=== PATIENT | male | born 1955 | race African-American/Black ===

== ENCOUNTER 2025-01-15 09:30 | Emergency (ER) | payer MEDICARE, SELFPAY ==
[2025-01-15 09:37] VITALS: BP 139/88; BP 141/65; PULSE 89; PULSE 91; RESP 17; TEMP 36.7; O2SAT 97; O2SAT 99; BMI 34.7
--- NOTE | 2025-01-15 09:41 | ECG_ITS ---
Test Reason : syncope Blood Pressure : */* mmHG Vent. Rate : 82 BPM Atrial Rate : 82 BPM P-R Int : 116 ms QRS Dur : 82 ms QT Int : 386 ms P-R-T Axes : 41 -21 46 degrees QTcB Int : 450 ms Normal sinus rhythm Increased R/S ratio in V1, consider early transition or posterior infarct Abnormal ECG No previous ECGs available Referred By: Ashley Grant Electronically Signed By: AARON HERNÁNDEZ MD
--- NOTE | 2025-01-15 09:47 | ED_ITS ---
HPI - Syncope General Chief Complaint: Syncope Stated Complaint: DIZZY W/SYNCOPAL EPISODE,ETOH LAST NIGHT PER EMS Time Seen by Provider: 01/15/25 09:32 Source: patient and EMS Mode of arrival: EMS Limitations: no limitations History of Present Illness ED Provider: EUFEMIA CHEN narrative: 69 yo male who was on metoprolol in the very remote past for HTN otherwise has not been to the doctor in several years - he reports he drinks every night vodka to get a good buzz to help him sleep. No seizure reported in past. He notes no recent GIB, n/v/d, CP/SOB, travel. He lives here newly from [place] and it is loud and he cannot sleep. This AM upon walking and getting up he felt dizzy and like he was going to pass out - no CP/SOB, son caught him no trauma and he was out for a few minutes - no loss of pulse, no cyanosis, no vomiting, no confusion, no seizurs\es MD complaint: loss of consciousness Onset (ago): minute(s) ([employer]) Duration of episode: 3 -: minutes(s) Prodromal symptoms: vision changes, lightheaded and nausea/vomiting Witnessed: Yes - by Bystander Context: standing up Injuries sustained associated with event: none Current symptoms: none Treatments prior to arrival: none Related Data Allergies Allergy/AdvReac Type Severity Reaction Status Date / Time No Known Allergies Allergy Verified 01/15/25 09:39 Review of Systems 2 Review of Systems: Constitutional : No Fever, No Chills, No Fatigue ENT/Mouth : No sore throat, No Rhinorrhea Eyes: No Eye Pain, No Swelling, No Redness Cardiovascular : No Chest Pain, No SOB, No Dyspnea on Exertion Respiratory : No Cough, No Sputum Gastrointestinal : No Nausea, No Vomiting, No Diarrhea, No abdominal Pain Genitourinary : No Dysuria, No Urinary Frequency, No Hematuria, Musculoskeletal : No joint pain, No Myalgias, No Joint Swelling Skin : No Skin Lesions, No rash Neuro : No Weakness, No Numbness, No Dizziness, positive syncope All other systems reviewed and are negative [facility] Past Medical History Attestation statement: The following information was validated with the patient. Source: old records reviewed Medical History HTN (hypertension) Social History Social History (Updated 01/15/25 @ 09:50 by Ashley Grant DO) Alcohol intake: current Patient Tobacco Use Status: Tobacco use Unknown Advance Directives: No Advance Directives Information Provided: Yes Do you have a plan to hurt others: No Plan Physical Exam 2 Vital Signs: Vital Signs: Last Vital Signs Temp 98.2 F 01/15/25 10:17 Pulse 107 H 01/15/25 10:37 Resp 18 01/15/25 10:17 BP 130/73 01/15/25 10:37 Pulse Ox 98 01/15/25 10:17 O2 Del Method Room Air 01/15/25 10:17 BMI result Body Mass Index 34.7 Appearance: Alert. Oriented X3. No acute distress. Eyes: Pupils equal, round and reactive to light. ENT: Pharynx normal. atraumatic Neck: Normal inspection. Neck supple. CVS: Normal heart rate and rhythm. Pulses normal. Respiratory: No respiratory distress. Breath sounds normal. Abdomen: Soft and nontender. Skin: Skin warm and dry. Normal skin color. Normal skin turgor. Extremities: No lower extremity edema. No calf ttp Neuro: Oriented X 3. No motor deficit. No sensory deficit. CN2-12 intact Course Course Course Narrative: on dizziness when standing spoke to son as well Medications Administered Discontinued Medications Generic Name Dose Route Start Last Admin Trade Name Freq PRN Reason Stop Dose Admin Thiamine HCl 200 mg/ Sodium 102 mls @ 204 mls/hr 01/15/25 09:41 01/15/25 10:15 Chloride IV 01/15/25 10:10 204 mls/hr ONCE ONE Administration Lactated Ringer's 1,000 mls @ 999 mls/hr 01/15/25 10:40 01/15/25 10:54 Lr IV 01/15/25 11:40 999 mls/hr .Q1H1M ONE Administration Magnesium Sulfate 2 gm in 50 mls @ 25 mls/hr 01/15/25 10:43 01/15/25 10:54 Magnesium Sulfate/H2o IV 01/15/25 12:42 25 mls/hr ONCE ONE Administration Potassium Chloride 40 meq 01/15/25 10:43 01/15/25 10:51 Potassium Chloride Er 20 Meq Tab.Er.Prt PO 01/15/25 10:44 40 meq ONCE ONE Administration Medical Decision Making Medical Decision Making MDM Narrative: 69 yo male who was on metoprolol in the very remote past for HTN here with c/o syncope with prodrome today and no CP/SOB he admits to drinking a lot each night throughout the night he has no GIB symptoms at this time labs, orthos, lytes, EKG. Could be anemia, dehydration, syncope orthostatics, ETOH abuse. No trauma reported or seen Differential Diagnosis Differential Diagnoses: The differential diagnosis associated with the presentation includes syncope, dehydration, anemia, orthostatics, ETOH abuse no CP/SOB or signs of DVT to suggest ACS or VTE Admission/Observation Consideration of admission/observation: Escalation of care including admission/observation considered at this time other than ETOH repeat trop negative no CP/SOB to suggest VTE repeat trop flat, steady gait, orthos negative stable for DC Lab Data MDM Lab Attestation statement: I reviewed the patient's lab results. 01/15/25 10:14 01/15/25 10:14 Labs: Lab Results 01/15/25 01/15/25 Range/Units 10:14 12:18 WBC 6.2 (4.8-10.8) X10*3/uL RBC 2.82 L (4.60-5.80) X10*6/uL Hgb 10.9 L (14.0-18.0) g/dl Hct 30.8 L (42.0-52.0) % MCV 109.2 H (80.0-98.0) fL MCH 38.7 H (27.0-33.0) pg MCHC 35.4 (31.0-36.0) g/dl RDW 15.3 (11.0-16.0) % Plt Count 178 (160-400) X10*3/uL MPV 9.8 (9.4-12.4) fL Immature Gran % (Auto) 0.5 H (0.0-0.4) % Neut % (Auto) 62.8 (45-73) % Lymph % (Auto) 26.8 (20-40) % Marion % (Auto) 9.4 (2-11) % Eos % (Auto) 0.2 (0-4) % Baso % (Auto) 0.3 (0-2) % Lymph # (Auto) 1.7 (1.2-4.9) X10*3/uL [place] # (Auto) 0.6 (0.1-1.2) X10*3/uL Eos # (Auto) 0.0 (0.0-0.4) X10*3/uL Baso # (Auto) 0.0 (0.0-0.2) X10*3/uL Abs Immat Gran (auto) 0.03 (0.00-0.03) X10*3/uL Absolute Neuts (auto) 3.9 (2.0-8.3) x10*3/uL Absolute Nucleated RBC 0.000 (0.0-0.012) X10*3/uL Nucleated RBC % (auto) 0.0 (0.0-0.2) /100WBC Sodium 142 (135-145) mmol/L Potassium 3.1 L (3.3-5.1) mmol/L Chloride 105 (96-108) mmol/L Carbon Dioxide 21 L (22-29) mmol/L Anion Gap 19 (12-20) BUN 7 L (9-16) mg/dL Creatinine 0.88 (0.5-1.4) mg/dL Estim Creat Clear Calc 83.7 Estimated GFR > 60 Random Glucose 74 (60-115) mg/dL Calcium 8.7 (8.4-10.2) mg/dL Magnesium 1.7 (1.6-2.6) mg/dL Total Bilirubin 0.8 (0.0-1.0) mg/dL Direct Bilirubin 0.5 (0.0-0.5) mg/dL AST 346 H (5-37) U/L ALT 87 H (0-40) U/L Alkaline Phosphatase 212 H (39-117) U/L Troponin I High Sens 8.1 8.6 (<3.5-35.0) ng/L Total Protein 7.2 (6.5-8.0) g/dL Albumin 3.7 (3.5-5.0) g/dL Lipase 13 (8-78) U/L Ethyl Alcohol 183 mg/dL Independent Interpretation I performed an independent interpretation of an: EKG Interpretation: Rate: 82 Rhythm: NSR [place]: left Normal P waves. Normal ELAINE. Normal QRS complex. ST T wave : normal no LIZBETH qTC: 450 prior studies: no acute ischemia The study has been interpreted contemporaneously by me. . Independent Historian Clinical information obtained from an independent historian. History obtained from or confirmed by: EMS Discharge Plan Discharge Clinical Impression: Vasovagal syncope, Alcohol use disorder, Hypokalemia Patient Disposition: Home, Self-Care Instructions: Hypokalemia (ED), Syncope (ED), Alcohol Use Disorder (ED) Additional Instructions: tests show a very positive alcohol level normal kidney function slight elevation in liver enzymes due to alcohol mild anemia 10.9 EKG and blood pressure when standing is normal at this time please call and follow up with primary care doctor limit your drinking you can follow up with our alcohol use clinic if necessary return for any worsening symptoms or concerns your potassium was slightly low we replaced it and also gave you vitamins through the IV Alcohol use disorder You were seen in the Emergency Department today for treatment of alcohol use disorder.? You may have been given medications to help with your withdrawal symptoms.? Please do not drink alcohol with them. This is very dangerous and can cause respiratory depression or other adverse reactions depending on the medication. If you would like to cut down or stop your alcohol use please consider calling our outpatient Addiction Treatment office:? [facility] (M-F 9a-5p) [address] [place] [address] ? You have also been given a list of treatment providers in the area that can assist as well.? If you experience seizures, vomiting blood, black stools, falls, severe headache, chest pain, fevers, trouble breathing, hallucinations or any other concerns you need to call 911 or seek immediate care. Please stay hydrated. Print Language: Scottish
--- NOTE | 2025-01-15 09:52 | MHC.EDTECH ---
ekg is done and passed to Dr. Grant, not crossing over on worklist
[2025-01-15] MEDS: Thiamine HCL 200 MG in 0.9 % Sodium Chloride 100 ML 204 MG IV (10:15)
[2025-01-15 10:17] VITALS: BP 138/89; PULSE 91; RESP 18; TEMP 36.8; O2SAT 98
[2025-01-15 10:20] LABS: MANUAL DIFF FLAG NO
[2025-01-15 10:25] LABS: Basophils Percent Auto 0.3 % (0-2); Eosinophils Percent Auto 0.2 % (0-4); Hematocrit 30.8 % (42.0-52.0); Hemoglobin 10.9 g/dl (14.0-18.0); Imm Gran Abs Auto 0.03 X10*3/uL (0.00-0.03); Imm Gran Pct Auto 0.5 % (0.0-0.4); Lymphocytes Absolute Auto 1.7 X10*3/uL (1.2-4.9); Lymphocytes Percent Auto 26.8 % (20-40); Mean Corpuscular HGB Conc 35.4 g/dl (31.0-36.0); Mean Corpuscular Hemoglobin 38.7 pg (27.0-33.0); Mean Corpuscular Volume 109.2 fL (80.0-98.0); Mean Platelet Volume 9.8 fL (9.4-12.4); Monocytes Absolute Auto 0.6 X10*3/uL (0.1-1.2); Monocytes Percent Auto 9.4 % (2-11); Neutrophils Absolute Auto 3.9 x10*3/uL (2.0-8.3); Neutrophils Percent Auto 62.8 % (45-73); Platelet Count 178 X10*3/uL (160-400); Red Blood Count 2.82 X10*6/uL (4.60-5.80); Red Cell Distribution Width 15.3 % (11.0-16.0); White Blood Count 6.2 X10*3/uL (4.8-10.8)
[2025-01-15 10:37] VITALS: BP 130/73; BP 130/85; BP 140/81; PULSE 102; PULSE 107; PULSE 89
[2025-01-15 10:40] LABS: Alanine Aminotransferase 87 U/L (0-40); Albumin Level 3.7 g/dL (3.5-5.0); Anion Gap 19 (12-20); Aspartate Amino Transferase 346 U/L (5-37); Bilirubin Direct 0.5 mg/dL (0.0-0.5); Bilirubin Total 0.8 mg/dL (0.0-1.0); Blood Urea Nitrogen 7 mg/dL (9-16); Calcium 8.7 mg/dL (8.4-10.2); Carbon Dioxide 21 mmol/L (22-29); Chloride 105 mmol/L (96-108); Creatinine Clr Calc Pharmacy 83.7; Estimated Glomerular Filt Rate > 60; Ethanol 183 mg/dL; Glucose Random 74 mg/dL (60-115); Lipase 13 U/L (8-78); Magnesium 1.7 mg/dL (1.6-2.6); Potassium 3.1 mmol/L (3.3-5.1); Sodium 142 mmol/L (135-145); Total Protein 7.2 g/dL (6.5-8.0)
[2025-01-15 10:41] LABS: Troponin-I High Sensitivity 8.1 ng/L (<3.5-35.0)
[2025-01-15] MEDS: Potassium Chloride ER 20 MEQ TAB.ER.PRT 40 MEQ PO (10:51)
[2025-01-15] MEDS: Lactated Ringers 1,000 ML 999 ML IV (10:54)
[2025-01-15] MEDS: Magnesium Sulfate/H2O 2 GM/50 ML PIGGYBACK IV (10:54)
[2025-01-15 11:06] LABS: Alkaline Phosphatase 212 U/L (39-117)
[2025-01-15 12:47] LABS: Troponin-I High Sensitivity 8.6 ng/L (<3.5-35.0)
[2025-01-15 13:04] VITALS: O2SAT 99
[2025-01-15 13:11] VITALS: BP 136/82; PULSE 98; RESP 18; TEMP 36.7; O2SAT 97
[2025-01-15 13:12] VITALS: BP 136/82; PULSE 98; RESP 18; TEMP 36.7; O2SAT 97
== END 2025-01-15 13:12 | disposition home or self-care (01) ==
PROVIDERS: Emergency Provider Emergency Medicine
DX: R55 Syncope and collapse (principal); E87.6 Hypokalemia; F10.99 Alcohol use, unspecified with unspecified alcohol-induced disorder; Y90.6 Blood alcohol level of 120-199 mg/100 ml; Z79.899 Other long term (current) drug therapy
CPT/HCPCS: 36415; 80048; 80076; 80307; 83690; 83735; 84484; 85025; 93005; 96361; 96365; 96375; 99285; J3411; J3475; J7120

== ENCOUNTER → 2025-01-15 09:41 | Outpatient (BNV) | payer MEDICARE, SELFPAY | PROVIDERS: Emergency Provider Emergency Medicine; Visit Provider Internal Medicine Cardiovascular Disease | DX: R94.31 Abnormal electrocardiogram [ECG] [EKG] (principal); R55 Syncope and collapse | CPT/HCPCS: 93010 ==

== ENCOUNTER 2025-06-05 19:39 | Inpatient (IN) | payer MEDICARE, SELFPAY ==
--- NOTE | ~2025-06-05 | XR_ITS ---
CLINICAL HISTORY: pain 4 view left knee Comparison: None provided Findings: No fractures or dislocations. Tricompartmental osteoarthritis. No joint effusion. No radiopaque foreign body. IMPRESSION: 1. No acute findings. This document has been electronically signed by: Jasmin Pillai MD on 06/05/2025 20:34:59
--- NOTE | ~2025-06-05 | US_ITS ---
CLINICAL HISTORY: elevated lfts, r o gallstones --- Additional Notes or Special Instructions: liver and gallbladder US abdomen limited Comparison: CT/SR - CT ABDOMEN PELVIS W IV CON - 06/05/25 21:34 EDT Findings: The liver is diffusely hyperechoic and measures up to 20.4 cm in length. Couple right hepatic lobe subcentimeter cysts. There is no intrahepatic bile duct dilatation. The common bile duct is 5 mm in diameter. The gallbladder is normal. There is no sonographic Evangelista sign. No evidence of right hydronephrosis. No ascites. IMPRESSION: 1. Hepatic steatosis and hepatomegaly. 2. Normal gallbladder. This document has been electronically signed by: Moncho Howell DO on 06/07/2025 12:15:56
--- NOTE | ~2025-06-05 | CT_ITS ---
CLINICAL HISTORY: poor appetite, abnormal LFTs, elevated lipase, brayan CT abdomen and pelvis with contrast Comparison: None provided Findings: Mild dependent atelectasis. Small hiatal hernia. Calcified granulomas in the spleen. Severe hepatic steatosis. Gallbladder, pancreas, and adrenal glands are within normal limits. No biliary duct dilatation. No hydronephrosis. Symmetric contrast enhancement of the kidneys. No bowel obstruction, pneumoperitoneum, or pneumatosis. Small fat containing umbilical hernia. Aortic atherosclerosis. No aneurysm. Pelvic contents unremarkable. Normal appendix. No acute fracture. IMPRESSION: 1. No acute intraabdominal or pelvic pathology. 2. Severe hepatic steatosis. This document has been electronically signed by: Jasmin Pillai MD on 06/05/2025 22:33:31
--- NOTE | ~2025-06-05 | XR_ITS ---
CLINICAL HISTORY: pain 4 view right knee Comparison: None provided Findings: No fractures or dislocations. Tricompartmental osteoarthritis. No joint effusion. No radiopaque foreign body. IMPRESSION: 1. No acute findings. This document has been electronically signed by: Jasmin Pillai MD on 06/05/2025 20:34:56
--- NOTE | ~2025-06-05 | MR_ITS ---
CLINICAL HISTORY: dizziness vertiago perssistent -? cerebellar cva MR Brain without gadolinium Comparison: None provided Findings: No restricted diffusion. No intra-axial mass or hemorrhage. No midline shift. No hydrocephalus. Vascular flow voids are intact. Mild generalized cerebral volume loss and moderate periventricular and subcortical T2/ FLAIR hyperintensities. The orbits are normal. The sinuses and mastoid air cells are clear. No focal bone lesion. IMPRESSION: No acute infarct, intracranial hemorrhage or mass lesions. Mild generalized cerebral volume loss and moderate periventricular and subcortical chronic microvascular ischemic changes. This document has been electronically signed by: Fahad Patel MD on 06/08/2025 20:37:11
--- NOTE | 2025-06-05 19:43 | ECG_ITS ---
Test Reason : WEAKNESS Blood Pressure : */* mmHG Vent. Rate : 102 BPM Atrial Rate : 102 BPM P-R Int : 144 ms QRS Dur : 76 ms QT Int : 346 ms P-R-T Axes : 48 -16 28 degrees QTcB Int : 450 ms Sinus tachycardia with Premature atrial complexes Otherwise normal ECG When compared with ECG of 15-Jan-2025 09:44, Premature atrial complexes are now Present Referred By: Ashley Grant Electronically Signed By: Sourav Smith
[2025-06-05 19:45] VITALS: BP 138/70; PULSE 112; O2SAT 100; BMI 26.6
[2025-06-05 20:48] LABS: MANUAL DIFF FLAG NO
--- NOTE | 2025-06-05 20:48 | ED_ITS ---
HPI - General Adult General Chief complaint: General Medical Stated complaint: syncopal episode Time Seen by Provider: 06/05/25 19:42 Source: patient, EMS and old records reviewed Mode of arrival: EMS Limitations: no limitations History of Present Illness ED Provider: EUFEMIA CHEN narrative: 69 yo male with PMH of ETOH use disorder, HTN who notes he has been tired, weak, difficulty walking due to issues with pain in both knees and he doesn't eat well. He notes recently when he tries to get up and he feels like he has pain around the knees and gets stuck. He states he doesn't eat well as no one cooks for him. He notes he lives with his son. Farzana he decided he would try [facility] but then he tried to get up and head back to the van and he had a hard time. No falls. He had to sit himself down as he couldn't get all the way up. He notes this has been going on for 5+ months. I asked if he would better served at a rehab and he states yes. He states he is so weak and doesn't feel well. complaint: difficulty walking, caring for himself, cannot walk well Onset (ago): month(s) (5+) Location: left, right and lower extremity Radiation: non-radiation Severity: moderate Quality: aching Pain Consistency: intermittent Relieving factors: none Exacerbating factors: movement Associated symptoms: weakness and other (weight loss) Treatments prior to arrival: none Related Data Allergies Allergy/AdvReac Type Severity Reaction Status Date / Time No Known Allergies Allergy Verified 06/05/25 19:47 Review of Systems 2 Review of Systems: Constitutional : No Fever, No Chills ENT/Mouth : No Ear Pain, No Hoarseness, No sore throat Eyes: No Eye Pain, No Swelling, No Redness, No Foreign Body Cardiovascular : No Chest Pain, No SOB Respiratory : No Cough, No Dyspnea Gastrointestinal : No Nausea, No Vomiting, No Diarrhea, No abdominal Pain Genitourinary : No Dysuria, No Hematuria Musculoskeletal : positive joint pain, No Myalgias, No Joint Swelling Skin : No Skin lacerations, No rash Neuro :pos Weakness, No Numbness, No Loss of Consciousness, No Dizziness, No Headache All other systems reviewed and are negative [facility] Past Medical History Attestation statement: The following information was validated with the patient. Source: old records reviewed Medical History HTN (hypertension) Social History Social History Alcohol intake: current Patient Tobacco Use Status: Tobacco use Unknown Advance Directives: No Advance Directives Information Provided: Yes Do you have a plan to hurt others: No Plan Physical Exam ED Vital Signs: Vital Signs - 24 hr 06/05/25 22:30 Temperature 98.3 F Pulse Rate 86 Respiratory Rate 16 Blood Pressure 101/55 L Pulse Oximetry 99 Oxygen Delivery Method Room Air BMI result Body Mass Index 26.6 Appearance: Alert. Oriented X3. No acute distress. disheveled, older than stated age, clothes are dirty and unkempt Eyes: Pupils equal, round and reactive to light. ENT: Pharynx normal. atraumatic Neck: Normal inspection. Neck supple. CVS: Normal heart rate and rhythm. Pulses normal. Respiratory: No respiratory distress. Breath sounds normal. Abdomen: Soft and nontender. Skin: Skin warm and dry. Normal skin color. Normal skin turgor. Extremities: No lower extremity edema. No calf ttp Neuro: Oriented X 3. No motor deficit. No sensory deficit. CN2-12 intact he can move legs but needs help getting up with pain in both knees Course Course Course Narrative: infection suspected at 1028pm IV ceftriaxone/cultures/lactic acid ordered Reevaluation(s) Reevaluation #1: bili elevated due to likely chronic ETOH use/fatty liver and not infection or severe sepsis delay in lactic acid and cultures due to difficult stick and had to have repeated efforts 1123pm EUEFMIA Medications Administered Discontinued Medications Generic Name Dose Route Start Last Admin Trade Name Freq PRN Reason Stop Dose Admin Magnesium Sulfate 2 gm in 50 mls @ 25 mls/hr 06/05/25 21:06 06/05/25 21:55 Magnesium Sulfate/H2o IV 06/05/25 23:05 25 mls/hr ONCE ONE Administration Thiamine HCl 200 mg/ Sodium 102 mls @ 204 mls/hr 06/05/25 21:06 06/05/25 21:55 Chloride IV 06/05/25 21:35 204 mls/hr ONCE ONE Administration Iohexol 85 ml 06/05/25 21:37 06/05/25 21:38 Iohexol 350 Mg/Ml 100 Ml Infus..Btl IV 06/05/25 21:38 85 ml ONCE ONE Administration Medical Decision Making Medical Decision Making [facility] Narrative: 69 yo male with PMH of ETOH use disorder, HTN who notes he has been tired, weak, difficulty walking due to issues with pain in both knees now here with another episode and needing help to get up he has no dizziness or near syncope it is that he gets stuck due to his knees and legs not working as well. He has no chest pain/dyspnea/fevers/n/v/d. He is disheveled and tells me he doesn't eat as no one cooks for him. Differential Diagnosis Differential Diagnoses: The differential diagnosis associated with the presentation includes FTT, dehydration, anemia, arthritis Admission/Observation Consideration of admission/observation: Escalation of care including admission/observation considered admit for further management and work up including IV abx Consult Healthcare Provider Management of the patient was discussed with: Hospitalist (will admit) Lab Data [facility] Lab Attestation statement: I reviewed the patient's lab results. 06/05/25 20:42 06/05/25 20:42 Labs: Lab Results 06/05/25 06/05/25 06/05/25 Range/Units 20:42 22:15 23:07 WBC 6.1 (4.8-10.8) X10*3/uL RBC 2.44 L (4.60-5.80) X10*6/uL Hgb 9.5 L (14.0-18.0) g/dl Hct 26.8 L (42.0-52.0) % MCV 109.8 H (80.0-98.0) fL MCH 38.9 H (27.0-33.0) pg MCHC 35.4 (31.0-36.0) g/dl RDW 15.3 (11.0-16.0) % Plt Count 140 L (160-400) X10*3/uL MPV 10.3 (9.4-12.4) fL Immature Gran % (Auto) 1.3 H (0.0-0.4) % Neut % (Auto) 75.9 H (45-73) % Lymph % (Auto) 13.1 L (20-40) % Carbon % (Auto) 9.3 (2-11) % Eos % (Auto) 0.2 (0-4) % Baso % (Auto) 0.2 (0-2) % Lymph # (Auto) 0.8 L (1.2-4.9) X10*3/uL Carbon # (Auto) 0.6 (0.1-1.2) X10*3/uL Eos # (Auto) 0.0 (0.0-0.4) X10*3/uL Baso # (Auto) 0.0 (0.0-0.2) X10*3/uL Abs Immat Gran (auto) 0.08 H (0.00-0.03) X10*3/uL Absolute Neuts (auto) 4.6 (2.0-8.3) x10*3/uL Absolute Nucleated RBC 0.020 H (0.0-0.012) X10*3/uL Nucleated RBC % (auto) 0.3 H (0.0-0.2) /100WBC Sodium 139 (135-145) mmol/L Potassium 4.0 D (3.3-5.1) mmol/L Chloride 103 (96-108) mmol/L Carbon Dioxide 23 (22-29) mmol/L Anion Gap 17 (12-20) BUN 8 L (9-16) mg/dL Creatinine 1.20 (0.5-1.4) mg/dL Estim Creat Clear Calc 58.0 Estimated GFR > 60 Random Glucose 202 H (60-115) mg/dL Lactic Acid 3.9 H* (0.5-2.0) mmol/L Calcium 8.6 (8.4-10.2) mg/dL Magnesium 1.4 L* (1.6-2.6) mg/dL Total Bilirubin 1.9 H (0.0-1.0) mg/dL Direct Bilirubin 1.2 H (0.0-0.5) mg/dL AST 157 H (5-37) U/L ALT 65 H (0-40) U/L Alkaline Phosphatase 141 H (39-117) U/L Total Protein 6.2 L (6.5-8.0) g/dL Albumin 3.4 L (3.5-5.0) g/dL Lipase 161 H (8-78) U/L Urine Color PINK Urine Appearance Cloudy Urine pH 6.0 (5.0-9.0) Ur Specific [place] <= 1.005 (1.005-1.025) Urine Protein 100 (2+) H (Neg-Trace) mg/dL Urine Glucose (UA) Negative (Negative) mg/dL Urine Ketones Negative (Negative) mg/dL Urine Blood Large (3+) H (Negative) Urine Nitrite Positive H (Negative) Ur Leukocyte Esterase Moderate (2+) H (Negative) Urine RBC >20 H (0-2) /HPF Urine WBC >50 H (0-5) /HPF Ur Squamous Epith Cells 0-2 (0-2) /HPF Urine Bacteria 4+ (None Seen) Hyaline Casts 0-2 (0-2) /LPF Ethyl Alcohol < 10 mg/dL Independent Interpretation I performed an independent interpretation of an: EKG, Plain X-Ray (no acute trauma) and CT Scan (fatty liver) Interpretation: Rate: 102 Rhythm: sinus tachycardia with PACs [place]: left Normal P waves. Normal ELAINE. Normal QRS complex. ST T wave : no LIZBETH, flat t waves III qTC: 450 prior studies: no acute ischemia The study has been interpreted contemporaneously by me. . Radiology Impression Discussion of test interpretation with radiology: I have reviewed the radiologist's reading. Independent Historian Clinical information obtained from an independent historian. History obtained from or confirmed by: EMS External Record Review External record reviewed: Outpatient record Social Determinants Patient?s care significantly limited by Social Determinants of Health including: Problems related to primary support group Discharge Plan Discharge Clinical Impression: Hypomagnesemia, Abnormal LFTs, Acute UTI, Acidosis, lactic Patient Disposition: Admitted As Inpatient Print Language: Kazakh
[2025-06-05 20:59] LABS: Hematocrit 26.8 % (42.0-52.0); Hemoglobin 9.5 g/dl (14.0-18.0); Imm Gran Abs Auto 0.08 X10*3/uL (0.00-0.03); Imm Gran Pct Auto 1.3 % (0.0-0.4); Lymphocytes Absolute Auto 0.8 X10*3/uL (1.2-4.9); Mean Corpuscular HGB Conc 35.4 g/dl (31.0-36.0); Mean Corpuscular Hemoglobin 38.9 pg (27.0-33.0); Mean Corpuscular Volume 109.8 fL (80.0-98.0); NRBC Abs Auto 0.020 X10*3/uL (0.0-0.012); NRBC Pct Auto 0.3 /100WBC (0.0-0.2); Platelet Count 140 X10*3/uL (160-400); Red Blood Count 2.44 X10*6/uL (4.60-5.80); White Blood Count 6.1 X10*3/uL (4.8-10.8)
[2025-06-05 21:06] LABS: Alanine Aminotransferase 65 U/L (0-40); Albumin Level 3.4 g/dL (3.5-5.0); Alkaline Phosphatase 141 U/L (39-117); Anion Gap 17 (12-20); Aspartate Amino Transferase 157 U/L (5-37); Blood Urea Nitrogen 8 mg/dL (9-16); Calcium 8.6 mg/dL (8.4-10.2); Carbon Dioxide 23 mmol/L (22-29); Chloride 103 mmol/L (96-108); Creatinine Clr Calc Pharmacy 58.0; Estimated Glomerular Filt Rate > 60; Lipase 161 U/L (8-78); Magnesium 1.4 mg/dL (1.6-2.6); Potassium 4.0 mmol/L (3.3-5.1); Sodium 139 mmol/L (135-145); Total Protein 6.2 g/dL (6.5-8.0)
[2025-06-05] MEDS: iohexoL 350 MG/ML 100 ML INFUS..BTL 85 ML IV (21:38)
[2025-06-05] MEDS: Thiamine HCL 200 MG in 0.9 % Sodium Chloride 100 ML 204 MG IV (21:55)
[2025-06-05] MEDS: Magnesium Sulfate/H2O 2 GM/50 ML PIGGYBACK IV (21:55)
[2025-06-05 22:22] LABS: Appearance Urine Cloudy; Glucose Urine UA Negative (Negative); PH 6.0 (5.0-9.0); Specific Gravity - Urine <= 1.005 (1.005-1.025); UMIC TRIGGER UACC YES
[2025-06-05 22:28] LABS: UACC Culture Trigger YES
[2025-06-05 22:30] VITALS: BP 101/55; PULSE 86; RESP 16; TEMP 36.8; O2SAT 99
[2025-06-05] MEDS: Lactated Ringers 1,000 ML 999 ML IV ×2 (23:20→23:59)
[2025-06-06] VITALS (14 sets, daily range): BP systolic 103–140; BP diastolic 64–91; PULSE 78–111; RESP 12–20; TEMP 36.1–36.8; O2SAT 94–99; BMI 32.0
--- NOTE | 2025-06-06 00:42 | PM.IMHP ---
History of Present Illness Date of Service: 06/05/25 Attending physician on admission: Kash Fernandez Chief Complaint: Dizziness Jus Beatty is a 69 years old man with past medical history significant for gout was brought to the emergency department via ambulance after he had an event of dizziness today. He also mentioned that his legs became suddenly weak and had to sit himself down. He denied any lower back pain or numbness to the lower extremities. He denied loss of consciousness. He also denied any headache, acute visual disturbances, focal weakness, speech difficulty, swallowing difficulty, chest pain, shortness on breath, cough, fever, chills, abdominal pain, nausea, vomiting or diarrhea. He has noted that his urine is getting darker and have mild pain with urination. He drinks two shots of vodka before going to sleep and has been doing this for a long time. He smoked cigars sometimes and denied illicit drug use. He only takes medications for gout, allopurinol. He denied history of high blood pressure, diabetes mellitus, hyperlipidemia or liver disease. In the ED, he was found to have stable vital signs. Blood workup showed no leukocytosis. Hemoglobin is 9.5 and platelets 140. There is hypomagnesemia 1.4 but no other electrolyte imbalances. There is lactic acidosis of 3.9. LFTs are significantly elevated: Total bilirubin 1.9, direct bilirubin 1.2, AST 157, ALT 55, alk-phos 141. Lipase is 161 and albumin. Urinalysis consistent with hematuria and urinary tract infection. ETOH level is < 10. Knee x-rays are negative. Abdominal pelvis CT scan with IV contrast showed no acute intra-abdominal/pelvis abnormalities. There is severe hepatic steatosis. ECG shows sinus tachycardia with PACs and no ischemic changes. ED Tx: Magnesium 2 g IV, thiamine 200 mg IV, ringer lactate 1 L bolus, ceftriaxone 1 g IV Review of Systems Review of Systems: All 12 systems were reviewed and normal except as noted in HPI. [facility] Medical History (Updated 06/06/25 @ 01:16 by Kash Fernandez MD) Gout HTN (hypertension) Social History Alcohol intake: current Patient Tobacco Use Status: Tobacco use Unknown Advance Directives: No Advance Directives Information Provided: Yes Do you have a plan to hurt others: No Plan Meds Allergies Allergy/AdvReac Type Severity Reaction Status Date / Time No Known Allergies Allergy Verified 06/05/25 19:47 Active Medications: Current Medications Acetaminophen (Acetaminophen 325 Mg Tablet) 650 mg PO Q6H PRN PRN Reason: Pain, Mild 1-3,fever,headache Calcium Carbonate (Calcium Carbonate 750 Mg Tab.Chew) 750 mg PO Q4H PRN PRN Reason: Heartburn Ceftriaxone Sodium (Ceftriaxone Sodium 1 Gm Vial) 1 gm IVPUSH Q24H CHEY Magnesium Hydroxide (Milk Of Magnesia 30 Ml Oral.Susp) 30 ml PO DAILY PRN PRN Reason: Constipation Melatonin (Melatonin 3 Mg Tablet) 6 mg PO BEDTIME PRN PRN Reason: Insomnia Sodium Chloride (0.9 % Sodium Chloride Flush 3 Ml Syringe) 3 ml IVFLUSH QSHIFT CHEY Physical Exam Vital Signs and Narrative: Vital Signs: Last Vital Signs Temp 98.3 F 06/05/25 22:30 Pulse 86 06/05/25 22:30 Resp 16 06/05/25 22:30 BP 101/55 L 06/05/25 22:30 Pulse Ox 99 06/05/25 22:30 O2 Del Method Room Air 06/05/25 22:30 BMI result Body Mass Index 26.6 Constitutional - Awake and Alert, No apparent distress HEENT - PERRL, EOMI. Normal sclerae. Dry oral mucosa. Heart - S1S2, RRR, No edema Lungs - Normal lung expansion, Normal respiratory effort, No respiratory distress, CTA bilaterally Abdomen - NT / ND; +BS; No rebound or guarding Extremities - no calf tenderness bilaterally, no swelling Musculoskeletal - Normal inspection, normal ROM Skin - Warm/Dry. No jaundice. Neurological - Alert & oriented x3. Moving all extremities spontaneously. Normal speech. Psychological - Appropriate affect Results Labs 06/05/25 20:42 06/05/25 20:42 Labs: Laboratory Results - last 24 hr 06/05/25 06/05/25 06/05/25 20:42 22:15 23:07 MCV 109.8 H MCH 38.9 H MCHC 35.4 RDW 15.3 Plt Count 140 L MPV 10.3 Immature Gran % (Auto) 1.3 H Neut % (Auto) 75.9 H Lymph % (Auto) 13.1 L [place] % (Auto) 9.3 Eos % (Auto) 0.2 Baso % (Auto) 0.2 Lymph # (Auto) 0.8 L [place] # (Auto) 0.6 Eos # (Auto) 0.0 Baso # (Auto) 0.0 Abs Immat Gran (auto) 0.08 H Absolute Neuts (auto) 4.6 Absolute Nucleated RBC 0.020 H Nucleated RBC % (auto) 0.3 H Anion Gap 17 Estim Creat Clear Calc 58.0 Estimated GFR > 60 Random Glucose 202 H Lactic Acid 3.9 H* Calcium 8.6 Magnesium 1.4 L* Total Bilirubin 1.9 H Direct Bilirubin 1.2 H AST 157 H ALT 65 H Alkaline Phosphatase 141 H Total Protein 6.2 L Albumin 3.4 L Lipase 161 H Urine Color PINK Urine Appearance Cloudy Urine pH 6.0 Ur Specific [place] <= 1.005 Urine Protein 100 (2+) H Urine Glucose (UA) Negative Urine Ketones Negative Urine Blood Large (3+) H Urine Nitrite Positive H Ur Leukocyte Esterase Moderate (2+) H Urine RBC >20 H Urine WBC >50 H Ur Squamous Epith Cells 0-2 Urine Bacteria 4+ Hyaline Casts 0-2 Ethyl Alcohol < 10 Assessment and Plan (1) Abnormal LFTs: Status: Acute (2) Acute UTI: Status: Acute (3) Acidosis, lactic: Status: Acute (4) Hypomagnesemia: Status: Acute Plan Jus Beatty is a 69 y/l man presents with: Elevated LFTs likely secondary to severe hepatic steatosis due to alcohol abuse. Patient advised to avoid alcohol consumption. Check GGT, INR tightness panel. Continue to monitor. GI consult. Acute lactic acidosis. Doubt severe sepsis. Likely secondary to above/liver disease. Received LE 2L bolus. Blood cultures obtained -will follow results. Continue to monitor. Alcohol use disorder. [facility] protocol. Continue thiamine, folic acid and multivitamins. Hypomagnesemia, secondary to above. Telemetry. Receive magnesium sulfate 2 mg IV in ED. start treatment with magnesium oxide 400 mg p.o. b.i.d.. Continue to monitor. Urinary tract infection. Continue ceftriaxone 1 g IV daily. Urine culture obtained -we will follow results. Macrocytic anemia. Anemia workup. Continue to monitor. Dizziness. Fall precautions. Check TTE. Lower extremities weakness. No back pain or numbness. Fall precautions. Check vitamin-D. Physiotherapy. Gout. Continue allopurinol. Remote history of hypertension. No longer on metoprolol. BP is 101/55 tonight. Continue to monitor BP. Code status: Full DVT prophylaxis: SCDs Patient will need hospitalization for at least 2 midnights for elevated LFTs, dizziness acute lactic acidosis IV fluids, blood workup monitor and evaluation by subspecialty. Quality Stroke Does the patient have a stroke diagnosis?: No VTE Prior VTE?: No VTE Risk Level:: Medical - moderate - high VTE Device Contraindication: N/A - Device Ordered VTE Drug Contraindication: Treatment Not Indicated
[2025-06-06 01:12] LABS: Reflex Lactate? Lactic Acid Added
[2025-06-06 01:23] LABS: Gamma Glutamyl Transpeptidase 592 U/L (11-51)
--- NOTE | 2025-06-06 01:39 | PC.NURSE ---
fluids finished at 0136. MD Eduardo told this nurse via tiger text to wait to draw Lactic acid until fluids complete. sandwich maker aware and in room at 0137.
[2025-06-06 02:04] LABS: ~Lactic Acid-LAB USE ONLY 3.6 mmol/L (0.5-2.0)
[2025-06-06 02:10] LABS: Cancel Lactic Acid Canceled
[2025-06-06 05:52] LABS: Hematocrit 29.0 % (42.0-52.0); Hemoglobin 10.3 g/dl (14.0-18.0); Imm Gran Abs Auto 0.07 X10*3/uL (0.00-0.03); Imm Gran Pct Auto 1.1 % (0.0-0.4); Lymphocytes Absolute Auto 1.7 X10*3/uL (1.2-4.9); MANUAL DIFF FLAG SCAN; Mean Corpuscular HGB Conc 35.5 g/dl (31.0-36.0); Mean Corpuscular Hemoglobin 38.4 pg (27.0-33.0); Mean Corpuscular Volume 108.2 fL (80.0-98.0); NRBC Abs Auto 0.020 X10*3/uL (0.0-0.012); NRBC Pct Auto 0.3 /100WBC (0.0-0.2); PLT CLUMP 1; Red Blood Count 2.68 X10*6/uL (4.60-5.80); Reticulocytes Absolute 0.084 X10*6/uL (0.026-0.095); SCAN SMEAR FLAG 1
[2025-06-06 05:57] LABS: INTERNATIONAL NORM RATIO 1.1 (0.9-1.1); Prothrombin Time 13.1 SEC (10.9-12.4)
[2025-06-06 06:01] LABS: Alanine Aminotransferase 64 U/L (0-40); Albumin Level 3.5 g/dL (3.5-5.0); Alkaline Phosphatase 147 U/L (39-117); Anion Gap 14 (12-20); Aspartate Amino Transferase 144 U/L (5-37); Blood Urea Nitrogen 7 mg/dL (9-16); Calcium 8.7 mg/dL (8.4-10.2); Carbon Dioxide 23 mmol/L (22-29); Chloride 102 mmol/L (96-108); Creatinine Clr Calc Pharmacy 67.0; Estimated Glomerular Filt Rate > 60; Magnesium 1.8 mg/dL (1.6-2.6); Potassium 3.2 mmol/L (3.3-5.1); Sodium 136 mmol/L (135-145); Total Protein 6.9 g/dL (6.5-8.0)
[2025-06-06 06:07] LABS: Iron 82 mcg/dL (45-160); Percent Iron Saturation 65 % (15-50); Total Iron Binding Capacity 127 mcg/dL (228-428); Unsaturated Iron Binding 45 ug/dL
[2025-06-06 06:14] LABS: Platelet Count 129 X10*3/uL (160-400); White Blood Count 6.4 X10*3/uL (4.8-10.8)
[2025-06-06 06:35] LABS: Folate 6.8 ng/mL (> or = 4.0); Vitamin B12 351 pg/mL (200-900)
[2025-06-06 07:08] LABS: Ferritin 2311 ng/mL (20-250)
--- NOTE | 2025-06-06 08:34 | HO.PM.IMPN ---
Subjective Subjective Date of Service: 06/06/25 Interval History: uti Review of Systems seems feeling similar seems generlaised weak Review of Systems: Yes all other systems are reviewed and are negative Physical Exam Exam: Exam: Appearance: Alert.? Oriented X3.? cvs: [id number], [id number] res: clear to auscultation ,no rhonchii or wheezing abd: no rebound or guarding ,nt, bs present. ext pulses present , no cyanosis . neuro: axo3 , nonfocal. Vital Signs: Vital Signs: Last Vital Signs Temp 98.0 F 06/06/25 05:28 Pulse 88 06/06/25 08:31 Resp 13 06/06/25 08:31 BP 124/73 06/06/25 08:31 Pulse Ox 96 06/06/25 08:31 O2 Del Method Room Air 06/06/25 08:31 BMI result Body Mass Index 26.6 Objective Data Active Medications Acetaminophen (Acetaminophen 325 Mg Tablet) 650 mg PO Q6H PRN PRN Reason: Pain, Mild 1-3,fever,headache Calcium Carbonate (Calcium Carbonate 750 Mg Tab.Chew) 750 mg PO Q4H PRN PRN Reason: Heartburn Ceftriaxone Sodium (Ceftriaxone Sodium 1 Gm Vial) 1 gm IVPUSH Q24H CHEY Folic Acid (Folic Acid 1 Mg Tablet) 1 mg PO DAILY CHEY Magnesium Hydroxide (Milk Of Magnesia 30 Ml Oral.Susp) 30 ml PO DAILY PRN PRN Reason: Constipation Magnesium Oxide (Magnesium Oxide 400 Mg Tablet) 400 mg PO BIDPC CHEY Melatonin (Melatonin 3 Mg Tablet) 6 mg PO BEDTIME PRN PRN Reason: Insomnia Multivitamins/Vitamin C (Multivitamin Tablet) 1 tab PO DAILY CHEY Sodium Chloride (0.9 % Sodium Chloride Flush 3 Ml Syringe) 3 ml IVFLUSH QSHIFT CHEY Thiamine HCl (Thiamine Hcl 100 Mg Tablet) 100 mg PO DAILY CHEY Labs 06/06/25 05:35 06/06/25 05:35 Labs: Laboratory Results - last 24 hr 06/05/25 06/05/25 06/05/25 20:42 22:15 23:07 MCV 109.8 H MCH 38.9 H MCHC 35.4 RDW 15.3 Plt Count 140 L MPV 10.3 Immature Gran % (Auto) 1.3 H Neut % (Auto) 75.9 H Lymph % (Auto) 13.1 L [place] % (Auto) 9.3 Eos % (Auto) 0.2 Baso % (Auto) 0.2 Lymph # (Auto) 0.8 L [place] # (Auto) 0.6 Eos # (Auto) 0.0 Baso # (Auto) 0.0 Abs Immat Gran (auto) 0.08 H Absolute Neuts (auto) 4.6 Absolute Nucleated RBC 0.020 H Nucleated RBC % (auto) 0.3 H Smear Tech's Comments Absolute Retic Percent Retic Immature Retic Fraction Retic Hgb Equivalent Hold Purple Top PT INR Anion Gap 17 Estim Creat Clear Calc 58.0 Estimated GFR > 60 Random Glucose 202 H Lactic Acid 3.9 H* Lactic Acid F/U @ 2Hr Calcium 8.6 Magnesium 1.4 L* Iron TIBC % Saturation Unsat Iron Binding Ferritin Total Bilirubin 1.9 H Direct Bilirubin 1.2 H GGT 592 H AST 157 H ALT 65 H Alkaline Phosphatase 141 H Total Protein 6.2 L Albumin 3.4 L Lipase 161 H Vitamin B12 25-OH Vitamin D Total Folate Urine Color PINK Urine Appearance Cloudy Urine pH 6.0 Ur Specific [place] <= 1.005 Urine Protein 100 (2+) H Urine Glucose (UA) Negative Urine Ketones Negative Urine Blood Large (3+) H Urine Nitrite Positive H Ur Leukocyte Esterase Moderate (2+) H Urine RBC >20 H Urine WBC >50 H Ur Squamous Epith Cells 0-2 Urine Bacteria 4+ Hyaline Casts 0-2 Ethyl Alcohol < 10 06/06/25 06/06/25 06/06/25 01:42 05:35 05:35 MCV 108.2 H MCH 38.4 H MCHC 35.5 RDW 15.4 Plt Count 129 L MPV 10.7 Immature Gran % (Auto) 1.1 H Neut % (Auto) 63.3 Lymph % (Auto) 26.4 [place] % (Auto) 8.4 Eos % (Auto) 0.3 Baso % (Auto) 0.5 Lymph # (Auto) 1.7 [place] # (Auto) 0.5 Eos # (Auto) 0.0 Baso # (Auto) 0.0 Abs Immat Gran (auto) 0.07 H Absolute Neuts (auto) 4.1 Absolute Nucleated RBC 0.020 H Nucleated RBC % (auto) 0.3 H Smear Tech's Comments VERIFIED Absolute Retic 0.084 Cancelled Percent Retic 3.1 H Immature Retic Fraction Retic Hgb Equivalent Hold Purple Top PT INR Anion Gap Estim Creat Clear Calc Estimated GFR Random Glucose Lactic Acid Lactic Acid F/U @ 2Hr 3.6 H* Calcium Magnesium Iron TIBC % Saturation Unsat Iron Binding Ferritin Total Bilirubin Direct Bilirubin GGT AST ALT Alkaline Phosphatase Total Protein Albumin Lipase Vitamin B12 25-OH Vitamin D Total Folate Urine Color Urine Appearance Urine pH Ur Specific [place] Urine Protein Urine Glucose (UA) Urine Ketones Urine Blood Urine Nitrite Ur Leukocyte Esterase Urine RBC Urine WBC Ur Squamous Epith Cells Urine Bacteria Hyaline Casts Ethyl Alcohol 06/06/25 06/06/25 06/06/25 05:35 05:35 05:35 MCV MCH MCHC RDW Plt Count MPV Immature Gran % (Auto) Neut % (Auto) Lymph % (Auto) [place] % (Auto) Eos % (Auto) Baso % (Auto) Lymph # (Auto) [place] # (Auto) Eos # (Auto) Baso # (Auto) Abs Immat Gran (auto) Absolute Neuts (auto) Absolute Nucleated RBC Nucleated RBC % (auto) Smear Tech's Comments Absolute Retic Percent Retic Cancelled Immature Retic Fraction 28.0 H Cancelled Retic Hgb Equivalent 35.6 H Cancelled Hold Purple Top SEE NOTE PT 13.1 H INR 1.1 Anion Gap 14 Estim Creat Clear Calc 67.0 Estimated GFR > 60 Random Glucose 116 H Lactic Acid Lactic Acid F/U @ 2Hr Calcium 8.7 Magnesium 1.8 Iron 82 TIBC 127 L % Saturation 65 H Unsat Iron Binding 45 Ferritin 2311 H Total Bilirubin 1.6 H Direct Bilirubin GGT AST 144 H ALT 64 H Alkaline Phosphatase 147 H Total Protein 6.9 Albumin 3.5 Lipase Vitamin B12 351 25-OH Vitamin D Total 10.2 L Folate 6.8 Urine Color Urine Appearance Urine pH Ur Specific [place] Urine Protein Urine Glucose (UA) Urine Ketones Urine Blood Urine Nitrite Ur Leukocyte Esterase Urine RBC Urine WBC Ur Squamous Epith Cells Urine Bacteria Hyaline Casts Ethyl Alcohol Assessment and Plan (1) Abnormal LFTs: Status: Acute (2) Hypomagnesemia: Status: Acute (3) Acute UTI: Status: Acute Plan Jus Beatty is a 69 y/l man presents with: Elevated LFTs likely secondary to severe hepatic steatosis due to alcohol abuse. lft;s improivng inr fine ggt elevated Patient advised to avoid alcohol consumption. Continue to monitor. GI consult. Acute lactic acidosis. Doubt severe sepsis. Likely secondary to above/liver disease. Received fluid, lactic acid improving. No further lactic acid trending unless clinical situation changes. Alcohol use disorder. No sign of withdrawal, [facility] protocol. Continue thiamine, folic acid and multivitamins. Hypomagnesemia, secondary to above. Repleted and resolved. Urinary tract infection. Continue ceftriaxone 1 g IV daily. Urine culture /blood culture pending. Macrocytic anemia. Anemia workup. Continue to monitor. Dizziness. Fall precautions. Check TTE. check orthostasis ambulation Lower extremities weakness. No back pain or numbness. Fall precautions. Check vitamin-D. Physiotherapy. Gout. Continue allopurinol. Remote history of hypertension. No longer on metoprolol. BP is 101/55 tonight. Continue to monitor BP. Code status: Full DVT prophylaxis: SCDs ongoing need for hospitalization for elevated LFTs, dizziness acute lactic acidosis IV fluids, blood workup monitor and evaluation by subspecialty. Quality Stroke Does the patient have a stroke diagnosis?: No VTE Prior VTE?: No VTE Risk Level:: Medical - moderate - high VTE Device Contraindication: N/A - Device Ordered VTE Drug Contraindication: Treatment Not Indicated
[2025-06-06] MEDS: 0.9 % Sodium Chloride Flush 3 ML SYRINGE IVFLUSH ×3 (08:35→19:49)
--- NOTE | 2025-06-06 09:03 | PHA.MEDREC ---
Pharmacy Consult ? Medication Reconciliation Pharmacy has completed the medication reconciliation. Spoke with patient at bedside, he states he only take Allopurinol daily, ibuprofen as needed, and a men's over 50 multivitamin.
--- NOTE | 2025-06-06 09:19 | PC.NURSE ---
Pt resting comfortably in bed, A&Ox4, can be forgetful. Denies pain. Reports generalized weakness. VSS. Breathing unlabored, skin p/w/d. Medicated as charted. Pt set up to eat breakfast.
--- NOTE | 2025-06-06 11:20 | CONS_ITS ---
DATE OF SERVICE: 06/06/2025 REFERRING PHYSICIAN: Dr. Jayce Fernandez HISTORY OF PRESENT ILLNESS: The patient is a pleasant 69-year-old [place] of [place], who was admitted to the hospital with weakness and elevated liver function tests. He drinks alcohol on a regular basis, consuming approximately 1/2 gallon of vodka every 5 days. Liver function tests in the emergency department were elevated in a pattern consistent with alcoholic hepatitis with an AST of 157 and an ALT of 65. Bilirubin was slightly elevated at 1.9. Imaging obtained of the abdomen showed severe hepatic steatosis. The patient denies any history of jaundice, pruritus, or liver problems. He has not established with a local doctor since he moved here from [facility]. He also had a mild elevation of his serum lipase at 161, but imaging of his pancreas was unremarkable. He has no complaints of abdominal pain at this time. PAST MEDICAL HISTORY: 1. Gout. 2. Hypertension. CURRENT MEDICATIONS: His current medication list is reviewed in the chart. ALLERGIES: THERE ARE NONE REPORTED. FAMILY HISTORY: This is negative for GI malignancy. SOCIAL HISTORY: There is no current tobacco use. Alcohol use is as noted above. REVIEW OF SYSTEMS: SKIN: No pruritus. HEENT: Negative. CARDIOPULMONARY: No shortness of breath or chest pain. GASTROINTESTINAL: As above. GENITOURINARY: Positive for urinary urgency. NEUROPSYCHIATRIC: Negative. PHYSICAL EXAMINATION: GENERAL: Shows a pleasant male, lying comfortably in bed. VITAL SIGNS: Stable. SKIN: Anicteric. HEENT: Shows no scleral icterus. NECK: Without lymphadenopathy or thyromegaly. LUNGS: Clear. HEART: Shows a regular rate and rhythm. S1, S2. No murmur. ABDOMEN: Soft without focal masses or tenderness. Bowel sounds are present. No organomegaly is noted. EXTREMITIES: Without edema. LABORATORY DATA AND IMAGING STUDIES: Reviewed. IMPRESSION: Elevated liver function tests. This is consistent with alcoholic hepatitis based on his liver function test elevation pattern and his history of alcohol consumption, I discussed with him the need to avoid alcohol. He understands this. I would recommend monitoring his liver function tests based on his liver test elevations at this time. I do not think he needs intravenous steroids. Thanks for asking me to see him. I will follow him in the hospital with you. MD ASMITA Hedrick/RUTHY / [phone]
[2025-06-06 15:24] LABS: Cancel Lactic Acid Canceled
[2025-06-06] MEDS: Milk of Magnesia 30 ML ORAL.SUSP PO (20:12)
[2025-06-07] VITALS (18 sets, daily range): BP systolic 85–126; BP diastolic 53–86; PULSE 83–112; RESP 16–18; TEMP 36.3–37.3; O2SAT 98
--- NOTE | 2025-06-07 09:15 | MHC.CM.PN ---
IMM delivered. Patient lives in a home w/ adult son. Functionally independent. Denies use of DME or services. No PCP. [place] in w/ [place] of state about a year ago. Had a PCP in [place], but has not established care w/ new local PCP. G brochure provided. Reports he has an HCP naming his son as HCA. Copy requested. DP: Home w/ family support, son to transport. CM will continue to follow.
--- NOTE | 2025-06-07 09:45 | P.PNGI_ITS ---
Subjective Subjective Date of Service: 07/08/25 Interval History: no abd pain tolerating diet Critical Care Time (minutes): 0 Physical Exam 2 Vital Signs: Vital Signs: Last Vital Signs Temp 98.0 F 06/07/25 08:00 Pulse 108 H 06/07/25 08:10 Resp 18 06/07/25 08:00 BP 106/72 06/07/25 08:10 Pulse Ox 98 06/07/25 08:00 O2 Del Method Room Air 06/07/25 08:00 BMI result Body Mass Index 32.0 GI: Other: abdomen is soft and nontender Objective Data Labs 06/06/25 05:35 06/06/25 05:35 Labs: Laboratory Results - last 24 hr 06/06/25 13:57 Lactic Acid 2.4 H* Microbiology Microbiology Results: Microbiology 06/05/25 Unknown Urine clean catch - Clean Catch Midstream Urine Culture - Final 06/05/25 23:07 Blood - Venous Blood Culture - Preliminary No growth after 24 hours. 06/05/25 23:07 Blood - Venous Blood Culture - Preliminary No growth after 24 hours. Procedures Date of Service Date of Service: 06/07/25 Progress Note: A&P Assessment and plan (1) Abnormal LFTs: Status: Acute Assessment and Plan: alcoholic liver disease, advised to avoid alcohol f/u labs pending. us ordered to eval for gallstones. Time Spent With Patient Time: Total time managing care of this patient today ____ minutes. Quality Stroke Does the patient have a stroke diagnosis?: No VTE Prior VTE?: No VTE Risk Level:: Medical - moderate - high VTE Device Contraindication: N/A - Device Ordered VTE Drug Contraindication: Treatment Not Indicated
[2025-06-07 10:22] LABS: Potassium 3.8 mmol/L (3.3-5.1)
--- NOTE | 2025-06-07 11:57 | PC.NURSE ---
md informed of low bp and + ortho results
--- NOTE | 2025-06-07 14:58 | HO.PM.IMPN ---
Subjective Subjective Date of Service: 06/07/25 Interval History: possible uti,orthostatic hypotension Review of Systems seems improivng has dizziness with minimal actvity Review of Systems: Yes all other systems are reviewed and are negative Physical Exam Exam: Exam: Appearance: Alert.? Oriented X3.? cvs: [id number], [id number] . res: clear to auscultation ,no rhonchii or wheezing abd: no rebound or guarding ,nt, bs present. ext pulses present , no cyanosis . neuro: axo3 , nonfocal. Vital Signs: Vital Signs: Last Vital Signs Temp 97.8 F 06/07/25 11:40 Pulse 94 06/07/25 12:10 Resp 18 06/07/25 11:40 BP 100/70 06/07/25 12:45 Pulse Ox 98 06/07/25 11:40 O2 Del Method Room Air 06/07/25 11:40 BMI result Body Mass Index 32.0 Objective Data Active Medications Acetaminophen (Acetaminophen 325 Mg Tablet) 650 mg PO Q6H PRN PRN Reason: Pain, Mild 1-3,fever,headache Allopurinol (Allopurinol 100 Mg Tablet) 100 mg PO DAILY [facility] Last Admin: 06/07/25 09:31 Dose: 100 mg Documented By: SHARDA Calcium Carbonate (Calcium Carbonate 750 Mg Tab.Chew) 750 mg PO Q4H PRN PRN Reason: Heartburn Ceftriaxone Sodium (Ceftriaxone Sodium 1 Gm Vial) 1 gm IVPUSH Q24H [facility] Last Admin: 06/06/25 19:49 Dose: 1 gm Documented By: DELMIS Docusate Sodium (Docusate Sodium 100 Mg Capsule) 100 mg PO BID [facility] Last Admin: 06/07/25 10:01 Dose: 100 mg Documented By: SHARDA Folic Acid (Folic Acid 1 Mg Tablet) 1 mg PO DAILY [facility] Last Admin: 06/07/25 09:31 Dose: 1 mg Documented By: SHARDA Sodium Chloride (Ns) 1,000 mls @ 100 mls/hr IVCONT .Q10H [facility] Last Admin: 06/07/25 10:01 Dose: 100 mls/hr Documented By: SHARDA Ibuprofen (Ibuprofen 400 Mg Tablet) 400 mg PO Q6H PRN PRN Reason: Pain, Severe (Pain Scale 7-10) Last Admin: 06/07/25 10:01 Dose: 400 mg Documented By: SHARDA Magnesium Hydroxide (Milk Of Magnesia 30 Ml Oral.Susp) 30 ml PO DAILY PRN PRN Reason: Constipation Last Admin: 06/06/25 20:12 Dose: 30 ml Documented By: DELMIS Magnesium Oxide (Magnesium Oxide 400 Mg Tablet) 400 mg PO BIDPC [facility] Last Admin: 06/07/25 09:31 Dose: 400 mg Documented By: SHARDA Melatonin (Melatonin 3 Mg Tablet) 6 mg PO BEDTIME PRN PRN Reason: Insomnia Multivitamins/Vitamin C (Multivitamin Tablet) 1 tab PO DAILY [facility] Last Admin: 06/07/25 09:31 Dose: 1 tab Documented By: SHARDA Polyethylene Glycol (Polyethylene Glycol 3350 17 Gm Powd.Pack) 17 gm PO DAILY [facility] Last Admin: 06/07/25 10:01 Dose: 17 gm Documented By: SHARDA Sodium Chloride (0.9 % Sodium Chloride Flush 3 Ml Syringe) 3 ml IVFLUSH QSHIFT [facility] Last Admin: 06/07/25 12:44 Dose: Not Given Documented By: SHARDA Non-Admin Reason: Previously Administered Thiamine HCl (Thiamine Hcl 100 Mg Tablet) 100 mg PO DAILY [facility] Last Admin: 06/07/25 09:31 Dose: 100 mg Documented By: SHARDA Vitamin D (Cholecalciferol (Vitamin D3) 25 Mcg Tablet) 25 mcg PO DAILY [facility] Last Admin: 06/07/25 09:31 Dose: 25 mcg Documented By: SHARDA Labs 06/06/25 05:35 06/07/25 09:07 Microbiology Microbiology Results: Microbiology 06/05/25 Unknown Urine Culture - Final Urine clean catch - Clean Catch Midstream 06/05/25 23:07 Blood Culture - Preliminary Blood - Venous No growth after 24 hours. 06/05/25 23:07 Blood Culture - Preliminary Blood - Venous No growth after 24 hours. Assessment and Plan (1) Orthostasis: Status: Acute Plan 69 y/l man presents with: Elevated LFTs likely secondary to severe hepatic steatosis due to alcohol abuse. lft;s improivng inr fine ggt elevated hepatitis profile pending Patient advised to avoid alcohol consumption. Continue to monitor. GI consult-likely due to alcoholic hepatitis ,no steriod need, patient was strongly advised to abstain from alcohol.. Acute lactic acidosis. Doubt severe sepsis. Likely secondary to above/liver disease. Received fluid, lactic acid improving. No further lactic acid trending unless clinical situation changes. Alcohol use disorder. No sign of withdrawal, [facility] protocol. Continue thiamine, folic acid and multivitamins. Hypomagnesemia, secondary to above. Repleted and resolved. Urinary tract infection. Continue ceftriaxone 1 g IV daily. Urine culture /blood culture pending. Macrocytic anemia. Anemia workup. Continue to monitor. Dizziness:Fall precautions. Check TTE. has orthostasis ambulation-added Eugenio stocking, IV fluids. Lower extremities weakness. No back pain or numbness. Fall precautions. Check vitamin-D. Physiotherapy. Gout. Continue allopurinol. Remote history of hypertension. No longer on metoprolol. Monitor blood pressure closely Code status: Full DVT prophylaxis: SCDs ongoing need for hospitalization for elevated LFTs, dizziness acute lactic acidosis IV fluids, blood workup monitor and evaluation by subspecialty Quality Stroke Does the patient have a stroke diagnosis?: No VTE Prior VTE?: No VTE Risk Level:: Medical - moderate - high VTE Device Contraindication: N/A - Device Ordered VTE Drug Contraindication: Treatment Not Indicated
[2025-06-07] MEDS: 0.9 % Sodium Chloride Flush 3 ML SYRINGE IVFLUSH (20:54)
[2025-06-08] VITALS (17 sets, daily range): BP systolic 99–136; BP diastolic 58–81; PULSE 73–102; RESP 16–18; TEMP 36.2–37.7; O2SAT 95–98
[2025-06-08 04:12] LABS: HBS Num1 0.00 mIU/mL (0-7.99); HBc Num1 0.09 S/CO (0.00-0.79); HBsAGNum1 0.41 S/CO (0.00-0.99); Hepatitis A Antibody IgM 0.24 Index (0-0.79); Hepatitis B Surface Antigen Negative (Negative); ~HepC Num1 0.11 S/CO (0.00-0.79); ~Hepatitis A Antibody IgM Nonreactive (Nonreactive); ~Hepatitis B Surface Antibody NONREACTIVE (Nonreactive); ~Hepatitis C Antibody Nonreactive (Nonreactive)
--- NOTE | 2025-06-08 07:00 | CA_ITS ---
Transthoracic Echocardiogram Patient (Last, First, Middle): Jus Beatty, Gender: M Date of : 1955 Age: 69 Procedure Date: 06/08/2025 Procedure Type: Transthoracic Echocardiogram [place] [facility] [place] Height: 175.26 cm Weight: 97.98 kg BSA: 2.13 m2 Heart Rate: 76 bpm BP: 106 / 71 mmHg Digital Marketing Strategist: Referring MD: Kash Fernandez MD Makeup Sales Consultant: Romeo Beltran MD Symptoms: Dizziness Study Quality: Adequate ECG Rhythm: Sinus Conclusions: - 1. Hyperdynamic LV EF of greater than 70% with mild LVH with impaired relaxation filling pattern 2. Calcific aortic valve changes noted with normal cardiac valvular Dopplers 3. Mildly dilated ascending aorta at 3.7 cm 4. No gross pericardial effusion Findings Left Ventricle Normal left ventricular cavity size. There is mildly increased left ventricular wall thickness. The left ventricular systolic function is hyperdynamic. The visually estimated ejection fraction is >70%. Spectral Doppler is indicative of an impaired relaxation filling pattern. E/E prime ratio is between 8 and 15 consistent with indeterminate filling pressures. Right Ventricle Normal right ventricular cavity size and systolic function. Atria Both atria are normal in size. There is lipomatous hypertrophy of the interatrial septum. There is no evidence of interatrial shunt. Aortic Valve There is mild calcification of the aortic valve. There is no aortic valve stenosis. There is no aortic valve regurgitation. Mitral Valve Likely normal mitral valve structure and function. There is no mitral valve regurgitation. There is no mitral valve stenosis. Pulmonic Valve The pulmonic valve was not well visualized. Tricuspid Valve Likely normal tricuspid valve structure and function. Tricuspid regurgitation envelope is inadequate for calculation of right ventricular systolic pressure. Normal right atrial pressure. Great Vessels The pulmonary artery was not well visualized. There is mild dilatation of the ascending aorta measuring 3.70 cm. Venous The inferior vena cava is normal in size and collapses greater than 50% with inspiration. Pericardium/Pleural There is no evidence of pericardial effusion. Prior Study Comparison No prior study available for comparison. Measurements 2D Linear Measurements IVSd: 1.34 0.6-0.9/0.6-1.0 cm LVIDd: 4.12 3.9-5.3/4.2-5.9 cm LVIDd Index: 1.93 2.4-3.2/2.2-3.1 cm/m2 LVIDs: 2.62 2.0-3.6 cm LVPWd: 1.35 0.7-1.1 cm LA Diam: 3.90 2.7-3.8/3.0-4.0 cm LAIDs Index: 1.83 1.5-2.3 cm/m2 LV Mass: 255.72 67-162/88-224 g LV Mass Index: 120.06 43-95/49-115 g/m2 LVOT Diam: 2.20 3.0+(-)1.3 cm 2D Systolic Function EF 4C: 78.90 >55% EF 2C: 55.30 >55% EF BiP: 71.40 >55% Mitral Valve MV Pk E: 0.85 MV PK A: 0.77 MV Decel Time: 193.00 E/A: 1.10 E'Lateral: 10.80 E'Medial: 6.20 E/E' Med: 13.70 E/E' Lat: 7.90 PHT: 57.00 MVA PHT: 3.86 Decel [place]: 4.41 Aortic Valve AoV Pk [place]: 1.80 AoV Mn [place]: 1.14 AoV VTI: 0.41 AoV Pk Grad: 13.00 Aov Mn Grad: 7.00 CRISTIANO Cont.VTI: 2.23 LVOT LVOT Pk [place]: 1.09 LVOT Mn [place]: 0.71 LVOT VTI: 0.24 LVOT Pk Grad: 5.00 LVOT Mn Grad: 2.00 LVOT Diam: 2.20 LVOT Area: 3.80 Diastolic Function MV Pk E: 0.85 MV Pk A: 0.77 E/A: 1.10 E'Medial: 6.20 E/E' Med: 13.70 E' Laterial: 10.80 E/E' Lat: 7.90 Right Ventricle TAPSE (mm): 19.80 TVS' [place]: 12.10 Tricuspid Valve TR Pk [place]: 2.44 TR Pk Grad: 24.00 Great Vessels Aorta Sinus of Valsalva: 3.20 2.0-3.5 cm Ao Asc: 3.70 2.1-3.4 cm Pulmonary Valve PV Pk [place]: 0.96 Peak PV Grad: 4.00 Updated in Other Vendor System with Status of Final Romeo Beltran MD electronically signed on 06/08/2025 4:08:32 PM with status of Final
[2025-06-08 07:17] LABS: Glucose, Whole Blood 95 mg/dL (60-115)
[2025-06-08 08:44] LABS: Chlamydia pneumoniae PCR Not Detected (Not Detect.); Coronavirus 229E PCR Not Detected (Not Detect.); Coronavirus HKU1 PCR Not Detected (Not Detect.); Coronavirus NL63 PCR Not Detected (Not Detect.); Coronavirus OC43 PCR Not Detected (Not Detect.); RSV PCR Not Detected (Not Detect.); Rhino/Enterovirus PCR Not Detected (Not Detect.)
[2025-06-08] MEDS: 0.9 % Sodium Chloride Flush 3 ML SYRINGE IVFLUSH ×2 (08:46→20:32)
[2025-06-08 09:59] LABS: Influenza A H1 PCR Not Detected (Not Detect.); Influenza A H1-2009 PCR Not Detected (Not Detect.); Influenza A H3 PCR Not Detected (Not Detect.); SARS-CoV-2 PCR Not Detected (Not Detect.)
--- NOTE | 2025-06-08 10:33 | MHC.CM.PN ---
Per ROUNDS discussion, Patient is not yet medically cleared for dc (Orthostatic Hypotension); PT is recommending home with family support and CM will continue to follow.
[2025-06-08 11:13] LABS: Glucose, Whole Blood 153 mg/dL (60-115)
--- NOTE | 2025-06-08 14:57 | HO.PM.IMPN ---
Subjective Subjective Date of Service: 06/08/25 Interval History: Gets dizzy with standing as well as tachycardic Review of Systems Denies any chest pain or shortness of breath Physical Exam Exam: Exam: Appearance: Alert.? Oriented X3.? cvs: [id number], [id number] res: clear to auscultation ,no rhonchii or wheezing abd: no rebound or guarding ,nt, bs present. ext pulses present , no cyanosis . neuro: axo3 , nonfocal. Vital Signs: Vital Signs: Last Vital Signs Temp 97.8 F 06/08/25 11:42 Pulse 77 06/08/25 11:42 Resp 16 06/08/25 11:42 BP 120/73 06/08/25 11:42 Pulse Ox 95 06/08/25 11:42 O2 Del Method Room Air 06/08/25 11:42 BMI result Body Mass Index 32.0 Objective Data Active Medications Acetaminophen (Acetaminophen 325 Mg Tablet) 650 mg PO Q6H PRN PRN Reason: Pain, Mild 1-3,fever,headache Last Admin: 06/07/25 20:54 Dose: 650 mg Documented By: DELMIS Allopurinol (Allopurinol 100 Mg Tablet) 100 mg PO DAILY [facility] Last Admin: 06/08/25 08:46 Dose: 100 mg Documented By: PARIS Calcium Carbonate (Calcium Carbonate 750 Mg Tab.Chew) 750 mg PO Q4H PRN PRN Reason: Heartburn Ceftriaxone Sodium (Ceftriaxone Sodium 1 Gm Vial) 1 gm IVPUSH Q24H [facility] Last Admin: 06/07/25 20:54 Dose: 1 gm Documented By: DELMIS Docusate Sodium (Docusate Sodium 100 Mg Capsule) 100 mg PO BID [facility] Last Admin: 06/08/25 08:46 Dose: 100 mg Documented By: PARIS Folic Acid (Folic Acid 1 Mg Tablet) 1 mg PO DAILY [facility] Last Admin: 06/08/25 08:46 Dose: 1 mg Documented By: PARIS Sodium Chloride (Ns) 1,000 mls @ 100 mls/hr IVCONT .Q10H [facility] Last Admin: 06/08/25 06:10 Dose: 100 mls/hr Documented By: DELMIS Ibuprofen (Ibuprofen 400 Mg Tablet) 400 mg PO Q6H PRN PRN Reason: Pain, Severe (Pain Scale 7-10) Last Admin: 06/07/25 10:01 Dose: 400 mg Documented By: SHARDA Magnesium Hydroxide (Milk Of Magnesia 30 Ml Oral.Susp) 30 ml PO DAILY PRN PRN Reason: Constipation Last Admin: 06/06/25 20:12 Dose: 30 ml Documented By: DELMIS Magnesium Oxide (Magnesium Oxide 400 Mg Tablet) 400 mg PO BIDPC [facility] Last Admin: 06/08/25 08:46 Dose: 400 mg Documented By: PARIS Melatonin (Melatonin 3 Mg Tablet) 6 mg PO BEDTIME PRN PRN Reason: Insomnia Midodrine (Midodrine Hcl 2.5 Mg Tablet) 2.5 mg PO TID [facility] Last Admin: 06/08/25 14:31 Dose: 2.5 mg Documented By: PARIS Multivitamins/Vitamin C (Multivitamin Tablet) 1 tab PO DAILY [facility] Last Admin: 06/08/25 08:46 Dose: 1 tab Documented By: PARIS Polyethylene Glycol (Polyethylene Glycol 3350 17 Gm Powd.Pack) 17 gm PO DAILY [facility] Last Admin: 06/08/25 08:46 Dose: 17 gm Documented By: PARIS Sodium Chloride (0.9 % Sodium Chloride Flush 3 Ml Syringe) 3 ml IVFLUSH QSHIFT [facility] Last Admin: 06/08/25 14:33 Dose: Not Given Documented By: PARIS Non-Admin Reason: IV Running Thiamine HCl (Thiamine Hcl 100 Mg Tablet) 100 mg PO DAILY [facility] Last Admin: 06/08/25 08:46 Dose: 100 mg Documented By: PARIS Vitamin D (Cholecalciferol (Vitamin D3) 25 Mcg Tablet) 25 mcg PO DAILY [facility] Last Admin: 06/08/25 08:46 Dose: 25 mcg Documented By: PARIS Labs 06/06/25 05:35 06/07/25 09:07 Labs: Laboratory Results - last 24 hr 06/06/25 06/07/25 06/08/25 05:35 16:52 07:13 POC Glucose 95 Respiratory Panel [place] See Note Adenovirus (Rapid PCR) Not Detected B.pert (TEM-PCR) Not Detected B.parapertussis DNA PCR Not Detected C. pneumoniae DNA (PCR) Not Detected Coronavirus OC43 (PCR) Not Detected Coronavirus HKU1 (PCR) Not Detected Coronavirus 229E (PCR) Not Detected Coronavirus NL63 (PCR) Not Detected Hepatitis A IgM Ab Nonreactive Hep Bs Antigen Negative Hep Bs Antibody NONREACTIVE Hep B Core Total Ab Nonreactive Hepatitis C Ab (EIA) Nonreactive Human Metapneumovir PCR Not Detected Influenza A (RT-PCR) Not Detected Influenza A (H1) PCR Not Detected Influ A (H1/) PCR Not Detected Influenza A (H3) PCR Not Detected Influenza B (RT-PCR) Not Detected M. pneumoniae (PCR) Not Detected Parainfluenza 1 (PCR) Not Detected Parainfluenza 2 (PCR) Not Detected Parainfluenza 3 (PCR) Not Detected Parainfluenza 4 (PCR) Not Detected RSV (PCR) Not Detected Entero/Rhino (PCR) Not Detected SARS-CoV-2 RNA (RT-PCR) Not Detected 06/08/25 11:03 POC Glucose 153 H Respiratory Panel [place] Adenovirus (Rapid PCR) B.pert (TEM-PCR) B.parapertussis DNA PCR C. pneumoniae DNA (PCR) Coronavirus OC43 (PCR) Coronavirus HKU1 (PCR) Coronavirus 229E (PCR) Coronavirus NL63 (PCR) Hepatitis A IgM Ab Hep Bs Antigen Hep Bs Antibody Hep B Core Total Ab Hepatitis C Ab (EIA) Human Metapneumovir PCR Influenza A (RT-PCR) Influenza A (H1) PCR Influ A (H1/09) PCR Influenza A (H3) PCR Influenza B (RT-PCR) M. pneumoniae (PCR) Parainfluenza 1 (PCR) Parainfluenza 2 (PCR) Parainfluenza 3 (PCR) Parainfluenza 4 (PCR) RSV (PCR) Entero/Rhino (PCR) SARS-CoV-2 RNA (RT-PCR) Microbiology Microbiology Results: Microbiology 06/05/25 23:07 Blood Culture - Preliminary Blood - Venous No growth after 48 hours. 06/05/25 23:07 Blood Culture - Preliminary Blood - Venous No growth after 48 hours. Assessment and Plan (1) Orthostasis: Status: Acute Plan 69 y/l man presents with: Elevated LFTs likely secondary to severe hepatic steatosis due to alcohol abuse. lft;s improivng inr fine ggt elevated hepatitis profile pending Patient advised to avoid alcohol consumption. Continue to monitor. GI consult-likely due to alcoholic hepatitis ,no steriod need, patient was strongly advised to abstain from alcohol.. Acute lactic acidosis. Doubt severe sepsis. Likely secondary to above/liver disease. Received fluid, lactic acid improving. No further lactic acid trending unless clinical situation changes. Alcohol use disorder. No sign of withdrawal, [facility] protocol. Continue thiamine, folic acid and multivitamins. Hypomagnesemia, secondary to above. Repleted and resolved. Urinary tract infection. Continue ceftriaxone 1 g IV daily. Urine culture /blood culture pending. Macrocytic anemia. Anemia workup. Continue to monitor. Dizziness:Fall precautions. Check TTE. has orthostasis ambulation-added Eugenio stocking, IV fluids,added midodrine . Lower extremities weakness. No back pain or numbness. Fall precautions. vitamin-D is low: added vitamin d . Physiotherapy. Gout. Continue allopurinol. Remote history of hypertension. No longer on metoprolol. Monitor blood pressure closely Code status: Full DVT prophylaxis: SCDs ongoing need for hospitalization for elevated LFTs, dizziness acute lactic acidosis IV fluids, blood workup monitor and evaluation by subspecialty Quality Stroke Does the patient have a stroke diagnosis?: No VTE Prior VTE?: No VTE Risk Level:: Medical - moderate - high VTE Device Contraindication: N/A - Device Ordered VTE Drug Contraindication: Treatment Not Indicated
[2025-06-09] VITALS (17 sets, daily range): BP systolic 101–142; BP diastolic 52–90; PULSE 80–137; RESP 16–20; TEMP 36.7–37.7; O2SAT 95–99
--- NOTE | 2025-06-09 | ECG_ITS ---
Test Reason : rythem check Blood Pressure : */* mmHG Vent. Rate : 138 BPM Atrial Rate : 138 BPM P-R Int : 138 ms QRS Dur : 74 ms QT Int : 356 ms P-R-T Axes : * -32 0 degrees QTcB Int : 539 ms Sinus tachycardia Left axis deviation Low voltage QRS Abnormal ECG When compared with ECG of 05-Jun-2025 20:02, Premature atrial complexes are no longer Present T wave inversion now evident in Inferior leads Nonspecific T wave abnormality now evident in Anterolateral leads Referred By: Ila Barba Electronically Signed By: AARON HERNÁNDEZ MD
[2025-06-09] MEDS: 0.9 % Sodium Chloride Flush 3 ML SYRINGE IVFLUSH ×3 (08:45→19:49)
--- NOTE | 2025-06-09 14:24 | P.PNIM_ITS ---
Subjective Subjective Date of Service: 06/09/25 Interval History: alcohol withdrawals , ? relative orthostasis Review of Systems Also is feeling improving but blood pressure is still fluctuating with tachycardia with standing. Review of Systems: Yes all other systems are reviewed and are negative Physical Exam 2 Exam: Exam: Appearance: Alert.? Oriented X3.?. cvs: rrr, [id number]. res: clear to auscultation ,no rhonchii or wheezing abd: no rebound or guarding ,nt, bs present. ext pulses present , no cyanosis . neuro: axo3 , nonfocal. Vital Signs: Vital Signs: Last Vital Signs Temp 98.0 F 06/09/25 11:11 Pulse 106 H 06/09/25 14:10 Resp 20 06/09/25 11:11 BP 101/65 06/09/25 14:10 Pulse Ox 98 06/09/25 11:11 O2 Del Method Room Air 06/09/25 11:11 BMI result Body Mass Index 32.0 Objective Data Active Medications Acetaminophen (Acetaminophen 325 Mg Tablet) 650 mg PO Q6H PRN PRN Reason: Pain, Mild 1-3,fever,headache Last Admin: 06/09/25 08:49 Dose: 650 mg Documented By: ARIEL Allopurinol (Allopurinol 100 Mg Tablet) 100 mg PO DAILY [facility] Last Admin: 06/09/25 08:45 Dose: 100 mg Documented By: ARIEL Calcium Carbonate (Calcium Carbonate 750 Mg Tab.Chew) 750 mg PO Q4H PRN PRN Reason: Heartburn Ceftriaxone Sodium (Ceftriaxone Sodium 1 Gm Vial) 1 gm IVPUSH Q24H [facility] Last Admin: 06/08/25 20:32 Dose: 1 gm Documented By: KEIKO Docusate Sodium (Docusate Sodium 100 Mg Capsule) 100 mg PO BID [facility] Last Admin: 06/09/25 08:45 Dose: 100 mg Documented By: ARIEL Folic Acid (Folic Acid 1 Mg Tablet) 1 mg PO DAILY [facility] Last Admin: 06/09/25 08:45 Dose: 1 mg Documented By: ARIEL Ibuprofen (Ibuprofen 400 Mg Tablet) 400 mg PO Q6H PRN PRN Reason: Pain, Severe (Pain Scale 7-10) Last Admin: 06/07/25 10:01 Dose: 400 mg Documented By: SHARDA Magnesium Hydroxide (Milk Of Magnesia 30 Ml Oral.Susp) 30 ml PO DAILY PRN PRN Reason: Constipation Last Admin: 06/06/25 20:12 Dose: 30 ml Documented By: DELMIS Magnesium Oxide (Magnesium Oxide 400 Mg Tablet) 400 mg PO BIDPC [facility] Last Admin: 06/09/25 08:45 Dose: 400 mg Documented By: ARIEL Melatonin (Melatonin 3 Mg Tablet) 6 mg PO BEDTIME PRN PRN Reason: Insomnia Midodrine (Midodrine Hcl 2.5 Mg Tablet) 2.5 mg PO TID [facility] Last Admin: 06/09/25 08:45 Dose: 2.5 mg Documented By: ARIEL Multivitamins/Vitamin C (Multivitamin Tablet) 1 tab PO DAILY [facility] Last Admin: 06/09/25 08:45 Dose: 1 tab Documented By: ARIEL Polyethylene Glycol (Polyethylene Glycol 3350 17 Gm Powd.Pack) 17 gm PO DAILY [facility] Last Admin: 06/09/25 08:45 Dose: 17 gm Documented By: ARIEL Sodium Chloride (0.9 % Sodium Chloride Flush 3 Ml Syringe) 3 ml IVFLUSH QSHIFT [facility] Last Admin: 06/09/25 08:45 Dose: 3 ml Documented By: ARIEL Thiamine HCl (Thiamine Hcl 100 Mg Tablet) 100 mg PO DAILY [facility] Last Admin: 06/09/25 08:45 Dose: 100 mg Documented By: ARIEL Vitamin D (Cholecalciferol (Vitamin D3) 25 Mcg Tablet) 25 mcg PO DAILY [facility] Last Admin: 06/09/25 08:45 Dose: 25 mcg Documented By: ARIEL Labs 06/06/25 05:35 06/07/25 09:07 Assessment and Plan (1) Orthostasis: Status: Acute Plan 69 y/l man presents with: orthostasis :dizziness still symptomatic echo:1. Hyperdynamic LV EF of greater than 70% with mild LVH with impaired relaxation filling pattern . 2. Calcific aortic valve changes noted with normal cardiac valvular Dopplers. 3. Mildly dilated ascending aorta at 3.7 cm 4. No gross pericardial effusion. plan:started ivf , harmony stockings, midodrine tele seems fine will add nephro eval Elevated LFTs likely secondary to severe hepatic steatosis due to alcohol abuse. lft;s improivng inr fine ggt elevated hepatitis profile pending Patient advised to avoid alcohol consumption. Continue to monitor. GI consult-likely due to alcoholic hepatitis ,no steriod need, patient was strongly advised to abstain from alcohol.. Acute lactic acidosis. Doubt severe sepsis. Likely secondary to above/liver disease. Received fluid, lactic acid improving. No further lactic acid trending unless clinical situation changes. Alcohol use disorder. No sign of withdrawal, [facility] protocol. Continue thiamine, folic acid and multivitamins. Hypomagnesemia, secondary to above. Repleted and resolved. Urinary tract infection. Continue ceftriaxone 1 g IV daily. Urine culture /blood culture pending. Macrocytic anemia. Anemia workup. Continue to monitor. Lower extremities weakness. No back pain or numbness. Fall precautions. vitamin-D deficiency: added vitamin d . Physiotherapy. Gout. Continue allopurinol. Remote history of hypertension. No longer on metoprolol. Monitor blood pressure closely Code status: Full DVT prophylaxis: SCDs ongoing need for hospitalization for elevated LFTs, dizziness /orthostasis -need ivf /tedst/midodrine and evaluation by subspecialty addm: Patient tele -arouns 4: 30 pm -?sinus tachy 150-160 ? very brief for 20-30 sec ekg , tsh added will add po metoprolol, cardiology eval. if goes high again 150's -will get another ekg currently asymptomatic added ivf Quality Stroke Does the patient have a stroke diagnosis?: No VTE Prior VTE?: No VTE Risk Level:: Medical - moderate - high VTE Device Contraindication: N/A - Device Ordered VTE Drug Contraindication: Treatment Not Indicated
--- NOTE | 2025-06-09 14:42 | P.CDIM_ITS ---
PROVIDER RESPONSE TEXT: To clarify, the appropriate diagnosis supported by the clinical indicators: Vitamin D Deficiency: vit d deficiency QUERY TEXT: PHYSICIAN'S DOCUMENTATION REQUEST Date of Query: 06/09/2025 11:48 AM EDT Patient Name: Jus Beatty Admit Date: 06/06/2025 Dear Ila Barba MD, A review of the medical record indicates additional documentation may be needed. Please review below and update the documentation accordingly. Clinical Indicators: Progress note dated 06/08/2025- Lower extremities weakness. Vitamin D is low. Added Vitamin D. Based on the above, could you clarify the appropriate diagnosis is there a diagnosis that correlates with these findings? Vitamin D Deficiency resolved, possible, probable, suspected etc. Labs indicate a diagnosis of (please specify) Other (explain) Clinically unable to determine (explain) Thank you, Sussy Bustos, CCS, CDIS Use of terms such as suspected, likely, concern for, or probable (associated with a specific diagnosis that is being evaluated, monitored, or treated as if it exists) are acceptable and can be coded in the inpatient setting, when documented at the time of discharge. Please use your independent medical judgment in providing your response. THIS QUERY IS PART OF THE PERMANENT MEDICAL RECORD
[2025-06-09] MEDS: Lactated Ringers 1,000 ML 100 ML IVCONT (16:45)
[2025-06-09 17:35] LABS: Thyroid Stimulating Hormone 6.54 uIU/mL (0.32-4.0)
[2025-06-10] VITALS (15 sets, daily range): BP systolic 92–139; BP diastolic 58–81; PULSE 73–117; RESP 16–20; TEMP 36.3–37.2; O2SAT 96–98
[2025-06-10] MEDS: Lactated Ringers 1,000 ML 100 ML IVCONT (02:45)
--- NOTE | 2025-06-10 09:55 | P.CONCA_ITS ---
History of Present Illness History of Present Illness Date of Service: 06/10/25 Requesting physician: Ila Barba Consult reason: other (Postural orthostatic tachycardia syndrome) Chief complaint: Near-Syncope, Hypomagnesemia, UTI Narrative: I was consulted to see Jus in cardiology consultation today for persistent orthostasis and tachycardia and concern for some atrial arrhythmias. Patient was admitted to the hospital after he said he was trying to climb up his car which has been car and was trying to a push himself up but got really weak and had to sit himself down. When he came to the Emergency was noted to have lactic acidosis as well as low blood pressure and anemia. He was felt to be dehydrated. He was admitted and being manage. He to the hospitalist team said that he drinks about a bottle of what kind of weak. He has to drink a lot more when he was working. He however does not think this drinking a significant issue. Denies any significant smoking. Has prior history of gout. No prior history of hypertension, diabetes, cardiovascular events, hyperlipidemia. After adequate hydration he continues to remain orthostatic. He is still getting lingering dictated about 80 cc an hour. Was started on midodrine yesterday at 2.5 mg t.i.d. as well as metoprolol. This was after he was noted to have tachycardia on the telemetry. Some of the strips are of poor quality although 1 of the event appears to be atrial tachycardia at 150 beats per minute. He has no symptoms of palpitations. He said he had a syncopal episode about 8 or 9 months ago. He denies any neuropathic symptoms. Echocardiogram shows hyperdynamic LV ejection fraction with mild LVH. He has no history of hypertension and mildly increased thickness of left ventricle is suspect Review of Systems 2 Constitutional: Constitutional: Reports no additional constitutional complaints Cardiovascular: Cardiovascular: Denies chest pain, Reports rapid heart rate, Denies leg edema, Reports lightheadedness, Denies palpitations, Denies dyspnea, Denies dyspnea on exertion and Denies orthopnea Respiratory: Respiratory: Reports no additional respiratory complaints, Denies dyspnea and Denies dyspnea on exertion Gastrointestinal: Gastrointestinal: Reports no additional gastrointestinal complaints Musculoskeletal: Musculoskeletal: Reports no additional musculoskeletal complaints Psychiatric: Psychiatric: Reports no additional psychiatric complaints Endocrine: Endocrine: Denies palpitations PMFSH Past Medical History Medical History (Updated 06/10/25 @ 10:04 by Romeo Beltran MD) Gout HTN (hypertension) Social History Social History Household Members: Children and Other Household Members Other:: Daughter in law Housing: Homeless Do you presently have visiting nurse or other home services: No Alcohol intake: former Patient Tobacco Use Status: Tobacco use Unknown service: No Meds Allergies Allergy/AdvReac Type Severity Reaction Status Date / Time No Known Allergies Allergy Verified 06/05/25 19:47 Active Medications: Current Medications Acetaminophen (Acetaminophen 325 Mg Tablet) 650 mg PO Q6H PRN PRN Reason: Pain, Mild 1-3,fever,headache Last Admin: 06/09/25 08:49 Dose: 650 mg Allopurinol (Allopurinol 100 Mg Tablet) 100 mg PO DAILY [facility] Last Admin: 06/10/25 09:11 Dose: 100 mg Calcium Carbonate (Calcium Carbonate 750 Mg Tab.Chew) 750 mg PO Q4H PRN PRN Reason: Heartburn Ceftriaxone Sodium (Ceftriaxone Sodium 1 Gm Vial) 1 gm IVPUSH Q24H [facility] Last Admin: 06/09/25 19:49 Dose: 1 gm Cyanocobalamin (Cyanocobalamin (Vitamin B-12) 1,000 Mcg Tablet) 1,000 mcg PO DAILY [facility] Last Admin: 06/10/25 09:11 Dose: 1,000 mcg Docusate Sodium (Docusate Sodium 100 Mg Capsule) 100 mg PO BID [facility] Last Admin: 06/10/25 09:11 Dose: 100 mg Ergocalciferol (Ergocalciferol (Vitamin D2) 1,250 Mcg Capsule) 1,250 mcg PO Tu@1600 [facility] Last Admin: 06/09/25 15:42 Dose: 1,250 mcg Folic Acid (Folic Acid 1 Mg Tablet) 1 mg PO DAILY [facility] Last Admin: 06/10/25 09:11 Dose: 1 mg Lactated Ringer's (Lr) 1,000 mls @ 100 mls/hr IVCONT .Q10H [facility] Last Admin: 06/10/25 02:45 Dose: 100 mls/hr Ibuprofen (Ibuprofen 400 Mg Tablet) 400 mg PO Q6H PRN PRN Reason: Pain, Severe (Pain Scale 7-10) Last Admin: 06/07/25 10:01 Dose: 400 mg Magnesium Hydroxide (Milk Of Magnesia 30 Ml Oral.Susp) 30 ml PO DAILY PRN PRN Reason: Constipation Last Admin: 06/06/25 20:12 Dose: 30 ml Magnesium Oxide ([facility] 400 Mg Tablet) [facility] Last Admin: 06/10/25 09:11 Dose: 400 mg Melatonin (Melatonin 3 Mg Tablet) 6 mg PO BEDTIME PRN PRN Reason: Insomnia Metoprolol Tartrate (Metoprolol Tartrate 25 Mg Tablet) 25 mg PO BID [facility]; Protocol Last Admin: 06/10/25 09:11 Dose: 25 mg Midodrine (Midodrine Hcl 2.5 Mg Tablet) 2.5 mg PO TID [facility] Last Admin: 06/10/25 09:11 Dose: 2.5 mg Multivitamins/Vitamin C (Multivitamin Tablet) 1 tab PO DAILY [facility] Last Admin: 06/10/25 09:11 Dose: 1 tab Polyethylene Glycol (Polyethylene Glycol 3350 17 Gm Powd.Pack) 17 gm PO DAILY [facility] Last Admin: 06/10/25 09:11 Dose: 17 gm Sodium Chloride (0.9 % Sodium Chloride Flush 3 Ml Syringe) [facility] Last Admin: 06/10/25 09:11 Dose: Not Given Thiamine HCl (Thiamine Hcl 100 Mg Tablet) 100 mg PO DAILY [facility] Last Admin: 06/10/25 09:11 Dose: 100 mg Home Medications ?Medication ?Instructions ?Recorded ?Confirmed ?Last Taken ?Type allopurinol 100 mg tablet 100 mg PO DAILY 06/06/2503/2506/04/25 History ibuprofen 200 mg tablet 400 mg PO Q6H PRN Pain 06/0606/06/25 06/04/25 History [id number] 150 mcg-vit K1 1 tab PO DAILY 06/0606/06/25 06/04/25 History 30 mcg-lycop 300 mcg-lutein tablet (Centrum Minis Men 50 Plus) Physical Exam 2 Vital Signs: Vital Signs: Last Vital Signs Temp 98.9 F 06/10/25 07:19 Pulse 117 H 06/10/25 09:41 Resp 18 06/10/25 07:19 BP 92/61 06/10/25 09:41 Pulse Ox 98 06/10/25 07:19 O2 Del Method Room Air 06/10/25 07:19 BMI result Body Mass Index 32.0 Const: General: cooperative, comfortable, no acute distress, alert and awake Nutritional Appearance: obese centrally obese Orientation/consciousness: p atient oriented x3 Limitations: no limitations HEENT: Head: Yes normocephalic and Yes atraumatic Neck: Neck: Yes trachea midline, Yes supple and Yes no JVD Resp: Effort & Inspection: normal respiratory effort Auscultation: clear to auscultation bilaterally Cardio: Jugular venous distension: no JVD Palpation: normal PMI Rate: r egular rate Rhythm: regular rhythm Heart sounds: S1 normal heart sound present, S2 normal heart sound present, no click, no gallops, no murmurs and no rubs GI: Auscultation: normal bowel sounds Skin: General skin exam: no rashes or lesions noted Neuro: General: patient oriented x3 and no focal motor deficits Extrem: General: Yes no clubbing, cyanosis or edema Objective Labs and Meds 06/06/25 05:35 06/07/25 09:07 Lab results: Laboratory Results - last 24 hr 06/09/25 16:56 TSH 6.54 H Assessment and Plan (1) Postural orthostatic tachycardia syndrome: Status: Acute Postural orthostatic tachycardia syndrome in this elderly gentleman with prior significant alcohol use suggestive of autonomic dysfunction. This could be related to autonomic neuropathy related to alcohol use and other possible etiologies include amyloidosis given LV wall thickness which is increased on echocardiogram. Would suggest serum and urine protein electrophoresis as well as free light chain analysis. Will eventually pursue amyloidosis workup for ATTR type as outpatient with imaging. Meanwhile treating in his orthostasis with increase IV fluid and adding Florinef 0.1 mg to his regimen. Continue midodrine therapy. Continue metoprolol therapy. Repeat orthostatic vitals later in the day. If the blood pressure and orthostatic changes have improved can plan to discharge. Advised to avoid alcohol use. Continue multivitamins including B1 and B6. Consider nerve conduction study from neurologic perspective. Will follow with you Procedures Date of Service Date of Service: 06/10/25
[2025-06-10] MEDS: Milk of Magnesia 30 ML ORAL.SUSP PO (11:27)
[2025-06-10] MEDS: Lactated Ringers 1,000 ML 125 ML IVCONT ×2 (11:27→20:06)
--- NOTE | 2025-06-10 12:04 | MHC.CM.PN ---
Per ROUNDS discussion, Patient is not yet medically cleared for dc (still orthostatic); home is Patient's goal and CM will continue to follow.
[2025-06-10 12:44] LABS: OBS Int Ctl Valid YES; OBS1 NEGATIVE (NEGATIVE)
--- NOTE | 2025-06-10 12:56 | P.PNIM_ITS ---
Subjective Subjective Date of Service: 06/10/25 Interval History: still orthostatic but less symptoms Physical Exam 2 Vital Signs: Vital Signs: Last Vital Signs Temp 97.9 F 06/10/25 11:00 Pulse 75 06/10/25 11:00 Resp 20 06/10/25 11:00 BP 100/60 06/10/25 11:00 Pulse Ox 96 06/10/25 11:00 O2 Del Method Room Air 06/10/25 11:00 BMI result Body Mass Index 32.0 Const: General: cooperative, comfortable, no acute distress, alert and awake Nutritional Appearance: obese centrally obese Orientation/consciousness: p atient oriented x3 Limitations: no limitations HEENT: Head: Yes normocephalic and Yes atraumatic Neck: Neck: Yes trachea midline, Yes supple and Yes no JVD Resp: Effort & Inspection: normal respiratory effort Auscultation: clear to auscultation bilaterally Cardio: Jugular venous distension: no JVD Palpation: normal PMI Rate: r egular rate Rhythm: regular rhythm Heart sounds: S1 normal heart sound present, S2 normal heart sound present, no click, no gallops, no murmurs and no rubs GI: Auscultation: normal bowel sounds Skin: General skin exam: no rashes or lesions noted Neuro: General: patient oriented x3 and no focal motor deficits Extrem: General: Yes no clubbing, cyanosis or edema Objective Data Active Medications Acetaminophen (Acetaminophen 325 Mg Tablet) 650 mg PO Q6H PRN PRN Reason: Pain, Mild 1-3,fever,headache Last Admin: 06/09/25 08:49 Dose: 650 mg Documented By: ARIEL Allopurinol (Allopurinol 100 Mg Tablet) 100 mg PO DAILY [facility] Last Admin: 06/10/25 09:11 Dose: 100 mg Documented By: MILAGRO Calcium Carbonate (Calcium Carbonate 750 Mg Tab.Chew) 750 mg PO Q4H PRN PRN Reason: Heartburn Ceftriaxone Sodium (Ceftriaxone Sodium 1 Gm Vial) 1 gm IVPUSH Q24H [facility] Last Admin: 06/09/25 19:49 Dose: 1 gm Documented By: KEIKO Cyanocobalamin (Cyanocobalamin (Vitamin B-12) 1,000 Mcg Tablet) 1,000 mcg PO DAILY [facility] Last Admin: 06/10/25 09:11 Dose: 1,000 mcg Documented By: MILAGRO Docusate Sodium (Docusate Sodium 100 Mg Capsule) 100 mg PO BID [facility] Last Admin: 06/10/25 09:11 Dose: 100 mg Documented By: MILAGRO Ergocalciferol (Ergocalciferol (Vitamin D2) 1,250 Mcg Capsule) 1,250 mcg PO Tu@1600 [facility] Last Admin: 06/09/25 15:42 Dose: 1,250 mcg Documented By: ARIEL Fludrocortisone Acetate (Fludrocortisone Acetate 0.1 Mg Tablet) 0.1 mg PO DAILY [facility] Last Admin: 06/10/25 11:27 Dose: 0.1 mg Documented By: MILAGRO Folic Acid (Folic Acid 1 Mg Tablet) 1 mg PO DAILY [facility] Last Admin: 06/10/25 09:11 Dose: 1 mg Documented By: MILAGRO Lactated Ringer's (Lr) 1,000 mls @ 125 mls/hr IVCONT .Q8H [facility] Last Admin: 06/10/25 11:27 Dose: 125 mls/hr Documented By: MILAGRO Ibuprofen (Ibuprofen 400 Mg Tablet) 400 mg PO Q6H PRN PRN Reason: Pain, Severe (Pain Scale 7-10) Last Admin: 06/07/25 10:01 Dose: 400 mg Documented By: SHARDA Magnesium Hydroxide (Milk Of Magnesia 30 Ml Oral.Susp) 30 ml PO DAILY PRN PRN Reason: Constipation Last Admin: 06/10/25 11:27 Dose: 30 ml Documented By: MILAGRO Magnesium Oxide (Magnesium Oxide 400 Mg Tablet) 400 mg PO BIDPC [facility] Last Admin: 06/10/25 09:11 Dose: 400 mg Documented By: MILAGRO Melatonin (Melatonin 3 Mg Tablet) 6 mg PO BEDTIME PRN PRN Reason: Insomnia Metoprolol Tartrate (Metoprolol Tartrate 25 Mg Tablet) 25 mg PO BID [facility]; Protocol Last Admin: 06/10/25 09:11 Dose: 25 mg Documented By: MILAGRO Midodrine (Midodrine Hcl 2.5 Mg Tablet) 2.5 mg PO TID [facility] Last Admin: 06/10/25 09:11 Dose: 2.5 mg Documented By: MILAGRO Multivitamins/Vitamin C (Multivitamin Tablet) 1 tab PO DAILY [facility] Last Admin: 06/10/25 09:11 Dose: 1 tab Documented By: MILAGRO Polyethylene Glycol (Polyethylene Glycol 3350 17 Gm Powd.Pack) 17 gm PO DAILY [facility] Last Admin: 06/10/25 09:11 Dose: 17 gm Documented By: MILAGRO Sodium Chloride (0.9 % Sodium Chloride Flush 3 Ml Syringe) 3 ml IVFLUSH QSHIFT [facility] Last Admin: 06/10/25 09:11 Dose: Not Given Documented By: MILAGRO Non-Admin Reason: IV Running Thiamine HCl (Thiamine Hcl 100 Mg Tablet) 100 mg PO DAILY [facility] Last Admin: 06/10/25 09:11 Dose: 100 mg Documented By: MILAGRO Labs 06/06/25 05:35 06/07/25 09:07 Labs: Laboratory Results - last 24 hr 06/09/25 06/10/25 16:56 12:21 TSH 6.54 H Stool Occult Blood NEGATIVE Assessment and Plan (1) Orthostasis: Status: Acute Plan 69M PMH gout, alcohol dependence presented with dizziness Dizziness due to orthostatic hypotension Continue IV fluids, started on Florinef, midodrine 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
[2025-06-10] MEDS: 0.9 % Sodium Chloride Flush 3 ML SYRINGE IVFLUSH (20:45)
[2025-06-11] VITALS (9 sets, daily range): BP systolic 98–151; BP diastolic 58–89; PULSE 73–93; RESP 16–18; TEMP 36.4–36.9; O2SAT 94–95
[2025-06-11] MEDS: Lactated Ringers 1,000 ML 125 ML IVCONT ×2 (04:22→12:03)
[2025-06-11 09:18] LABS: Hematocrit 27.1 % (42.0-52.0); Hemoglobin 9.5 g/dl (14.0-18.0); Mean Corpuscular HGB Conc 35.1 g/dl (31.0-36.0); Mean Corpuscular Hemoglobin 37.0 pg (27.0-33.0); Mean Corpuscular Volume 105.4 fL (80.0-98.0); NRBC Abs Auto 0.000 X10*3/uL (0.0-0.012); NRBC Pct Auto 0.0 /100WBC (0.0-0.2); Platelet Count 178 X10*3/uL (160-400); Red Blood Count 2.57 X10*6/uL (4.60-5.80); White Blood Count 6.8 X10*3/uL (4.8-10.8)
[2025-06-11 09:36] LABS: Alanine Aminotransferase 53 U/L (0-40); Albumin Level 3.2 g/dL (3.5-5.0); Alkaline Phosphatase 155 U/L (39-117); Anion Gap 13 (12-20); Aspartate Amino Transferase 95 U/L (5-37); Blood Urea Nitrogen 5 mg/dL (9-16); Calcium 8.5 mg/dL (8.4-10.2); Carbon Dioxide 20 mmol/L (22-29); Chloride 106 mmol/L (96-108); Creatinine Clr Calc Pharmacy 116.8; Estimated Glomerular Filt Rate > 60; Magnesium 1.9 mg/dL (1.6-2.6); Potassium 3.6 mmol/L (3.3-5.1); Sodium 135 mmol/L (135-145); Total Protein 6.2 g/dL (6.5-8.0)
--- NOTE | 2025-06-11 10:26 | PM.PNCARD ---
Subjective Subjective Date of Service: 06/11/25 Principal diagnosis: POTS Interval history: Patient has no symptoms. On orthostatic measurements today he was still orthostatic but much better heart rate control with hydration. In the morning blood pressure is noted to be elevated in the 150 range although later his blood pressure was in the 118 range after getting p.o. metoprolol. Review of Systems Review of Systems Yes all other systems are reviewed and are negative Physical Exam Vital Signs: Last Vital Signs Temp 98.4 F 06/11/25 07:20 Pulse 92 06/11/25 09:33 Resp 18 06/11/25 07:20 BP 98/58 L 06/11/25 09:33 Pulse Ox 94 06/11/25 07:20 O2 Del Method Room Air 06/11/25 07:20 BMI result Body Mass Index 32.0 Const General: cooperative, comfortable, no acute distress, alert and awake Nutritional Appearance: obese centrally obese Orientation/consciousness: patient oriented x3 Limitations: no limitations HEENT Head: Yes normocephalic and Yes atraumatic Neck Neck: Yes trachea midline, Yes supple and Yes no JVD Resp Effort & Inspection: normal respiratory effort Auscultation: clear to auscultation bilaterally Cardio Jugular venous distension: no JVD Palpation: normal PMI Rate: regular rate Rhythm: regular rhythm Heart sounds: S1 normal heart sound present, S2 normal heart sound present, no click, no gallops, no murmurs and no rubs GI Auscultation: normal bowel sounds Skin General skin exam: no rashes or lesions noted Neuro General: patient oriented x3 and no focal motor deficits Extrem General: Yes no clubbing, cyanosis or edema Objective Labs and Meds 06/11/25 08:56 06/11/25 08:56 Lab results: Laboratory Results - last 24 hr 06/10/25 06/11/25 12:21 08:56 WBC 6.8 RBC 2.57 L Hgb 9.5 L Hct 27.1 L MCV 105.4 H MCH 37.0 H MCHC 35.1 RDW 15.2 Plt Count 178 D MPV 10.9 Absolute Nucleated RBC 0.000 Nucleated RBC % (auto) 0.0 Sodium 135 Potassium 3.6 Chloride 106 Carbon Dioxide 20 L Anion Gap 13 BUN 5 L Creatinine 0.69 Estim Creat Clear Calc 116.8 Estimated GFR > 60 Random Glucose 73 Calcium 8.5 Magnesium 1.9 Total Bilirubin 1.1 H Direct Bilirubin 0.7 H AST 95 H ALT 53 H Alkaline Phosphatase 155 H Total Protein 6.2 L Albumin 3.2 L Stool Occult Blood NEGATIVE Progress Note: A&P Assessment and plan (1) Postural orthostatic tachycardia syndrome: Status: Acute Assessment and Plan: Patient with POTS related to autonomic dysfunction most likely related to neuropathy from alcohol use. Had a detailed discussion about avoiding alcohol use. I think he is understanding of the disease process is limited not sure if he has cognitive dysfunction related to his alcohol use disorder. However for now will continue current medical management including midodrine, Florinef as well as metoprolol therapy. Encouraged to increase fluid intake to at least 60 oz a day. Problem would be supine hypertension this will need to be monitored at home. Discussed with him about blood pressure monitoring. Will sign of the case and follow as outpatient Time Spent With Patient Time: Total time managing care of this patient today ____ minutes. Progress Note: Quality Stroke Does the patient have a stroke diagnosis?: No Procedures Date of Service Date of Service: 06/11/25
--- NOTE | 2025-06-11 10:41 | P.DS_ITS ---
DS: Providers Provider Date of Service: 06/11/25 Date of admission: 06/05/25 23:29 Date of discharge: 06/11/25 Primary care physician: None Physician Consults: 06/06/25 01:20 Consult to Gastroenterology Routine Consulting Provider: Puma Bright Reason for consultation: Elevated LFTs Has provider been notified: No 06/09/25 16:34 Consult to Cardiology Routine Consulting Provider: [facility] Reason for consultation: aflutter new, oethostatic hypotension Has provider been notified: No DS: Diagnosis Discharge Diagnosis (1) Postural orthostatic tachycardia syndrome: Status: Acute DS: Summary Hospital Course Hospital Course: from initial hpi: 69 years old man with past medical history significant for gout was brought to the emergency department via ambulance after he had an event of dizziness today. He also mentioned that his legs became suddenly weak and had to sit himself down. He denied any lower back pain or numbness to the lower extremities. He denied loss of consciousness. He also denied any headache, acute visual disturbances, focal weakness, speech difficulty, swallowing difficulty, chest pain, shortness on breath, cough, fever, chills, abdominal pain, nausea, vomiting or diarrhea. He has noted that his urine is getting darker and have mild pain with urination. He drinks two shots of vodka before going to sleep and has been doing this for a long time. He smoked cigars sometimes and denied illicit drug use. He only takes medications for gout, allopurinol. He denied history of high blood pressure, diabetes mellitus, hyperlipidemia or liver disease. In the ED, he was found to have stable vital signs. Blood workup showed no leukocytosis. Hemoglobin is 9.5 and platelets 140. There is hypomagnesemia 1.4 but no other electrolyte imbalances. There is lactic acidosis of 3.9. LFTs are significantly elevated: Total bilirubin 1.9, direct bilirubin 1.2, AST 157, ALT 55, alk-phos 141. Lipase is 161 and albumin. Urinalysis consistent with hematuria and urinary tract infection. ETOH level is < 10. Knee x-rays are negative. Abdominal pelvis CT scan with IV contrast showed no acute intra-abd ominal/pelvis abnormalities. There is severe hepatic steatosis. ECG shows sinus tachycardia with PACs and no ischemic changes. ED Tx: Magnesium 2 g IV, thiamine 200 mg IV, ringer lactate 1 L bolus, ceftriaxone 1 g IV hospital course: Patient was admitted for dizziness due to orthostatic hypotension likely combination of hypovolemia and autonomic neuropathy from alcohol dependence. Was given IV fluids, started on Florinef and midodrine. Patient is still orthostatic but differences have significantly decreased and is no longer symptomatic. He should avoid alcohol and continue orthostatic precautions. Also noted to be borderline B12 and folic acid deficient and was started on supplement. For gout was continued on allopurinol. Patient is feeling better and will be discharged home. Time Attestation Discharge Coordination Time (in mins): 34 Quality: Safe Use of Opioids Does Pt have an Active Cancer Diagnosis on the Problem List?: No Quality: Stroke Does the patient have a stroke diagnosis?: No Physical Exam Vital Signs: Vital Signs: Last Vital Signs Temp 98.4 F 06/11/25 07:20 Pulse 92 06/11/25 09:33 Resp 18 06/11/25 07:20 BP 98/58 L 06/11/25 09:33 Pulse Ox 94 06/11/25 07:20 O2 Del Method Room Air 06/11/25 07:20 BMI result Body Mass Index 32.0 Const: General: cooperative, comfortable, no acute distress, alert and awake Nutritional Appearance: obese centrally obese Orientation/consciousness: patient oriented x3 Limitations: no limitations HEENT: Head: Yes normocephalic and Yes atraumatic Neck: Neck: Yes trachea midline, Yes supple and Yes no JVD Resp: Effort & Inspection: normal respiratory effort Auscultation: clear to auscultation bilaterally Cardio: Jugular venous distension: no JVD Palpation: normal PMI Rate: regular rate Rhythm: regular rhythm Heart sounds: S1 normal heart sound present, S2 normal heart sound present, no click, no gallops, no murmurs and no rubs GI: Auscultation: normal bowel sounds Skin: General skin exam: no rashes or lesions noted Neuro: General: patient oriented x3 and no focal motor deficits Extrem: General: Yes no clubbing, cyanosis or edema DS: Data Data Completed and Pending Labs on day of discharge: Laboratory Results - last 24 hr 06/10/25 06/11/25 12:21 08:56 WBC 6.8 RBC 2.57 L Hgb 9.5 L Hct 27.1 L MCV 105.4 H MCH 37.0 H MCHC 35.1 RDW 15.2 Plt Count 178 D MPV 10.9 Absolute Nucleated RBC 0.000 Nucleated RBC % (auto) 0.0 Sodium 135 Potassium 3.6 Chloride 106 Carbon Dioxide 20 L Anion Gap 13 BUN 5 L Creatinine 0.69 Estim Creat Clear Calc 116.8 Estimated GFR > 60 Random Glucose 73 Calcium 8.5 Magnesium 1.9 Total Bilirubin 1.1 H Direct Bilirubin 0.7 H AST 95 H ALT 53 H Alkaline Phosphatase 155 H Total Protein 6.2 L Albumin 3.2 L Stool Occult Blood NEGATIVE Discharge Plan Discharge Anticipated Discharge Date/Time: 06/07/25 08:44 Patient Disposition: Home, Self-Care Discharge Diagnosis: Alcohol use, hypomagnesemia, elevated LFT. Referrals: Physician,None [Primary Care Provider, Medical] - 1 Week Discharge Medications: New midodrine 2.5 mg Tablet 2.5 mg PO TID Qty: 180 0RF cyanocobalamin (vitamin B-12) [Vitamin B-12] 1,000 mcg Tablet 1,000 mcg PO DAILY 90 Days Qty: 90 0RF magnesium oxide 400 mg (241.3 mg magnesium) Tablet 400 mg PO BIDPC 90 Days Qty: 180 0RF ergocalciferol (vitamin D2) [Vitamin D2] 1,250 mcg (50,000 unit) Capsule 1,250 mcg PO Tu@1600 90 Days Qty: 13 0RF fludrocortisone 0.1 mg Tablet 0.1 mg PO DAILY 90 Days Qty: 90 0RF metoprolol tartrate 25 mg Tablet 25 mg PO BID 90 Days Qty: 180 0RF Protocol: Hold for SBP/HR < HOLD for SBP < : 90 HOLD for HR < : 60 multivitamin [Daily-Carlos] Tablet 1 tab PO DAILY 90 Days Qty: 90 0RF folic acid 1 mg Tablet 1 mg PO DAILY 90 Days Qty: 90 0RF thiamine mononitrate (vit B1) 100 mg Tablet 100 mg PO DAILY 90 Days Qty: 90 0RF Continued allopurinol 100 mg tablet 100 mg PO DAILY ibuprofen 200 mg Tablet 400 mg PO Q6H PRN (Reason: Pain) Centrum Minis Men 50 Plus [id number] mcg Tablet 1 tab PO DAILY Discharge Orders: Discharge Order (Routine); Ordered 06/11/25 Ordered By: Trung Mazariegos Diet: Advance to usual diet Activity on Discharge: As tolerated Stand Alone Forms: Patient Portal Discharge page Print Language: Turkmen Care Plan Goals: recovery Health Concerns: orthostatic hypotension, etoh dependence Plan of Treatment: med changes per medrec avoid etoh Assessment: see above
--- NOTE | 2025-06-11 10:49 | MHC.CM.PN ---
Addendum entered by Doreen Carrera 06/11/25 12:55: CM arranged a 1PM [employer] for transport to home. RN is aware. Original Note: Patient has been medically cleared for dc to home today, self care.IMM was addressed with Patient;original was given to him and a copy has been placed on the chart. Patient's Son will transport to home.
== END 2025-06-11 13:04 | disposition home or self-care (01) | DRG 433 ==
LOC: HO.ED 23:15 → HO.EDOVER 23:32 → HO.IMC 06-06 18:30
PROVIDERS: Internal Medicine; Admitting Provider Internal Medicine; Emergency Provider Emergency Medicine; Visit Provider Internal Medicine
DX: K70.10 Alcoholic hepatitis without ascites (principal); E87.21 Acute metabolic acidosis; N39.0 Urinary tract infection, site not specified; F10.288 Alcohol dependence with other alcohol-induced disorder; E83.42 Hypomagnesemia; M10.9 Gout, unspecified; G62.1 Alcoholic polyneuropathy; E86.1 Hypovolemia; K70.0 Alcoholic fatty liver; G90.A Postural orthostatic tachycardia syndrome [POTS]; Z20.822 Contact with and (suspected) exposure to COVID-19; Z79.899 Other long term (current) drug therapy
CPT/HCPCS: 36415; 70551; 73564; 74177; 76705; 80048; 80053; 80076; 80307; 81001; 82272; 82306; 82607; 82728; 82746; 82947; 82977; 83540; 83605; 83690; 83735; 84132; 84443; 85025; 85027; 85045; 85610; 86704; 86706; 86709; 86803; 87040; 87086; 87340; 87633; 93005; 93306; 97116; 97161; 99285; J0696; J1650; J3411; J3475; J7120; Q9957; Q9967

== ENCOUNTER → 2025-06-05 19:43 | Outpatient (BNV) | payer MEDICARE, SELFPAY | PROVIDERS: Admitting Provider Internal Medicine; Emergency Provider Emergency Medicine; Visit Provider Internal Medicine Cardiovascular Disease | DX: R00.0 Tachycardia, unspecified (principal); I49.1 Atrial premature depolarization | CPT/HCPCS: 93010 ==

== ENCOUNTER → 2025-06-05 19:48 | Outpatient (BNV) | payer MEDICARE, SELFPAY | PROVIDERS: Emergency Provider Emergency Medicine; Visit Provider Radiology Diagnostic Radiology | DX: K76.0 Fatty (change of) liver, not elsewhere classified (principal); M25.561 Pain in right knee; M25.562 Pain in left knee | CPT/HCPCS: 73564; 74177 ==

== ENCOUNTER 2025-06-05 23:29 | Outpatient (BNV) | payer MEDICARE, SELFPAY | END 2025-06-07 10:10 | PROVIDERS: Admitting Provider Internal Medicine; Emergency Provider Emergency Medicine; Visit Provider Radiology Diagnostic Radiology | DX: K76.0 Fatty (change of) liver, not elsewhere classified (principal); R16.0 Hepatomegaly, not elsewhere classified | CPT/HCPCS: 76705 ==

== ENCOUNTER 2025-06-05 23:29 | Outpatient (BNV) | payer MEDICARE, SELFPAY | END 2025-06-08 07:00 | PROVIDERS: Admitting Provider Internal Medicine; Emergency Provider Emergency Medicine; Visit Provider Internal Medicine Cardiovascular Disease | DX: I35.8 Other nonrheumatic aortic valve disorders (principal); I51.89 Other ill-defined heart diseases | CPT/HCPCS: 93306 ==

== ENCOUNTER 2025-06-05 23:29 | Outpatient (BNV) | payer MEDICARE, SELFPAY | END 2025-06-08 19:37 | PROVIDERS: Admitting Provider Internal Medicine; Emergency Provider Emergency Medicine; Visit Provider Student in an Organized Health Care Education/Training Program | DX: I67.9 Cerebrovascular disease, unspecified (principal) | CPT/HCPCS: 70551 ==

== ENCOUNTER 2025-06-05 23:29 | Outpatient (BNV) | payer MEDICARE, SELFPAY | END 2025-06-09 16:38 | PROVIDERS: Admitting Provider Internal Medicine; Emergency Provider Emergency Medicine; Visit Provider Internal Medicine Cardiovascular Disease | DX: R00.0 Tachycardia, unspecified (principal) | CPT/HCPCS: 93010 ==

== ENCOUNTER → 2025-06-05 23:29 | Outpatient (BNV) | payer MEDICARE, SELFPAY | PROVIDERS: Admitting Provider Internal Medicine; Emergency Provider Emergency Medicine; Visit Provider Internal Medicine Cardiovascular Disease | DX: G90.A Postural orthostatic tachycardia syndrome [POTS] (principal) | CPT/HCPCS: 99222 ==

== ENCOUNTER → 2025-06-05 23:29 | Outpatient (BNV) | payer MEDICARE, SELFPAY | PROVIDERS: Admitting Provider Internal Medicine; Emergency Provider Emergency Medicine; Visit Provider Internal Medicine | DX: I95.1 Orthostatic hypotension (principal) | CPT/HCPCS: 99231; 99232 ==

== ENCOUNTER 2025-06-29 11:58 | Emergency (ER) | payer MEDICARE, SELFPAY ==
[2025-06-29] VITALS (7 sets, daily range): BP systolic 122–147; BP diastolic 62–80; PULSE 70–87; RESP 12–18; TEMP 36.9–37.2; O2SAT 96–98; BMI 33.7
--- NOTE | ~2025-06-29 | US_ITS ---
EXAMINATION: US TRIPLEX LOWER EXTREMITY, LEFT CLINICAL INFORMATION: Pain and swelling, left lower extremity COMPARISON: None available. TECHNIQUE: Color-flow triplex imaging with spectral analysis and compression Doppler were performed on the left lower extremity. FINDINGS: Respiratory variation, normal compression and augmented flow are noted throughout the left lower extremity. The visualized common femoral vein, superficial femoral vein, profunda femoral vein, popliteal vein and midcalf peroneal and posterior tibial venous segments show no evidence of deep venous thrombosis. There is reticulation of the subcutaneous soft tissues in the calf consistent with edema. US/US venous duplex LE LT IMPRESSION: No evidence of deep venous thrombosis involving the left lower extremity. Superficial soft tissue edema in the calf. Electronically signed by: Jose Daily MD 06/29/2025 01:30 PM EDT
--- NOTE | 2025-06-29 12:12 | PC.NURSE ---
Addendum entered by Eloy Bryant RN 06/29/25 16:43: L ankle swelling, L ankle pain* Original Note: 69 M presents to ED with R ankle swelling and R ankle pain x 1 week and weakness to R leg. Pt normally ambulates with a cane but sts he's unable to walk on the R leg. swelling noted to R ankle, BLE swelling noted but no pitting edema. A+Ox4, calm, cooperative. Pt c/o 10/10 pain in R ankle. RR even and unlabored, denies CP or SOB.
--- NOTE | 2025-06-29 12:22 | ECG_ITS ---
Test Reason : swelling Blood Pressure : */* mmHG Vent. Rate : 81 BPM Atrial Rate : 81 BPM P-R Int : 154 ms QRS Dur : 76 ms QT Int : 396 ms P-R-T Axes : 68 -23 48 degrees QTcB Int : 460 ms Sinus rhythm with Premature atrial complexes Otherwise normal ECG When compared with ECG of 09-Jun-2025 16:38, Vent. rate has decreased by 57 bpm Nonspecific T wave abnormality, improved in Anterolateral leads Referred By: Melissa Neumann Electronically Signed By: JUAN HAMEED
--- NOTE | 2025-06-29 12:33 | ED.EXTPRO ---
HPI - Extremity Problem General Chief complaint: Extremity Problem Stated complaint: weakness, lt food pain Time Seen by Provider: 06/29/25 12:15 Source: patient, EMS, RN notes reviewed and old records reviewed Mode of arrival: EMS Limitations: no limitations History of Present Illness ED Provider: Darnell Neumann PA-C HPI Narrative: 69-year-old male with a history of alcohol use disorder, now sober, history of gout, with recent admission to [facility] for orthostatic hypotension, abnormal LFTs, and new atrial flutter who presents back to the ER from home via EMS for evaluation of 1 week of left leg pain, swelling. He states he denies any injury to his left leg or ankle. He reports the left ankle hurts and he can not bear weight on it. Patient denies any shortness of breath or chest pain. No history of blood clot. No recent travel. He denies any abdominal pain, nausea, vomiting, diarrhea. No fevers. No history of heart failure CHF MD Complaint: extremity pain and extremity swelling Onset (ago): day(s) (7) Pain Consistency: constant Location: left and lower extremity Severity scale (1-10): 9 Quality: aching Radiation: proximal Relieving factors: rest Exacerbating factors: weight bearing, walking and palpation Associated symptoms: denies other symptoms Related Data Home Medications ?Medication ?Instructions ?Recorded ?Confirmed ibuprofen 200 mg tablet 400 mg PO Q6H PRN Pain 06/06/25 06/29/25 [id number] 150 mcg-vit K1 1 tab PO DAILY 06/06/25 06/29/25 30 mcg-lycop 300 mcg-lutein tablet (Centrum Minis Men 50 Plus) Previous Rx's ?Medication ?Instructions ?Recorded cyanocobalamin (vitamin B-12) 1,000 mcg PO DAILY 90 days #90 tabs 06/11/25 1,000 mcg tablet (Vitamin B-12) ergocalciferol (vitamin D2) 1,250 1,250 mcg PO Tu@1600 90 days #13 06/11/25 mcg (50,000 unit) capsule (Vitamin caps D2) fludrocortisone 0.1 mg tablet 0.1 mg PO DAILY 90 days #90 tabs 06/11/25 metoprolol tartrate 25 mg tablet 25 mg PO BID 90 days #180 tabs 06/11/25 midodrine 2.5 mg tablet 2.5 mg PO TID #180 tabs 06/11/25 Allergies Allergy/AdvReac Type Severity Reaction Status Date / Time No Known Allergies Allergy Verified 06/29/25 12:09 Review of Systems Review of Systems: Yes all other systems are reviewed and are negative [facility] Past Medical History Medical History (Updated 07/02/25 @ 00:00 by Hyacinth Shields) Gout HTN (hypertension) Social History Social History Household Members: Children and Other Household Members Other:: Daughter in law Housing: Homeless Do you presently have visiting nurse or other home services: No Alcohol intake: former Patient Tobacco Use Status: Tobacco use Unknown Advance Directives Date on File: 06/30/25 service: No Physical Exam Exam: Exam: Appearance: Alert. Oriented X3. No acute distress. Head: normocephalic, atraumatic. Eyes: Pupils equal, round and reactive to light. ENT: Pharynx normal. No tonsillar swelling or exudate. poor dentition Neck: Normal inspection. Neck supple. CVS: Normal heart rate and rhythm. Pulses normal. Respiratory: No respiratory distress. Breath sounds normal. Abdomen: Soft and nontender. +BS x4 Skin: Skin warm and dry. Normal skin color. Normal skin turgor. No rashes. Extremities: 3+ lower extremity edema of the left lower leg, ankle and foot. no calf tenderness, no erythema or warmth. foot is warm and well perfused with 1+ PT/DP pusles. trace edema of the right lower leg. Neuro/psych: Oriented X 3. No motor deficit. No sensory deficit. CN II-XII intact. Normal speech and cognition. Vital Signs: Vital Signs: Last Vital Signs Temp 98.1 F 07/01/25 08:31 Pulse 90 07/01/25 08:45 Resp 16 07/01/25 08:31 BP 141/74 H 07/01/25 08:45 Pulse Ox 96 07/01/25 08:31 O2 Del Method Room Air 07/01/25 08:31 BMI result Body Mass Index 33.7 Course Reevaluation(s) Reevaluation #1: Physician observation started at 1521. Patient placed in physician observation because patient is awaiting PT evaluation for possible short term rehab for pain associated with his left leg swelling He has negative workup for left leg swelling, no DVT. pro-BNP elevated however no other signs of volume overload or acute CHF exacerbation. labs all otherwise improved. plan for compression stocking, elevation, lasix 20mg PO x1 for now and reassess. At the time observation was started patient's vital signs were stable. Patient is alert and oriented. Neuro exam is non-focal. CV: RRR and lungs are clear. Will continue to monitor. Time: 15:21 Reevaluation #2: 06/30/25 [id number] JOHN Tanner: Physician observation continued, no overnight events reported by nursing. Vitals stable. following for likely disposition to STR. 06/30/25 1600 JOHN Tanner: Per Breanna from , patient will be discharged to [facility] tomorrow morning for STR. Time: 08:42 Date: 07/01/25 Provider: CARLA Fried Physician observation ended at 1100. Patient is being discharged to [facility]. VSS. Medications Administered Discontinued Medications Generic Name Dose Route Start Last Admin Trade Name Freq PRN Reason Stop Dose Admin Cyanocobalamin 1,000 mcg 06/30/25 09:00 07/01/25 08:45 Cyanocobalamin (Vitamin B-12) 1,000 Mcg Tablet PO 1,000 mcg DAILY CHEY Administration Ergocalciferol 1,250 mcg 06/30/25 16:00 06/30/25 18:07 Ergocalciferol (Vitamin D2) 1,250 Mcg Capsule PO 1,250 mcg Tu@1600 CHEY Administration Fludrocortisone Acetate 0.1 mg 06/30/25 09:00 07/01/25 08:45 Fludrocortisone Acetate 0.1 Mg Tablet PO 0.1 mg DAILY CHEY Administration Furosemide 20 mg 06/29/25 15:21 06/29/25 15:31 Furosemide 20 Mg Tablet PO 06/29/25 15:22 20 mg ONCE ONE Administration Protocol Ibuprofen 600 mg 06/29/25 21:43 07/01/25 08:46 Ibuprofen 600 Mg Tablet PO 600 mg Q6H PRN Administration pain, mild Metoprolol Tartrate 25 mg 06/29/25 21:45 07/01/25 08:45 Metoprolol Tartrate 25 Mg Tablet PO 25 mg BID CHEY Administration Protocol Midodrine 2.5 mg 06/29/25 21:45 07/01/25 08:45 Midodrine Hcl 2.5 Mg Tablet PO 2.5 mg TID CHEY Administration Medical Decision Making Medical Decision Making [facility] Narrative: 69-year-old male with history of alcohol use disorder, orthostatic hypotension, recent admission here for elevated LFTs, orthostatic hypotension presenting to the ER from home for evaluation of left lower leg swelling and pain, mostly involving the left ankle for the last 1 week. No injury or trauma. He was recently hospitalized and has 3+ pitting edema. Concern for acute DVT so lower extremity Doppler was performed. This was negative for acute blood clot. He has a BNP of 8 100s. He had recent cardiac workup showing hyperdynamic EF of 70% with impaired relaxation filling pattern consistent with diastolic dysfunction. He is on room air, no respiratory distress, does not appear to be acutely volume overloaded where he would require admission for IV diuresis. He is unable to bear weight on the left leg due to pain and swelling. Will proceed with PT evaluation, case management. Will wrap the leg for compression, will elevate, will give dose of p.o. Lasix to assist in gentle volume removal. Patient and son at the bedside were updated on results and plan, they are in agreement. Differential Diagnosis Differential Diagnoses: The differential diagnosis associated with the presentation includes Acute DVT, lymphedema, peripheral vascular disease, cellulitis, heart failure exacerbation, volume overload, electrolyte abnormality, metabolic derangement Admission/Observation Consideration of admission/observation: Escalation of care including admission/observation considered Lab Data [facility] Lab Attestation statement: I reviewed the patient's lab results. Stable anemia, improvement in metabolic derangement and abnormal LFTs 06/29/25 12:44 06/29/25 12:44 Labs: Lab Results 06/29/25 06/29/25 06/29/25 Range/Units 12:44 12:44 12:44 WBC 8.4 (4.8-10.8) X10*3/uL RBC 2.60 L (4.60-5.80) X10*6/uL Hgb 9.0 L (14.0-18.0) g/dl Hct 27.2 L (42.0-52.0) % MCV 104.6 H (80.0-98.0) fL MCH 34.6 H (27.0-33.0) pg MCHC 33.1 (31.0-36.0) g/dl RDW 15.0 (11.0-16.0) % Plt Count 263 D (160-400) X10*3/uL MPV 9.8 (9.4-12.4) fL Immature Gran % (Auto) 0.5 H (0.0-0.4) % Neut % (Auto) 74.4 H (45-73) % Lymph % (Auto) 13.2 L (20-40) % Mcmullen % (Auto) 11.0 (2-11) % Eos % (Auto) 0.5 (0-4) % Baso % (Auto) 0.4 (0-2) % Lymph # (Auto) 1.1 L (1.2-4.9) X10*3/uL Mcmullen # (Auto) 0.9 (0.1-1.2) X10*3/uL Eos # (Auto) 0.0 (0.0-0.4) X10*3/uL Baso # (Auto) 0.0 (0.0-0.2) X10*3/uL Abs Immat Gran (auto) 0.04 H (0.00-0.03) X10*3/uL Absolute Neuts (auto) 6.3 (2.0-8.3) x10*3/uL Absolute Nucleated RBC 0.000 (0.0-0.012) X10*3/uL Nucleated RBC % (auto) 0.0 (0.0-0.2) /100WBC Sodium Cancelled 137 Potassium Cancelled 4.9 D Chloride Cancelled Carbon Dioxide Anion Gap BUN Creatinine Estim Creat Clear Calc Estimated GFR Random Glucose Calcium Magnesium Total Bilirubin Direct Bilirubin AST ALT Alkaline Phosphatase Total Creatine Kinase Troponin I High Sens (<3.5-35.0) ng/L NT-Pro-B Natriuret Pep (<300) pg/mL Total Protein Albumin TSH (0.32-4.0) uIU/mL Urine Color Urine Appearance Urine pH (5.0-9.0) Ur Specific Spiro (1.005-1.025) Urine Protein (Neg-Trace) mg/dL Urine Glucose (UA) (Negative) mg/dL Urine Ketones (Negative) mg/dL Urine Blood (Negative) Urine Nitrite (Negative) Ur Leukocyte Esterase (Negative) Urine Opiates Screen (Not Detect) Ur Buprenorphine Scrn (Not Detect) ng/mL Ur Oxycodone Screen (Not Detect) ng/mL Urine Methadone Screen (Not Detect) ng/mL Urine Fentanyl Screen (Not Detect) Ur Barbiturates Screen (Not Detect) Ur Phencyclidine Scrn (Not Detect) Ur Amphetamines Screen (Not Detect) U Benzodiazepines Scrn (Not Detect) Urine Cocaine Screen (Not Detect) U Marijuana (THC) Screen (Not Detect) Ethyl Alcohol mg/dL Influenza Type A (PCR) (Negative) Influenza Type B (PCR) (Negative) RSV RNA Qual (PCR) (Negative) SARS-CoV-2 RNA (RT-PCR) (Negative) 06/29/25 06/29/25 06/29/25 Range/Units 12:44 12:44 12:44 WBC (4.8-10.8) X10*3/uL RBC (4.60-5.80) X10*6/uL Hgb (14.0-18.0) g/dl Hct (42.0-52.0) % MCV (80.0-98.0) fL MCH (27.0-33.0) pg MCHC (31.0-36.0) g/dl RDW (11.0-16.0) % Plt Count (160-400) X10*3/uL MPV (9.4-12.4) fL Immature Gran % (Auto) (0.0-0.4) % Neut % (Auto) (45-73) % Lymph % (Auto) (20-40) % Mcmullen % (Auto) (2-11) % Eos % (Auto) (0-4) % Baso % (Auto) (0-2) % Lymph # (Auto) (1.2-4.9) X10*3/uL Mcmullen # (Auto) (0.1-1.2) X10*3/uL Eos # (Auto) (0.0-0.4) X10*3/uL Baso # (Auto) (0.0-0.2) X10*3/uL Abs Immat Gran (auto) (0.00-0.03) X10*3/uL Absolute Neuts (auto) (2.0-8.3) x10*3/uL Absolute Nucleated RBC (0.0-0.012) X10*3/uL Nucleated RBC % (auto) (0.0-0.2) /100WBC Sodium Potassium Chloride 107 Carbon Dioxide Cancelled 22 Anion Gap Cancelled 13 BUN Cancelled Creatinine Estim Creat Clear Calc Estimated GFR Random Glucose Calcium Magnesium Total Bilirubin Direct Bilirubin AST ALT Alkaline Phosphatase Total Creatine Kinase Troponin I High Sens (<3.5-35.0) ng/L NT-Pro-B Natriuret Pep (<300) pg/mL Total Protein Albumin TSH (0.32-4.0) uIU/mL Urine Color Urine Appearance Urine pH (5.0-9.0) Ur Specific Spiro (1.005-1.025) Urine Protein (Neg-Trace) mg/dL Urine Glucose (UA) (Negative) mg/dL Urine Ketones (Negative) mg/dL Urine Blood (Negative) Urine Nitrite (Negative) Ur Leukocyte Esterase (Negative) Urine Opiates Screen (Not Detect) Ur Buprenorphine Scrn (Not Detect) ng/mL Ur Oxycodone Screen (Not Detect) ng/mL Urine Methadone Screen (Not Detect) ng/mL Urine Fentanyl Screen (Not Detect) Ur Barbiturates Screen (Not Detect) Ur Phencyclidine Scrn (Not Detect) Ur Amphetamines Screen (Not Detect) U Benzodiazepines Scrn (Not Detect) Urine Cocaine Screen (Not Detect) U Marijuana (THC) Screen (Not Detect) Ethyl Alcohol mg/dL Influenza Type A (PCR) (Negative) Influenza Type B (PCR) (Negative) RSV RNA Qual (PCR) (Negative) SARS-CoV-2 RNA (RT-PCR) (Negative) 06/29/25 06/29/25 06/29/25 Range/Units 12:44 12:44 12:44 WBC (4.8-10.8) X10*3/uL RBC (4.60-5.80) X10*6/uL Hgb (14.0-18.0) g/dl Hct (42.0-52.0) % MCV (80.0-98.0) fL MCH (27.0-33.0) pg MCHC (31.0-36.0) g/dl RDW (11.0-16.0) % Plt Count (160-400) X10*3/uL MPV (9.4-12.4) fL Immature Gran % (Auto) (0.0-0.4) % Neut % (Auto) (45-73) % Lymph % (Auto) (20-40) % Mcmullen % (Auto) (2-11) % Eos % (Auto) (0-4) % Baso % (Auto) (0-2) % Lymph # (Auto) (1.2-4.9) X10*3/uL Mcmullen # (Auto) (0.1-1.2) X10*3/uL Eos # (Auto) (0.0-0.4) X10*3/uL Baso # (Auto) (0.0-0.2) X10*3/uL Abs Immat Gran (auto) (0.00-0.03) X10*3/uL Absolute Neuts (auto) (2.0-8.3) x10*3/uL Absolute Nucleated RBC (0.0-0.012) X10*3/uL Nucleated RBC % (auto) (0.0-0.2) /100WBC Sodium Potassium Chloride Carbon Dioxide Anion Gap BUN 9 Creatinine Cancelled 0.72 Estim Creat Clear Calc Cancelled 107.8 Estimated GFR Cancelled Random Glucose Calcium Magnesium Total Bilirubin Direct Bilirubin AST ALT Alkaline Phosphatase Total Creatine Kinase Troponin I High Sens (<3.5-35.0) ng/L NT-Pro-B Natriuret Pep (<300) pg/mL Total Protein Albumin TSH (0.32-4.0) uIU/mL Urine Color Urine Appearance Urine pH (5.0-9.0) Ur Specific Spiro (1.005-1.025) Urine Protein (Neg-Trace) mg/dL Urine Glucose (UA) (Negative) mg/dL Urine Ketones (Negative) mg/dL Urine Blood (Negative) Urine Nitrite (Negative) Ur Leukocyte Esterase (Negative) Urine Opiates Screen (Not Detect) Ur Buprenorphine Scrn (Not Detect) ng/mL Ur Oxycodone Screen (Not Detect) ng/mL Urine Methadone Screen (Not Detect) ng/mL Urine Fentanyl Screen (Not Detect) Ur Barbiturates Screen (Not Detect) Ur Phencyclidine Scrn (Not Detect) Ur Amphetamines Screen (Not Detect) U Benzodiazepines Scrn (Not Detect) Urine Cocaine Screen (Not Detect) U Marijuana (THC) Screen (Not Detect) Ethyl Alcohol mg/dL Influenza Type A (PCR) (Negative) Influenza Type B (PCR) (Negative) RSV RNA Qual (PCR) (Negative) SARS-CoV-2 RNA (RT-PCR) (Negative) 06/29/25 06/29/25 06/29/25 Range/Units 12:44 12:44 12:44 WBC (4.8-10.8) X10*3/uL RBC (4.60-5.80) X10*6/uL Hgb (14.0-18.0) g/dl Hct (42.0-52.0) % MCV (80.0-98.0) fL MCH (27.0-33.0) pg MCHC (31.0-36.0) g/dl RDW (11.0-16.0) % Plt Count (160-400) X10*3/uL MPV (9.4-12.4) fL Immature Gran % (Auto) (0.0-0.4) % Neut % (Auto) (45-73) % Lymph % (Auto) (20-40) % Mcmullen % (Auto) (2-11) % Eos % (Auto) (0-4) % Baso % (Auto) (0-2) % Lymph # (Auto) (1.2-4.9) X10*3/uL Mcmullen # (Auto) (0.1-1.2) X10*3/uL Eos # (Auto) (0.0-0.4) X10*3/uL Baso # (Auto) (0.0-0.2) X10*3/uL Abs Immat Gran (auto) (0.00-0.03) X10*3/uL Absolute Neuts (auto) (2.0-8.3) x10*3/uL Absolute Nucleated RBC (0.0-0.012) X10*3/uL Nucleated RBC % (auto) (0.0-0.2) /100WBC Sodium Potassium Chloride Carbon Dioxide Anion Gap BUN Creatinine Estim Creat Clear Calc Estimated GFR > 60 Random Glucose Cancelled 100 Calcium Cancelled 8.9 Magnesium Cancelled Total Bilirubin Direct Bilirubin AST ALT Alkaline Phosphatase Total Creatine Kinase Troponin I High Sens (<3.5-35.0) ng/L NT-Pro-B Natriuret Pep (<300) pg/mL Total Protein Albumin TSH (0.32-4.0) uIU/mL Urine Color Urine Appearance Urine pH (5.0-9.0) Ur Specific Spiro (1.005-1.025) Urine Protein (Neg-Trace) mg/dL Urine Glucose (UA) (Negative) mg/dL Urine Ketones (Negative) mg/dL Urine Blood (Negative) Urine Nitrite (Negative) Ur Leukocyte Esterase (Negative) Urine Opiates Screen (Not Detect) Ur Buprenorphine Scrn (Not Detect) ng/mL Ur Oxycodone Screen (Not Detect) ng/mL Urine Methadone Screen (Not Detect) ng/mL Urine Fentanyl Screen (Not Detect) Ur Barbiturates Screen (Not Detect) Ur Phencyclidine Scrn (Not Detect) Ur Amphetamines Screen (Not Detect) U Benzodiazepines Scrn (Not Detect) Urine Cocaine Screen (Not Detect) U Marijuana (THC) Screen (Not Detect) Ethyl Alcohol mg/dL Influenza Type A (PCR) (Negative) Influenza Type B (PCR) (Negative) RSV RNA Qual (PCR) (Negative) SARS-CoV-2 RNA (RT-PCR) (Negative) 06/29/25 06/29/25 06/29/25 Range/Units 12:44 12:44 12:44 WBC (4.8-10.8) X10*3/uL RBC (4.60-5.80) X10*6/uL Hgb (14.0-18.0) g/dl Hct (42.0-52.0) % MCV (80.0-98.0) fL MCH (27.0-33.0) pg MCHC (31.0-36.0) g/dl RDW (11.0-16.0) % Plt Count (160-400) X10*3/uL MPV (9.4-12.4) fL Immature Gran % (Auto) (0.0-0.4) % Neut % (Auto) (45-73) % Lymph % (Auto) (20-40) % Mcmullen % (Auto) (2-11) % Eos % (Auto) (0-4) % Baso % (Auto) (0-2) % Lymph # (Auto) (1.2-4.9) X10*3/uL Mcmullen # (Auto) (0.1-1.2) X10*3/uL Eos # (Auto) (0.0-0.4) X10*3/uL Baso # (Auto) (0.0-0.2) X10*3/uL Abs Immat Gran (auto) (0.00-0.03) X10*3/uL Absolute Neuts (auto) (2.0-8.3) x10*3/uL Absolute Nucleated RBC (0.0-0.012) X10*3/uL Nucleated RBC % (auto) (0.0-0.2) /100WBC Sodium Potassium Chloride Carbon Dioxide Anion Gap BUN Creatinine Estim Creat Clear Calc Estimated GFR Random Glucose Calcium Magnesium 2.1 Total Bilirubin Cancelled 0.7 Direct Bilirubin Cancelled 0.3 AST Cancelled ALT Alkaline Phosphatase Total Creatine Kinase Troponin I High Sens (<3.5-35.0) ng/L NT-Pro-B Natriuret Pep (<300) pg/mL Total Protein Albumin TSH (0.32-4.0) uIU/mL Urine Color Urine Appearance Urine pH (5.0-9.0) Ur Specific Spiro (1.005-1.025) Urine Protein (Neg-Trace) mg/dL Urine Glucose (UA) (Negative) mg/dL Urine Ketones (Negative) mg/dL Urine Blood (Negative) Urine Nitrite (Negative) Ur Leukocyte Esterase (Negative) Urine Opiates Screen (Not Detect) Ur Buprenorphine Scrn (Not Detect) ng/mL Ur Oxycodone Screen (Not Detect) ng/mL Urine Methadone Screen (Not Detect) ng/mL Urine Fentanyl Screen (Not Detect) Ur Barbiturates Screen (Not Detect) Ur Phencyclidine Scrn (Not Detect) Ur Amphetamines Screen (Not Detect) U Benzodiazepines Scrn (Not Detect) Urine Cocaine Screen (Not Detect) U Marijuana (THC) Screen (Not Detect) Ethyl Alcohol mg/dL Influenza Type A (PCR) (Negative) Influenza Type B (PCR) (Negative) RSV RNA Qual (PCR) (Negative) SARS-CoV-2 RNA (RT-PCR) (Negative) 06/29/25 06/29/25 06/29/25 Range/Units 12:44 12:44 12:44 WBC (4.8-10.8) X10*3/uL RBC (4.60-5.80) X10*6/uL Hgb (14.0-18.0) g/dl Hct (42.0-52.0) % MCV (80.0-98.0) fL MCH (27.0-33.0) pg MCHC (31.0-36.0) g/dl RDW (11.0-16.0) % Plt Count (160-400) X10*3/uL MPV (9.4-12.4) fL Immature Gran % (Auto) (0.0-0.4) % Neut % (Auto) (45-73) % Lymph % (Auto) (20-40) % Mcmullen % (Auto) (2-11) % Eos % (Auto) (0-4) % Baso % (Auto) (0-2) % Lymph # (Auto) (1.2-4.9) X10*3/uL Mcmullen # (Auto) (0.1-1.2) X10*3/uL Eos # (Auto) (0.0-0.4) X10*3/uL Baso # (Auto) (0.0-0.2) X10*3/uL Abs Immat Gran (auto) (0.00-0.03) X10*3/uL Absolute Neuts (auto) (2.0-8.3) x10*3/uL Absolute Nucleated RBC (0.0-0.012) X10*3/uL Nucleated RBC % (auto) (0.0-0.2) /100WBC Sodium Potassium Chloride Carbon Dioxide Anion Gap BUN Creatinine Estim Creat Clear Calc Estimated GFR Random Glucose Calcium Magnesium Total Bilirubin Direct Bilirubin AST 40 H ALT Cancelled 30 Alkaline Phosphatase Cancelled 110 Total Creatine Kinase Cancelled Troponin I High Sens (<3.5-35.0) ng/L NT-Pro-B Natriuret Pep (<300) pg/mL Total Protein Albumin TSH (0.32-4.0) uIU/mL Urine Color Urine Appearance Urine pH (5.0-9.0) Ur Specific Spiro (1.005-1.025) Urine Protein (Neg-Trace) mg/dL Urine Glucose (UA) (Negative) mg/dL Urine Ketones (Negative) mg/dL Urine Blood (Negative) Urine Nitrite (Negative) Ur Leukocyte Esterase (Negative) Urine Opiates Screen (Not Detect) Ur Buprenorphine Scrn (Not Detect) ng/mL Ur Oxycodone Screen (Not Detect) ng/mL Urine Methadone Screen (Not Detect) ng/mL Urine Fentanyl Screen (Not Detect) Ur Barbiturates Screen (Not Detect) Ur Phencyclidine Scrn (Not Detect) Ur Amphetamines Screen (Not Detect) U Benzodiazepines Scrn (Not Detect) Urine Cocaine Screen (Not Detect) U Marijuana (THC) Screen (Not Detect) Ethyl Alcohol mg/dL Influenza Type A (PCR) (Negative) Influenza Type B (PCR) (Negative) RSV RNA Qual (PCR) (Negative) SARS-CoV-2 RNA (RT-PCR) (Negative) 06/29/25 06/29/25 06/29/25 Range/Units 12:44 12:44 12:44 WBC (4.8-10.8) X10*3/uL RBC (4.60-5.80) X10*6/uL Hgb (14.0-18.0) g/dl Hct (42.0-52.0) % MCV (80.0-98.0) fL MCH (27.0-33.0) pg MCHC (31.0-36.0) g/dl RDW (11.0-16.0) % Plt Count (160-400) X10*3/uL MPV (9.4-12.4) fL Immature Gran % (Auto) (0.0-0.4) % Neut % (Auto) (45-73) % Lymph % (Auto) (20-40) % Mcmullen % (Auto) (2-11) % Eos % (Auto) (0-4) % Baso % (Auto) (0-2) % Lymph # (Auto) (1.2-4.9) X10*3/uL Mcmullen # (Auto) (0.1-1.2) X10*3/uL Eos # (Auto) (0.0-0.4) X10*3/uL Baso # (Auto) (0.0-0.2) X10*3/uL Abs Immat Gran (auto) (0.00-0.03) X10*3/uL Absolute Neuts (auto) (2.0-8.3) x10*3/uL Absolute Nucleated RBC (0.0-0.012) X10*3/uL Nucleated RBC % (auto) (0.0-0.2) /100WBC Sodium Potassium Chloride Carbon Dioxide Anion Gap BUN Creatinine Estim Creat Clear Calc Estimated GFR Random Glucose Calcium Magnesium Total Bilirubin Direct Bilirubin AST ALT Alkaline Phosphatase Total Creatine Kinase 22 L Troponin I High Sens 11.9 (<3.5-35.0) ng/L NT-Pro-B Natriuret Pep 887.5 H (<300) pg/mL Total Protein Cancelled 7.6 Albumin Cancelled 3.7 TSH 3.98 (0.32-4.0) uIU/mL Urine Color Urine Appearance Urine pH (5.0-9.0) Ur Specific Spiro (1.005-1.025) Urine Protein (Neg-Trace) mg/dL Urine Glucose (UA) (Negative) mg/dL Urine Ketones (Negative) mg/dL Urine Blood (Negative) Urine Nitrite (Negative) Ur Leukocyte Esterase (Negative) Urine Opiates Screen (Not Detect) Ur Buprenorphine Scrn (Not Detect) ng/mL Ur Oxycodone Screen (Not Detect) ng/mL Urine Methadone Screen (Not Detect) ng/mL Urine Fentanyl Screen (Not Detect) Ur Barbiturates Screen (Not Detect) Ur Phencyclidine Scrn (Not Detect) Ur Amphetamines Screen (Not Detect) U Benzodiazepines Scrn (Not Detect) Urine Cocaine Screen (Not Detect) U Marijuana (THC) Screen (Not Detect) Ethyl Alcohol < 10 mg/dL Influenza Type A (PCR) (Negative) Influenza Type B (PCR) (Negative) RSV RNA Qual (PCR) (Negative) SARS-CoV-2 RNA (RT-PCR) (Negative) 06/29/25 06/29/25 Range/Units 12:46 16:32 WBC (4.8-10.8) X10*3/uL RBC (4.60-5.80) X10*6/uL Hgb (14.0-18.0) g/dl Hct (42.0-52.0) % MCV (80.0-98.0) fL MCH (27.0-33.0) pg MCHC (31.0-36.0) g/dl RDW (11.0-16.0) % Plt Count (160-400) X10*3/uL MPV (9.4-12.4) fL Immature Gran % (Auto) (0.0-0.4) % Neut % (Auto) (45-73) % Lymph % (Auto) (20-40) % Mcmullen % (Auto) (2-11) % Eos % (Auto) (0-4) % Baso % (Auto) (0-2) % Lymph # (Auto) (1.2-4.9) X10*3/uL Mcmullen # (Auto) (0.1-1.2) X10*3/uL Eos # (Auto) (0.0-0.4) X10*3/uL Baso # (Auto) (0.0-0.2) X10*3/uL Abs Immat Gran (auto) (0.00-0.03) X10*3/uL Absolute Neuts (auto) (2.0-8.3) x10*3/uL Absolute Nucleated RBC (0.0-0.012) X10*3/uL Nucleated RBC % (auto) (0.0-0.2) /100WBC Sodium Potassium Chloride Carbon Dioxide Anion Gap BUN Creatinine Estim Creat Clear Calc Estimated GFR Random Glucose Calcium Magnesium Total Bilirubin Direct Bilirubin AST ALT Alkaline Phosphatase Total Creatine Kinase Troponin I High Sens (<3.5-35.0) ng/L NT-Pro-B Natriuret Pep (<300) pg/mL Total Protein Albumin TSH (0.32-4.0) uIU/mL Urine Color Yellow Urine Appearance Clear Urine pH 8.0 (5.0-9.0) Ur Specific Spiro 1.010 (1.005-1.025) Urine Protein Negative (Neg-Trace) mg/dL Urine Glucose (UA) Negative (Negative) mg/dL Urine Ketones Negative (Negative) mg/dL Urine Blood Negative (Negative) Urine Nitrite Negative (Negative) Ur Leukocyte Esterase Negative (Negative) Urine Opiates Screen Not Detected (Not Detect) Ur Buprenorphine Scrn Not Detected (Not Detect) ng/mL Ur Oxycodone Screen Not Detected (Not Detect) ng/mL Urine Methadone Screen Not Detected (Not Detect) ng/mL Urine Fentanyl Screen Not Detected (Not Detect) Ur Barbiturates Screen Not Detected (Not Detect) Ur Phencyclidine Scrn Not Detected (Not Detect) Ur Amphetamines Screen Not Detected (Not Detect) U Benzodiazepines Scrn Not Detected (Not Detect) Urine Cocaine Screen Not Detected (Not Detect) U Marijuana (THC) Screen Not Detected (Not Detect) Ethyl Alcohol mg/dL Influenza Type A (PCR) NEGATIVE (Negative) Influenza Type B (PCR) NEGATIVE (Negative) RSV RNA Qual (PCR) NEGATIVE (Negative) SARS-CoV-2 RNA (RT-PCR) NEGATIVE (Negative) Independent Interpretation I performed an independent interpretation of an: EKG and Ultrasound Interpretation: EKG with normal sinus rhythm, premature atrial complexes, ventricular rate 81 beats per minute, no ST segment elevations or depressions, normal QTC, normal QRS No visible blood clot on ultrasound Radiology Impression Discussion of test interpretation with radiology: I have reviewed the radiologist's reading. Independent Historian Clinical information obtained from an independent historian. History obtained from or confirmed by: EMS and Other (Adult son at the bedside) External Record Review External record reviewed: Inpatient record and Prior outpatient labs Prescription Management I considered prescription management with: Pain Medication and Other (Diuretic) Chronic Conditions Patient?s care impacted by: Other (Alcohol use disorder orthostatic hypotension) Critical Care Time Critical Care Time Critical Care Time: No Discharge Plan Discharge Clinical Impression: Edema of left lower leg Patient Disposition: Xfer Inpatient Rehab Fac Transfer Details: [facility] Instructions: Leg Edema (ED) Additional Instructions: You are being discharged to [facility] for short term rehab. Return with any new/worsening symptoms. In the case of an emergency call 911. Prescriptions: No Action ibuprofen 200 mg Tablet 400 mg PO Q6H PRN (Reason: Pain) Centrum Minis Men 50 Plus [id number] mcg Tablet 1 tab PO DAILY midodrine 2.5 mg Tablet 2.5 mg PO TID Qty: 180 0RF cyanocobalamin (vitamin B-12) [Vitamin B-12] 1,000 mcg Tablet 1,000 mcg PO DAILY 90 Days Qty: 90 0RF ergocalciferol (vitamin D2) [Vitamin D2] 1,250 mcg (50,000 unit) Capsule 1,250 mcg PO Tu@1600 90 Days Qty: 13 0RF fludrocortisone 0.1 mg Tablet 0.1 mg PO DAILY 90 Days Qty: 90 0RF metoprolol tartrate 25 mg Tablet 25 mg PO BID 90 Days Qty: 180 0RF Protocol: Hold for SBP/HR < HOLD for SBP < : 90 HOLD for HR < : 60 Referrals: [facility] [Outside] Referral Note: [phone] Discharge Date/Time: 07/01/25 11:08 Print Language: Pashto
[2025-06-29 12:54] LABS: Hematocrit 27.2 % (42.0-52.0); Hemoglobin 9.0 g/dl (14.0-18.0); Imm Gran Abs Auto 0.04 X10*3/uL (0.00-0.03); Imm Gran Pct Auto 0.5 % (0.0-0.4); Lymphocytes Absolute Auto 1.1 X10*3/uL (1.2-4.9); MANUAL DIFF FLAG NO; Mean Corpuscular HGB Conc 33.1 g/dl (31.0-36.0); Mean Corpuscular Hemoglobin 34.6 pg (27.0-33.0); Mean Corpuscular Volume 104.6 fL (80.0-98.0); NRBC Abs Auto 0.000 X10*3/uL (0.0-0.012); NRBC Pct Auto 0.0 /100WBC (0.0-0.2); Platelet Count 263 X10*3/uL (160-400); Red Blood Count 2.60 X10*6/uL (4.60-5.80); White Blood Count 8.4 X10*3/uL (4.8-10.8)
[2025-06-29 12:55] LABS: Appearance Urine Clear; Glucose Urine UA Negative (Negative); PH 8.0 (5.0-9.0); Specific Gravity - Urine 1.010 (1.005-1.025)
[2025-06-29 13:04] LABS: Cannabinoid Screen Urine Not Detected (Not Detect)
[2025-06-29 13:16] LABS: NT Pro B Type Natriuretic Pept 887.5 pg/mL (<300); Troponin-I High Sensitivity 11.9 ng/L (<3.5-35.0)
[2025-06-29 13:22] LABS: Alanine Aminotransferase 30 U/L (0-40); Albumin Level 3.7 g/dL (3.5-5.0); Alkaline Phosphatase 110 U/L (39-117); Anion Gap 13 (12-20); Aspartate Amino Transferase 40 U/L (5-37); Blood Urea Nitrogen 9 mg/dL (9-16); Calcium 8.9 mg/dL (8.4-10.2); Carbon Dioxide 22 mmol/L (22-29); Chloride 107 mmol/L (96-108); Creatinine Clr Calc Pharmacy 107.8; Estimated Glomerular Filt Rate > 60; Magnesium 2.1 mg/dL (1.6-2.6); Potassium 4.9 mmol/L (3.3-5.1); Sodium 137 mmol/L (135-145); Total Protein 7.6 g/dL (6.5-8.0)
--- NOTE | 2025-06-29 16:39 | PC.NURSE ---
compression stocking applied to R leg, Yoandy wrap applied to left ankle/lower leg.
--- NOTE | 2025-06-29 16:45 | PC.NURSE ---
Report called to overflow RN, pt will go to overflow 3.
--- NOTE | 2025-06-29 16:47 | PC.NURSE ---
Received RN report from Jd Bryant RN by phone. Preparing to move from ED [address] to Overflow 3. Will assume care of this patient upon arrival to Overflow ED.
[2025-06-29 17:21] LABS: Resp Syncy Virus RNA Qual PCR NEGATIVE (Negative); SARS COV2 PCR INHOUSE NEGATIVE (Negative)
--- NOTE | 2025-06-29 22:09 | PHA.MEDREC ---
Addendum entered by Deo Spencer PharmD 06/29/25 22:11: reviewed Original Note: Pharmacy Consult ? Medication Reconciliation Pharmacy has reviewed the medication reconciliation done by nursing. patient is no longer taking Allopurinol 100 mg, Folic acid 1 mg, Magnesium Oxide 400 mg and Vitamin B-1 100 mg.
--- NOTE | 2025-06-29 22:19 | MHC.CM.ED ---
CM met with patient. His son lives with him. He has a walking stick, but feels like he needs 2 canes. Pt has L leg pain that is making ambulating difficult. Pt is agreeable to PT assessment and STR referrals locally. Pt does not have a PCP. Moved to [facility] from [place] recently. Will need referral to PCP. Pt states he does not have a formal HCP, but his son Jus Beatty Jr. is his HCP. CM will complete aa HCP with the patient. Pt has no home services.Pt has [employer].
[2025-06-30] VITALS (12 sets, daily range): BP systolic 100–160; BP diastolic 52–94; PULSE 73–91; RESP 17–18; TEMP 36.9–37.3; O2SAT 96–98
--- NOTE | 2025-06-30 09:41 | PC.NURSE ---
Pt has been resting, was seen by PT and was unable to complete orthostatics d/t weakness. Pt states he should be able to walk to bathroom but will have to use a commode insteady. is axox3. c/o RLE pain foot to knee. medicated for pain. ate breakfast
--- NOTE | 2025-06-30 09:46 | MHC.CM.ED ---
Patient remains in ER overflow. Physical therapy eval completed. Short term rehab is recommended. Met with patient in regards to discharge planning. HCP completed, signed and witnessed. Original given to patient. Copy placed in chart. Bed offers discussed with patient. [facility] in the process of obtaining ins auth. Continue to monitor for d/c needs.
--- NOTE | 2025-06-30 09:50 | PC.NURSE ---
pt is very unsteady on feet. full 2 person assist to commode
--- NOTE | 2025-06-30 13:50 | PC.NURSE ---
Update to son on phone.
--- NOTE | 2025-06-30 16:01 | MHC.CM.ED ---
Received notification from [facility] that auth is anticipated to be available tomorrow morning. Requesting transport be arranged for 07/01 at 11am. [facility] booked. Med nec with chart. Patient, Milagros VELOZ and Kristy LOPEZ aware. Continue to monitor for d/c needs.
--- NOTE | 2025-06-30 16:17 | PC.NURSE ---
Care of Pt assumed at 3p. Pt resting quietly and watching TV. BP 141/85: spoke with CARLA Kumar to review BP reading. Orders to administer Midodrine. Medication unavailable in pyixs. Pharmacy contacted and reports machine will be loaded as mediation is scheduled TID. Awaiting stock of medication in pyxis; will administer once available.
--- NOTE | 2025-06-30 17:42 | MHC.CM.ED ---
CM met with patient to discuss discharge planning. Pt to d/c to [facility] 07/01 at 11am. Primary RN aware. Pt tells CM that he has a cardiology appointment with [facility] [place]/01 at 10:30 am. Primary RN aware. Contact information for cardiology practice given to patient. Explained to patient that he would need to reschedule his appointment. Explained to patient that he would probably be in rehab for 1-2 weeks.
[2025-07-01 06:25] VITALS: BP 150/80; PULSE 80; TEMP 37.2; O2SAT 98
[2025-07-01 08:31] VITALS: BP 141/74; PULSE 90; RESP 16; TEMP 36.7; O2SAT 96
[2025-07-01 08:45] VITALS: BP 141/74; PULSE 90
--- NOTE | 2025-07-01 11:08 | PC.NURSE ---
Verbal report given via phone to receiving RN at [facility]
== END 2025-07-01 11:08 ==
PROVIDERS: Physician Assistant; Emergency Provider Emergency Medicine
DX: R60.0 Localized edema (principal); R53.1 Weakness; M79.605 Pain in left leg; R26.81 Unsteadiness on feet; R94.31 Abnormal electrocardiogram [ECG] [EKG]; R06.02 Shortness of breath; Z79.899 Other long term (current) drug therapy; Z03.818 Encounter for observation for suspected exposure to other biological agents ruled out; Z51.81 Encounter for therapeutic drug level monitoring
CPT/HCPCS: 36415; 80048; 80076; 80307; 81003; 82550; 83735; 83880; 84443; 84484; 85025; 87637; 93005; 93971; 97162; 99285

== ENCOUNTER → 2025-06-29 12:22 | Outpatient (BNV) | payer MEDICARE, SELFPAY | PROVIDERS: Emergency Provider Emergency Medicine; Visit Provider Internal Medicine | DX: I49.1 Atrial premature depolarization (principal) | CPT/HCPCS: 93010 ==

== ENCOUNTER → 2025-06-29 12:32 | Outpatient (BNV) | payer MEDICARE, SELFPAY | PROVIDERS: Emergency Provider Emergency Medicine; Visit Provider Radiology Diagnostic Radiology | DX: R60.0 Localized edema (principal) | CPT/HCPCS: 93971 ==

== ENCOUNTER 2025-08-07 14:51 | Outpatient (AMB) | payer MEDICARE, SELFPAY ==
[2025-08-07 15:13] VITALS: BP 140/110; PULSE 88; TEMP 36.3; O2SAT 98
--- NOTE | 2025-08-07 15:13 | A.OFFPC_ITS ---
Vital Signs 08/07/25 15:13 Weight 222 lb 4 oz BP 140/110 H Blood Pressure Location Lt brachial Position Sitting Pulse 88 Pulse Source Pulse Oximeter Temp 97.3 F Temp Source Temporal Artery Scan Pulse Oximetry (%) 98 Oxygen Delivery Method Room Air Intake Visit Reasons: [facility]/ [facility] Allergies No Known Allergies Allergy (Verified 08/07/25 15:13) Medication List - Last Reconciled 08/07/25 by Yasmani Molina MD allopurinol 300 mg PO DAILY ergocalciferol (vitamin D2) (Vitamin D2) 1,250 mcg PO Tu@1600 90 days ibuprofen 400 mg PO Q6H PRN metoprolol tartrate 25 mg See Protocol PO BID 90 days [id number] mcg (Centrum Minis Men 50 Plus) 1 tab PO DAILY Tobacco use date assessed: 08/07/25 Fall risk assessment: 2 + Falls in past year Last assessed Fall Risk: 08/07/25 Dental Screening Dental Screen Date: 08/07/25 Did you have a dental visit in the last 12 months?: No Did you have a dental problem in the last 6 months where you did not have access to dental care?: No Was dental information given to patient?: No HPI HPI Comments History of Present Illness Details The patient is a 69-year-old male with PMH of gout, orthostatic hypotension, HTN, presenting to [facility], for medication review, and for evaluation of persistent foot pain and swelling related to gout. He reports a recent gout flare-up that caused significant swelling and pain in both feet, particularly the right foot, which made him unable to walk, touch his feet, or climb stairs. The patient states that the severe pain led to a collapse, after which he was hospitalized and then spent a month in rehabilitation for physical therapy. He w as not given a clear diagnosis for the cause of his collapse. Most likely related to orthostatic hypotension so he was started on Midodrine. However it was noted that his BP was elevated after oral rehydration requiring Metoprolol. The swelling has since decreased, but he continues to experience pain and tenderness. His medication history includes allopurinol and colchicine for gout, and a recent 7-day course of oxycodone for pain, which has now concluded. He also mentions taking midodrine, fludrocortisone, gabapentin, and metoprolol, though he is unclear on the purpose of some of them. He has never had a colonoscopy. BP mildly elevated in clinic 140/110, HR 88. [facility] Medical History (Updated 08/08/25 @ 16:39 by Yasmani Molina MD) Gout HTN (hypertension) Social History Household Members: Children and Other Household Members Other:: Daughter in law Housing: Homeless Do you presently have visiting nurse or other home services: No Alcohol intake: former Patient Tobacco Use Status: Tobacco use Unknown Tobacco use type: Cigarette e-Cigarette/Vaping Use: Never Used Second Hand Smoke Exposure: No Advance Directives Date on File: 06/30/25 service: No Current occupational status: retired Cognitive needs: No Hearing needs: No Vision needs: No Questionnaire PHQ-9 Over the last 2 weeks, how often have you been bothered by any of the following problems? 1. Little interest or pleasure in doing things: not at all 2. Feeling down, depressed, or hopeless: not at all 3. Trouble falling or staying asleep, or sleeping too much: not at all 4. Feeling tired or having little energy: nearly every day 5. Poor appetite or overeating: not at all 6. Feeling bad about yourself - or that you are a failure or have let yourself or your family down: not at all 7. Trouble concentrating on things, such as reading the newspaper or watching television: not at all 8. Moving or speaking so slowly that other people could have noticed. Or the opposite - being so fidgety or restless that you have been moving around a lot more than usual: not at all 9. Thoughts that you would be better off or of hurting yourself in some way: not at all Total score: 3 Depression Screening Interpretation: Negative Depression Screening Done: Yes Source: Developed by Drs. Jakub Macias, Sheila Tyson, Haider Villagran and colleagues, with an educational bea from [email or web address]. Thrive Questionnaire Date Thrive assessed: 06/07/25 I am a: Patient What is your living situation today?: I have a steady place to live Within the past 12 months, did the food you bought not last and you didn't have the money to get more?: Never true Within the past 12 months, did you worry whether your food would run out before you got money to buy more?: Never true Do you have trouble paying for medicines?: No Do you have trouble getting transportation to medical appointments?: No Do you have trouble paying your heating and electricity bill?: No Do you have trouble taking care of your child, family member or friend?: No Do you have trouble with day-to-day activities such as bathing, preparing meals, shopping, managing finances, etc.?: No Are you currently unemployed and looking for a job?: No Are you interested in more education?: No Please select the resources that you would like help with: None Currently or been in a relationship where the following occur: No concerns reported THRIVE Score: 0 AUDIT C Alcohol Use Questionnaire (AUDIT-C) 1. How often do you have a drink containing alcohol?: Never Total Score: 0 TATE-7 AMB Questionnaire TATE-7 Date TATE - 7 assessed: 08/07/25 Feeling nervous, anxious, or on edge: 0 = Not at all Not being able to stop or control worryin = Not at all Worrying too much about different things: 0 = Not at all Trouble relaxin = Not at all Being so restless that it is hard to sit still: 0 = Not at all Becoming easily annoyed or irritable: 0 = Not at all Feeling afraid as if something awful might happen: 0 = Not at all Total TATE-7 score (0-4 normal; 5-9 mild; 10-14 moderate; 15-21 severe): 0 Source: Developed by Drs. Jakub Macias, Sheila Tyson, Haider Villagran and colleagues, with an educational bea from [email or web address]. Review of Systems Const Details: Positives besides what was mentioned in HPI are in BOLD Constitutional: No Weight Change, No Fever, No Chills, No Night Sweats, No Fatigue, No Malaise ENT/Mouth: No Hearing Changes, No Ear Pain, No Nasal Congestion, No Sinus Pain, No Hoarseness, No sore throat, No Rhinorrhea, No Swallowing Difficulty Eyes: No Eye Pain, No Swelling, No Redness, No Foreign Body, No Discharge, No Vision Changes Cardiovascular: No Chest Pain, No SOB, No PND, No Dyspnea on Exertion, No Orthopnea, No Claudication, No Edema, No Palpitations Respiratory: No Cough, No Sputum, No Wheezing, No Smoke Exposure, No Dyspnea Gastrointestinal: No Nausea, No Vomiting, No Diarrhea, No Constipation, No Pain, No Heartburn, No Anorexia, No Dysphagia, No Hematochezia, No Melena, No Flatulence, No Jaundice Genitourinary: No Dysmenorrhea, No DUB, No Dyspareunia, No Dysuria, No Urinary Frequency, No Hematuria, No Urinary Incontinence, No Urgency, No Flank Pain, No Urinary Flow Changes, No Hesitancy Musculoskeletal: No Arthralgias, No Myalgias, No Joint Swelling, No Joint Stiffness, No Back Pain, No Neck Pain, No Injury History Skin: No Skin Lesions, No Pruritis, No Hair Changes, No Breast/Skin Changes, No Nipple Discharge Neuro: No Weakness, No Numbness, No Paresthesias, No Loss of Consciousness, No Syncope, No Dizziness, No Headache, No Coordination Changes, No Recent Falls Psych: No Anxiety/Panic, No Depression, No Insomnia, No Personality Changes, No Delusions, No Rumination, No SI/HI/AH/VH, No Social Issues, No Memory Changes, No Violence/Abuse Hx., No Eating Concerns Heme/Lymph: No Bruising, No Bleeding, No Transfusions History, No Lymphadenopathy Endocrine: No Polyuria, No Polydipsia, No Temperature Intolerance Physical exam (Primary Care) Vital Signs: Last Vital Signs Temp 97.3 F 08/07/25 15:13 Pulse 88 08/07/25 15:13 BP 140/110 H 08/07/25 15:13 Pulse Ox 98 08/07/25 15:13 Oxygen Delivery Method Room Air 08/07/25 15:13 Tobacco/Smoking Status: Tobacco use Status Tobacco use date assessed 08/07/25 08/07/25 15:23 Patient Tobacco Use Status Tobacco use Unknown 08/07/25 15:23 Tobacco use type Cigarette 08/07/25 15:23 e-Cigarette/Vaping Use Never Used 08/07/25 15:23 PHQ-9: PHQ-9 Score PHQ-9: Total score 3 08/07/25 16:03 Depression Screening Interpretation: Negative Thrive Assessment: Date of Thrive Assessment Date Thrive assessed 06/07/25 08/07/25 15:23 Currently or been in a relationship where the following occur: No concerns reported Const Other: Pertinent findings are in BOLD GENERAL APPEARANCE NAD, activity normal for age, well developed/ well nourished, no cyanosis, pallor, or diaphoresis. EYES lids/conjunctiva normal. EARS/NOSE/THROAT Mucous membranes moist, nares normal, lips/teeth normal uvula midline without oral pharyngeal erythema, exudate or swelling TMs normal bilaterally. No lymphangitis/lymphedema. HEAD/NECK normocephalic atraumatic, no facial trauma, neck is supple. RESPIRATORY respiratory effort normal, speaks in full sentences, no tripod pos ition, no accessory muscle use. Lungs clear to auscultation without rhonchi, wheezes, rales CARDIAC Regular rate and rhythm, no edema. ABDOMINAL Soft, ND/NT. No evidence of fluid wave. No pulsatile masses on exam, rebound tenderness, Evangelista sign or pain over Mcburney's point. MUSCLES/EXTREMITIES No abnormal range of motion, no swelling. Right foot swelling and tenderness. SKIN Warm, pink and dry. No rashes, dermatoses, petechiae or lesions. NEUROLOGICAL Speech is clear and appropriate. Normal level of consciousness. Gait and coordination are normal. 5/5 strength in all extremities. PSYCH Normal mood and affect. Judgement/competence is appropriate Office Procedures Flu Questionnaire Does the patient have a severe egg allergy?: No Does the patient have severe life threatening allergies?: No Does the patient have a fever or illness today?: No Has the patient ever had Guillain-Venus Syndrome?: No Has the patient ever had any past reaction to a flu shot?: No Immunizations Fluarix [id number] (PF) 45 mcg (15 mcg x 3)/0.5 mL IM syringe Performing Provider: Yasmani Molina MD [facility] Administered by: Gayla Berger CMA on 08/07/25 16:03 Dose Route Admin Location Dispensed Lot Number Expiration Date [facility] As[employer] Install[employer] General 0.5 mL IM Left Deltoid 0.5 mL [id number] 03/30/26 [id number] [employer] VIS Given Date VIS Provided VIS Publication Date 08/07/25 Single Vaccine 24 Eligibility Eligibility Date Funding Source Not [facility] Eligible 08/07/25 Private pneumoc 20-leeroy conj-dip cr(PF) 0.5 mL IM syringe Performing Provider: Yasmani Molina MD Performing [facility] Administered by: Gayla Berger CMA on 08/07/25 16:03 Dose Route Admin Location Dispensed Lot Number Expiration Date [employer] 0.5 mL IM Left Deltoid 0.5 mL [id number] 06/01/26 [employer] Total Dispensed Waste 0.5 mL 0 % VIS Given Date VIS Provided VIS Publication Date 08/07/25 Single Vaccine 25 Eligibility Eligibility Date Funding Source Not [facility] Eligible 08/07/25 Private Coding Level of Care Code New Pt Level 4 (73845) New Pt Prev Care >65yr (10063) Diagnoses Healthcare maintenance Z00.00 Orthostasis I95.1 Abnormal LFTs R79.89 Primary hypertension I10 Hypertension type: primary hypertension 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 Shingles 2 doses when >50 yo. Next visit. COVID: two doses. Completed. Pneumococcal: >50 yo. 18-49 with CKD, lung disease, weakened immune system, Heart disease, DM, cochlear implant. Today. Flu vaccine: Today. Tdap: every 10 years. Next visit. Colonoscopy: 45-75. Ordered today. AAA: 65 -75. Next [address] CT lun - 80. Not indicated. PSA: 50 -70 every two years. HIV: Ordered today. HCV: Ordered today. (2) Orthostasis: Code(s): I95.1 - Orthostatic hypotension Category: Medical Plan: We will hold midodrine as the patient's BP is mildly elevated in clinic. Patient was also taking Metoprolol. Advised the patient about monitoring his blood pressure at home. (3) Abnormal LFTs: Code(s): R79.89 - Other specified abnormal findings of blood chemistry Category: Medical Plan: Resolved. Continue to monitor with labs. We will order Chronic liver disease W-U if labs continue to be elevated. (4) HTN (hypertension): Code(s): I10 - Essential (primary) hypertension Category: Medical Qualifiers: Hypertension type: primary hypertension Qualified Code(s): I10 - Essential (primary) hypertension Plan: We will hold Metoprolol as the patient was taking both Midodrine and Metoprolol. Most recent hospitlaization was most likely related to heavy alcohol intake and dehydration. Patient orthostasis improved after oral rehydration. Advised the patient to monitor his BP at home. (5) Anemia: Comment: 11/02 Alcohol use Code(s): D64.9 - Anemia, unspecified Category: Medical Qualifiers: Anemia type: folate deficiency Folate deficiency anemia type: dietary Qualified Code(s): D52.0 - Dietary folate deficiency anemia Plan: - Due to low blood counts on previous labs, the patient is prescribed folic acid 1 mg daily, thiamine 100 mg daily, and vitamin B12. - Repeat labs will be ordered to be completed before the next visit. (6) Foot pain: Code(s): M79.673 - Pain in unspecified foot Category: Medical Qualifiers: Laterality: right Qualified Code(s): M79.671 - Pain in right foot Plan: - Continue allopurinol for gout management. - For pain control, prescribed Tylenol and ibuprofen to be alternated every 6-8 hours. - Oxycodone will be discontinued due to risk of dependence. - Will order imaging of the foot to further evaluate the cause of pain. (7) Gout: Code(s): M10.9 - Gout, unspecified Category: Medical Qualifiers: Gout site: foot Gout etiology: drug-induced Chronicity: chronic Laterality: right Presence of tophus: without tophus Qualified Code(s): M1A.2710 - Drug-induced chronic gout, right ankle and foot, without tophus (tophi) Plan: Continue Allopurinol. Advised on continue Alcohol abstinence. (8) Alcohol abuse: Comment: c/b Macrocytic anemia Code(s): F10.10 - Alcohol abuse, uncomplicated Category: Social Hx Plan: Continue abstinence. Plan I discussed with the patient that we would be establishing care today. We reviewed his medications, and I explained the rationale for stopping midodrine, fludrocortisone, Metoprolol, and gabapentin while continuing allopurinol. I addressed his foot pain, explaining that we will avoid using oxycodone due to its addictive nature and will instead manage his pain with alternating doses of Tylenol and ibuprofen. I informed him that his previous labs showed low blood counts, for which I prescribed folic acid, thiamine, and vitamin B12. I emphasized the importance of preventative health screenings and vaccines; he agreed to receive the flu and pneumonia shots today and to be scheduled for a colonoscopy. I have ordered imaging of his foot, along with repeat blood work that includes HIV and Hepatitis C screening, to be done before his follow-up visit next week. Orders: Orders Complete Blood Count no Diff 08/07/25. - Encounter for general adult medical examination without abnormal findings Hemoglobin A1c 08/07/25 Z. - Encounter for general adult medical examination without abnormal findings Lipid Panel 08/07/25 Z.00 - Encounter for general adult medical examination without abnormal findings Vitamin D 25-OH Total 08/07/25 Z. - Encounter for general adult medical examination without abnormal findings Hepatitis C Antibody Reflex 08/07/25 Z.00 - Encounter for general adult medical examination without abnormal findings HIV Ab/Ag 08/07/25 Z.00 - Encounter for general adult medical examination without abnormal findings Prostate Specific Antigen 08/07/25 Z.00 - Encounter for general adult medical examination without abnormal findings Influenza [id number] Immunization 08/07/25 Z23 - Encounter for immunization IRON PROFILE Today D52.0 - Dietary folate deficiency anemia, R79.89 - Other specified abnormal findings of blood chemistry Reticulocyte Count Today D52.0 - Dietary folate deficiency anemia, R79.89 - O ther specified abnormal findings of blood chemistry Hepatitis B Core Antibody Today R79.89 - Other specified abnormal findings of blood chemistry Comprehensive Met. Panel 08/07/25 Z00.00 - Encounter for general adult medical examination without abnormal findings Vitamin B12 and Folate 08/07/25 D64.9 - Anemia, unspecified, Z00. - Encounter for general adult medical examination without abnormal findings TSH reflex Free T4 08/07/25 Z00.00 - Encounter for general adult medical examination without abnormal findings Pneumococcal 20 Immunization 08/07/25 Z23 - Encounter for immunization Uric Acid Today D52.0 - Dietary folate deficiency anemia, R79.89 - Other specified abnormal findings of blood chemistry Ferritin Today D52.0 - Dietary folate deficiency anemia, R79.89 - Other specified abnormal findings of blood chemistry Methylmalonic Acid Today D64.9 - Anemia, unspecified, R79.89 - Other specified abnormal findings of blood chemistry Homocysteine Today D64.9 - Anemia, unspecified, R79.89 - Other specified abnormal findings of blood chemistry Hepatitis B Surface Antibody Today R79.89 - Other specified abnormal findings of blood chemistry Hepatitis B Surface Antigen Today R79.89 - Other specified abnormal findings of blood chemistry XR foot RT min 3V Today M79.671 - Pain in right foot Referrals Open Access Screening Colonoscopy Referral Z12.11 - Encounter for screening for malignant neoplasm of colon, Z12.12 - Encounter for screening for malignant neoplasm of rectum Medications: New acetaminophen (Tylenol) 325 mg PO QID PRN 60 tabs 2RF pain folic acid 1 mg PO DAILY 90 tabs 3RF acetaminophen (Tylenol) 325 mg PO QID PRN 60 tabs 2RF pain allopurinol 300 mg PO DAILY 60 tabs 2RF gout pain thiamine HCl (vitamin B1) 100 mg PO DAILY 60 caps 3RF ibuprofen 400 mg (2 x 200 mg) PO Q6H PRN 60 tabs 3RF Pain thiamine HCl (vitamin B1) 100 mg PO DAILY 60 caps 3RF folic acid 1 mg PO DAILY 90 tabs 3RF Refilled ergocalciferol (vitamin D2) (Vitamin D2) 1,250 mcg PO Tu@1600 13 caps 0RF 90 days ibuprofen 400 mg (2 x 200 mg) PO Q6H PRN 60 tabs 3RF Pain Discontinued metoprolol tartrate Discontinued Reason: Doctor's Order 25 mg See Protocol PO BID 90 days 180 tabs 0RF
== END 2025-08-07 16:06 | disposition home or self-care (01) ==
LOC: HO.HMCH 14:51
PROVIDERS: Visit Provider Internal Medicine
DX: Z23 Encounter for immunization (principal)

== ENCOUNTER → 2025-08-07 14:51 | Outpatient (BNVA) | payer MEDICARE, SELFPAY | PROVIDERS: Visit Provider Internal Medicine | DX: Z00.00 Encounter for general adult medical examination without abnormal findings (principal); I10 Essential (primary) hypertension; M10.9 Gout, unspecified; I95.1 Orthostatic hypotension; R79.89 Other specified abnormal findings of blood chemistry; D52.0 Dietary folate deficiency anemia; Z23 Encounter for immunization | CPT/HCPCS: 90471; 90472; 90656; 90677; 96127; 99202; 99387 ==

== ENCOUNTER 2025-08-10 11:41 | Outpatient (REF) | payer MEDICARE, SELFPAY ==
[2025-08-10 12:15] LABS: Hematocrit 31.4 % (42.0-52.0); Hemoglobin 9.6 g/dl (14.0-18.0); Mean Corpuscular HGB Conc 30.6 g/dl (31.0-36.0); Mean Corpuscular Hemoglobin 29.8 pg (27.0-33.0); Mean Corpuscular Volume 97.5 fL (80.0-98.0); NRBC Abs Auto 0.000 X10*3/uL (0.0-0.012); NRBC Pct Auto 0.0 /100WBC (0.0-0.2); Platelet Count 197 X10*3/uL (160-400); Red Blood Count 3.22 X10*6/uL (4.60-5.80); Reticulocytes Absolute 0.073 X10*6/uL (0.026-0.095); White Blood Count 4.0 X10*3/uL (4.8-10.8)
[2025-08-10 13:06] LABS: HBS Num1 2.02 mIU/mL (0-7.99); HBc Num1 0.06 S/CO (0.00-0.79); HBsAGNum1 0.66 S/CO (0.00-0.99); HIV Num 1 0.03 S/CO (0.00-0.99); Hepatitis B Surface Antigen Negative (Negative); ~HepC Num1 0.11 S/CO (0.00-0.79); ~Hepatitis B Surface Antibody NONREACTIVE (Nonreactive); ~Hepatitis C Antibody Nonreactive (Nonreactive)
[2025-08-10 13:13] LABS: Folate 10.0 ng/mL (> or = 4.0); Prostate Specific Antigen 0.78 ng/mL (<0.05-4.0); Vitamin B12 350 pg/mL (200-900)
--- OUTSIDE RECORDS SUMMARY | 2025-08-10 14:07 | XMS_ITS | Encounter Summary ---
Author Organization [facility] Address [address] [place] [address] Care Team Providers Care Customer Supply Chain Analyst Name Role Phone Gui Watters MD Primary Care Provider [phone] Encounter Details Date Type Department Care Team (Late st Contact Info) Description 07/16/[address] [facility] [address] [facility] [place] [address] Gui Watters MD [address] [place] [id number] Anemia, unspecified Social History Tobacco Use Types Packs/Day Years Used Date Smoking Tobacco: Never Assessed Sex and Gender Information Value Date Recorded Sex Assigned at Not on file Legal Sex Male 9:10 AM EDT Gender Identity Not on file Sexual Orientation Not on file documented as of this encounter Plan of Treatment Not on file documented as of this encounter Procedures Procedure Name Priority Date/Time Associated Diagnosis Comments COMPLETE BLOOD COUNT Routine 07/16/2025 8:28 AM EDT Anemia, unspecified BASIC METABOLIC PANEL Routine 07/16/2025 8:28 AM EDT Anemia, unspecified documented in this encounter Results * (ABNORMAL) Complete blood count (07/16/2025 8:28 AM EDT) WBC 6.9 4.8 - 10.8 K/mcL LAB HEMETOLOGY METHOD 07/16/2025 12:00 PM EDT [facility] RBC 2.70(L) 4.50 - 5.50 M/mcL LAB HEMETOLOGY METHOD 07/16/2025 12:00 PM EDT [facility] Hemoglobin 8.6(L) 13.5 - 17.5 g/dL LAB HEMETOLOGY METHOD 07/16/2025 12:00 PM EDT [facility] Hematocrit 27.2(L) 42.0 - 54.0 % LAB HEMETOLOGY METHOD 07/16/2025 12:00 PM [facility] MCV 100.4(H) 79.0 - 98.0 FL LAB HEMETOLOGY METHOD 07/16/2025 12:00 PM EDT [facility] MCH 31.7 27.0 - 32.0 pcg LAB HEMETOLOGY METHOD 07/16/2025 12:00 PM [facility] MCHC 31.6(L) 32.0 - 37.0 g/dL LAB HEMETOLOGY METHOD 07/16/2025 12:00 PM [facility] RDW 17.1(H) 11.0 - 15.0 % LAB HEMETOLOGY METHOD 07/16/2025 12:00 PM [facility] Platelets 434(H) 130 - 400 K/mcL LAB HEMETOLOGY METHOD 07/16/2025 12:00 PM [facility] MPV 9.6 7.0 - 11.0 FL LAB HEMETOLOGY METHOD 07/16/2025 12:00 PM [facility] NRBC 0.0 <1.0 % LAB HEMETOLOGY METHOD 07/16/2025 12:00 PM [facility] NRBC Absolute 0.00 <0.10 K/mcL LAB HEMETOLOGY METHOD 07/16/2025 12:00 PM [facility] Blood Venous blood specimen / Unknown Venipuncture / Unknown 07/16/2025 8:28 AM EDT 07/16/2025 11:41 AM EDT us Gui Watters MD LAB BLOOD ORDERABLES Final Result [facility] [address] [place] [address], * Basic metabolic panel (07/16/2025 8:28 AM EDT) Sodium 139 133 - 145 mmol/L LAB CHEMISTRY METHOD 07/16/2025 12:37 PM [facility] Potassium 4.3 3.5 - 5.5 mmol/L LAB CHEMISTRY METHOD 07/16/2025 12:37 PM [facility] Chloride 107 96 - 110 mmol/L LAB CHEMISTRY METHOD 07/16/2025 12:37 PM [facility] CO2 26 21 - 32 mmol/L LAB CHEMISTRY METHOD 07/16/2025 12:37 PM [facility] Anion Gap 6 3 - 11 LAB CHEMISTRY METHOD 07/16/2025 12:37 PM [facility] Glucose 73 70 - 100 mg/dL LAB CHEMISTRY METHOD 07/16/2025 12:37 PM [facility] BUN 10 5 - 25 mg/dL LAB CHEMISTRY METHOD 07/16/2025 12:37 PM [facility] Creatinine 0.86 0.70 - 1.30 mg/dL LAB CHEMISTRY METHOD 07/16/2025 12:37 PM [facility] eGFR 94 >=60 mL/min/1. 73m2 LAB CHEMISTRY METHOD 07/16/2025 12:37 PM [facility] Comment:Calculation based on the Chronic Kidney Disease Epidemiology Collaboration (CKD-EPI) equation refit without adjustment for race. BUN/Creatinine Ratio 11.6 LAB CHEMISTRY METHOD 07/16/2025 12:37 PM [facility] Calcium 9.5 8.5 - 10.5 mg/dL LAB CHEMISTRY METHOD 07/16/2025 12:37 PM [facility] Blood Venous blood specimen / Unknown Venipuncture / Unknown 07/16/2025 8:28 AM EDT 07/16/2025 11:41 AM EDT Gui Watters MD LAB BLOOD ORDERABLES Final Result [facility] [address] [place] [address], documented in this encounter Visit Diagnoses Diagnosis Anemia, unspecified documented in this encounter Care Teams Customer Supply Chain Analyst Relationship Specialty Start Date End Date Gui Watters MD [address] [place] [address] PCP - General Internal Medicine 07/02/25 documented as of this encounter
--- OUTSIDE RECORDS SUMMARY | 2025-08-10 14:07 | XMS_ITS | Encounter Summary ---
Author Organization [facility] Address [address] [place] [address] Care Team Providers Care Broadcast Designer Name Role Phone Gui Watters MD Primary Care Provider +1- [phone] Encounter Details Date Type Department Care Team (Late st Contact Info) Description 07/29/2025 Lab Requisition [facility] - Main Lab [address] [place] [address] Gui Watters MD [address] [place] [id number] Anemia, unspecified Social History Tobacco Use Types Packs/Day Years Used Date Smoking Tobacco: Never Assessed Sex and Gender Information Value Date Recorded Sex Assigned at Not on file Legal Sex Male 9:10 AM EDT Gender Identity Not on file Sexual Orientation Not on file documented as of this encounter Plan of Treatment Not on file documented as of this encounter Visit Diagnoses Diagnosis Anemia, unspecified documented in this encounter Care Teams Broadcast Designer Relationship Specialty Start Date End Date Gui Watters MD [address] [place] [address] PCP - General Internal Medicine 07/02/25 documented as of this encounter
--- OUTSIDE RECORDS SUMMARY | 2025-08-10 14:07 | XMS_ITS | Encounter Summary ---
Author Organization [employer] Address [address] [place] [address] Care Team Providers Care Legal Document Assistant Name Role Phone Gui Watters MD Primary Care Provider +1- [phone] Encounter Details Date Type Department Care Team (Late st Contact Info) Description 07/02/2025 Lab Requisition [facility] - Main Lab [address] [facility] [place] [address] Gui Watters MD [address] [place] [address] Anemia, unspecified Social History Tobacco Use Types [...] Procedure Name Priority Date/Time Associated Diagnosis Comments THYROID STIMULATING HORMONE WITH REFLEX TO FREE T4 AND FREE T3 Routine 07/02/2025 7:35 AM EDT Anemia, unspecified COMPLETE BLOOD COUNT Routine 07/02/2025 7:35 AM EDT Anemia, unspecified URIC ACID Routine 07/02/2025 7:35 AM EDT Anemia, unspecified COMPREHENSIVE METABOLIC PANEL Routine 07/02/2025 7:35 AM EDT Anemia, unspecified documented in this encounter Results * Uric acid (07/02/2025 7:35 AM EDT) Uric Acid 5.4 3.7 - 9.2 mg/dL LAB CHEMISTRY METHOD 07/02/2025 10:28 AM EDT [facility] Blood Venous blood specimen / Unknown Venipuncture / Unknown 07/02/2025 7:35 AM EDT 07/02/2025 9:15 AM EDT us Gui Watters MD LAB BLOOD ORDERABLES Final Result Performing Organization Address [facility]/ZIP Co de Phone Number [facility] [address] [place] [address], [place] [phone] * Thyroid stimulating hormone with reflex to free t4 and free t3 (07/02/2025 7:35 AM EDT) Pathologist [facility] TSH 3.41 0.40 - 4.00 mcIU/mL LAB CHEMISTRY METHOD 07/02/2025 11:25 AM EDT [facility] Blood Venous blood specimen / Unknown Venipuncture / Unknown 07/02/2025 7:35 AM EDT 07/02/2025 9:15 AM EDT us Gui Watters MD LAB BLOOD ORDERABLES Final Result Performing Organization Address [facility]/ZIP Co de Phone Number [facility] [address] [place] [address], [place] [phone] * (ABNORMAL) Comprehensive metabolic panel (07/02/2025 7:35 AM EDT) Sodium 135 133 - 145 mmol/L LAB CHEMISTRY METHOD 07/02/2025 10:31 AM EDT [facility] Potassium 3.7 3.5 - 5.5 mmol/L LAB CHEMISTRY METHOD 07/02/2025 10:31 AM EDT [facility] Chloride 105 96 - 110 mmol/L LAB CHEMISTRY METHOD 07/02/2025 10:31 AM EDT [facility] CO2 22 21 - 32 mmol/L LAB CHEMISTRY METHOD 07/02/2025 10:31 AM EDT [facility] Anion Gap 8 3 - 11 LAB CHEMISTRY METHOD 07/02/2025 10:31 AM [facility] Glucose 105(H) 70 - 100 mg/dL LAB CHEMISTRY METHOD 07/02/2025 10:31 AM [facility] BUN 10 5 - 25 mg/dL LAB CHEMISTRY METHOD 07/02/2025 10:31 AM [facility] Creatinine 0.71 0.70 - 1.30 mg/dL LAB CHEMISTRY METHOD 07/02/2025 10:31 AM [facility] eGFR 99 >=60 mL/min/1. 73m2 LAB CHEMISTRY METHOD 07/02/2025 10:31 AM [facility] Comment:Calculation based on the Chronic Kidney Disease Epidemiology Collaboration (CKD-EPI) equation refit without adjustment for race. BUN/Creatinine Ratio 14.1 LAB CHEMISTRY METHOD 07/02/2025 10:31 AM [facility] Calcium 8.8 8.5 - 10.5 mg/dL LAB CHEMISTRY METHOD 07/02/2025 10:31 AM [facility] AST (SGOT) 39 10 - 42 unit/L LAB CHEMISTRY METHOD 07/02/2025 10:31 AM [facility] ALT (SGPT) 39 10 - 60 unit/L LAB CHEMISTRY METHOD 07/02/2025 10:31 AM [facility] Alkaline Phosphatase 109 42 - 121 unit/L LAB CHEMISTRY METHOD 07/02/2025 10:31 AM [facility] Total Protein 6.6 6.0 - 8.0 g/dL LAB CHEMISTRY METHOD 07/02/2025 10:31 AM [facility] Albumin 2.8(L) 3.2 - 5.0 g/dL LAB CHEMISTRY METHOD 07/02/2025 10:31 AM [facility] Total Bilirubin 0.6 0.0 - 1.4 mg/dL LAB CHEMISTRY METHOD 07/02/2025 10:31 AM [facility] Blood Venous blood specimen / Unknown Venipuncture / Unknown 07/02/2025 7:35 AM EDT 07/02/2025 9:15 AM EDT Gui Watters MD LAB BLOOD ORDERABLES Final Result [facility] [address] [place] [address], * (ABNORMAL) Complete blood count (07/02/2025 7:35 AM EDT) WBC 9.1 4.8 - 10.8 K/mcL LAB HEMETOLOGY METHOD 07/02/2025 9:43 AM EDT [facility] RBC 2.80(L) 4.50 - 5.50 M/mcL LAB HEMETOLOGY METHOD 07/02/2025 9:43 AM EDT [facility] Hemoglobin 9.2(L) 13.5 - 17.5 g/dL LAB HEMETOLOGY METHOD 07/02/2025 9:43 AM [facility] Hematocrit 28.2(L) 42.0 - 54.0 % LAB HEMETOLOGY METHOD 07/02/2025 9:43 AM [facility] MCV 101.8(H) 79.0 - 98.0 FL LAB HEMETOLOGY METHOD 07/02/2025 9:43 AM EDT [facility] MCH 33.2(H) 27.0 - 32.0 pcg LAB HEMETOLOGY METHOD 07/02/2025 9:43 AM EDT [facility] MCHC 32.6 32.0 - 37.0 g/dL LAB HEMETOLOGY METHOD 07/02/2025 9:43 AM [facility] RDW 14.9 11.0 - 15.0 % LAB HEMETOLOGY METHOD 07/02/2025 9:43 AM EDT [facility] Platelets 263 130 - 400 K/mcL LAB HEMETOLOGY METHOD 07/02/2025 9:43 AM EDT [facility] MPV 10.9 7.0 - 11.0 FL LAB HEMETOLOGY METHOD 07/02/2025 9:43 AM EDT [facility] NRBC 0.0 <1.0 % LAB HEMETOLOGY METHOD 07/02/2025 9:43 AM EDT [facility] NRBC Absolute 0.00 <0.10 K/mcL LAB HEMETOLOGY METHOD 07/02/2025 9:43 AM EDT [facility] Blood Venous blood specimen / Unknown Venipuncture / Unknown 07/02/2025 7:35 AM EDT 07/02/2025 9:15 AM EDT Gui Watters MD LAB BLOOD ORDERABLES Final Result [facility] [address] [place] [address], documented in this encounter Visit Diagnoses Diagnosis Anemia, unspecified documented in this encounter Care Teams Legal Document Assistant Relationship Specialty Start Date End Date Gui Watters MD [address] [place] [id number] PCP - General Internal Medicine 07/02/25 documented as of this encounter
--- OUTSIDE RECORDS SUMMARY | 2025-08-10 14:07 | XMS_ITS | Encounter Summary ---
Author Organization [facility] Address [address] [place] [address] Care Team Providers Care Ordnance Officer Name Role Phone Gui Watters MD Primary Care Provider +1- [phone] Encounter Details Date Type Department Care Team (Late st Contact Info) Description 07/22/2025 Lab Requisition [facility] [address] [facility] [place] [address] Gui Watters MD [address] [place] [address] Anemia, unspecified Social History Tobacco Use Types [...] Associated Diagnosis Comments COMPLETE BLOOD COUNT Routine 07/23/2025 10:09 AM EDT Anemia, unspecified BASIC METABOLIC PANEL Routine 07/23/2025 10:09 AM EDT Anemia, unspecified documented in this encounter Results * (ABNORMAL) Complete blood count (07/23/2025 10:09 AM EDT) WBC 5.9 4.8 - 10.8 K/mcL LAB HEMETOLOGY METHOD 07/23/2025 11:54 AM EDT [facility] RBC 3.00(L) 4.50 - 5.50 M/mcL LAB HEMETOLOGY METHOD 07/23/2025 11:54 AM EDT [facility] Hemoglobin 9.5(L) 13.5 - 17.5 g/dL LAB HEMETOLOGY METHOD 07/23/2025 11:54 AM EDT [facility] Hematocrit 30.9(L) 42.0 - 54.0 % LAB HEMETOLOGY METHOD 07/23/2025 11:54 AM EDT [facility] MCV 101.6(H) 79.0 - 98.0 FL LAB HEMETOLOGY METHOD 07/23/2025 11:54 AM EDT [facility] MCH 31.3 27.0 - 32.0 pcg LAB HEMETOLOGY METHOD 07/23/2025 11:54 AM EDT [facility] MCHC 30.7(L) 32.0 - 37.0 g/dL LAB HEMETOLOGY METHOD 07/23/2025 11:54 AM [facility] RDW 18.0(H) 11.0 - 15.0 % LAB HEMETOLOGY METHOD 07/23/2025 11:54 AM EDT [facility] Platelets 333 130 - 400 K/mcL LAB HEMETOLOGY METHOD 07/23/2025 11:54 AM T [facility] MPV 9.8 7.0 - 11.0 FL LAB HEMETOLOGY METHOD 07/23/2025 11:54 AM [facility] NRBC 0.0 <1.0 % LAB HEMETOLOGY METHOD 07/23/2025 11:54 AM EDT [facility] NRBC Absolute 0.00 <0.10 K/mcL LAB HEMETOLOGY METHOD 07/23/2025 11:54 AM [facility] Blood Venous blood specimen / Unknown Venipuncture / Unknown 07/23/2025 10:09 AM EDT 07/23/2025 11:39 AM EDT us Gui Watters MD LAB BLOOD ORDERABLES Final Result [facility] [address] [place] [address], [place] [phone] * (ABNORMAL) Basic metabolic panel (07/23/2025 10:09 AM EDT) Sodium 140 133 - 145 mmol/L LAB CHEMISTRY METHOD 07/23/2025 1:36 PM [facility] Potassium 3.8 3.5 - 5.5 mmol/L LAB CHEMISTRY METHOD 07/23/2025 1:36 PM [facility] Chloride 107 96 - 110 mmol/L LAB CHEMISTRY METHOD 07/23/2025 1:36 PM [facility] CO2 26 21 - 32 mmol/L LAB CHEMISTRY METHOD 07/23/2025 1:36 PM [facility] Anion Gap 7 3 - 11 LAB CHEMISTRY METHOD 07/23/2025 1:36 PM [facility] Glucose 103(H) 70 - 100 mg/dL LAB CHEMISTRY METHOD 07/23/2025 1:36 PM [facility] BUN 16 5 - 25 mg/dL LAB CHEMISTRY METHOD 07/23/2025 1:36 PM [facility] Creatinine 0.79 0.70 - 1.30 mg/dL LAB CHEMISTRY METHOD 07/23/2025 1:36 PM [facility] eGFR 96 >=60 mL/min/1. 73m2 LAB CHEMISTRY METHOD 07/23/2025 1:36 PM [facility] Comment:Calculation based on the Chronic Kidney Disease Epidemiology Collaboration (CKD-EPI) equation refit without adjustment for race. BUN/Creatinine Ratio 20.3 LAB CHEMISTRY METHOD 07/23/2025 1:36 PM [facility] Calcium 9.0 8.5 - 10.5 mg/dL LAB CHEMISTRY METHOD 07/23/2025 1:36 PM [facility] Blood Venous blood specimen / Unknown Venipuncture / Unknown 07/23/2025 10:09 AM EDT 07/23/2025 11:39 AM EDT Gui Watters MD LAB BLOOD ORDERABLES Final Result [facility]) [facility] [address] [place] [address], documented in this encounter Visit Diagnoses Diagnosis Anemia, unspecified documented in this encounter Care Teams Ordnance Officer Relationship Specialty Start Date End Date Gui Watters MD [address] [place] [address] PCP - General Internal Medicine 07/02/25 documented as of this encounter
--- OUTSIDE RECORDS SUMMARY | 2025-08-10 14:07 | XMS_ITS | Encounter Summary ---
Author Organization [facility] Address [address] [place] [address] Care Team Providers Care Toll Transmission Worker Name Role Phone Gui Watters MD Primary Care Provider +1- [phone] Encounter Details Date Type Department Care Team (Late st Contact Info) Description 07/09/2025 Lab Requisition [facility] - Main Lab [address] [place] [address] Gui Watters MD [address] [place] [id number] Anemia, unspecified Social History Tobacco Use Types [...] unspecified documented in this encounter Care Teams Toll Transmission Worker Relationship Specialty Start Date End Date Gui Watters MD [address] [place] [address] PCP - General Internal Medicine 07/02/25 documented as of this encounter
--- OUTSIDE RECORDS SUMMARY | 2025-08-10 14:07 | XMS_ITS | Encounter Summary ---
Author Organization [facility] Address [address] [place] [address] Care Team Providers Care Television Reporter Name Role Phone Gui Watters MD Primary Care Provider +1- [phone] Encounter Details Date Type Department Care Team (Late st Contact Info) Description 07/08/2025 Lab Requisition [facility] - Main Lab [address] [facility] [place] [address] Gui Watters MD [address] [place] [address] Anemia, unspecified Social History Tobacco Use Types [...] Associated Diagnosis Comments COMPLETE BLOOD COUNT Routine 07/09/2025 9:12 AM EDT Anemia, unspecified COMPREHENSIVE METABOLIC PANEL Routine 07/09/2025 9:12 AM EDT Anemia, unspecified documented in this encounter Results * (ABNORMAL) Comprehensive metabolic panel (07/09/2025 9:12 AM EDT) Sodium 138 133 - 145 mmol/L LAB CHEMISTRY METHOD 07/09/2025 1:57 PM EDT [facility] Potassium 4.7 3.5 - 5.5 mmol/L LAB CHEMISTRY METHOD 07/09/2025 1:57 PM EDT [facility] Chloride 107 96 - 110 mmol/L LAB CHEMISTRY METHOD 07/09/2025 1:57 PM T [facility] CO2 16(L) 21 - 32 mmol/L LAB CHEMISTRY METHOD 07/09/2025 1:57 PM [facility] Anion Gap 15(H) 3 - 11 LAB CHEMISTRY METHOD 07/09/2025 1:57 PM [facility] Glucose 111(H) 70 - 100 mg/dL LAB CHEMISTRY METHOD 07/09/2025 1:57 PM [facility] BUN 13 5 - 25 mg/dL LAB CHEMISTRY METHOD 07/09/2025 1:57 PM [facility] Creatinine 0.78 0.70 - 1.30 mg/dL LAB CHEMISTRY METHOD 07/09/2025 1:57 PM [facility] eGFR 97 >=60 mL/min/1. 73m2 LAB CHEMISTRY METHOD 07/09/2025 1:57 PM [facility] Comment:Calculation based on the Chronic Kidney Disease Epidemiology Collaboration (CKD-EPI) equation refit without adjustment for race. BUN/Creatinine Ratio 16.7 LAB CHEMISTRY METHOD 07/09/2025 1:57 PM [facility] Calcium 8.7 8.5 - 10.5 mg/dL LAB CHEMISTRY METHOD 07/09/2025 1:57 PM [facility] AST (SGOT) 45(H) 10 - 42 unit/L LAB CHEMISTRY METHOD 07/09/2025 1:57 PM [facility] ALT (SGPT) 53 10 - 60 unit/L LAB CHEMISTRY METHOD 07/09/2025 1:57 PM [facility] Alkaline Phosphatase 120 42 - 121 unit/L LAB CHEMISTRY METHOD 07/09/2025 1:57 PM [facility] Total Protein 7.2 6.0 - 8.0 g/dL LAB CHEMISTRY METHOD 07/09/2025 1:57 PM [facility] Albumin 2.8(L) 3.2 - 5.0 g/dL LAB CHEMISTRY METHOD 07/09/2025 1:57 PM EDT [facility] Total Bilirubin 0.3 0.0 - 1.4 mg/dL LAB CHEMISTRY METHOD 07/09/2025 1:57 PM [facility] Blood Venous blood specimen / Unknown Venipuncture / Unknown 07/09/2025 9:12 AM EDT 07/09/2025 12:00 PM EDT Gui Watters MD LAB BLOOD ORDERABLES Final Result [facility] [address] [place] [address], * (ABNORMAL) Complete blood count (07/09/2025 9:12 AM EDT) WBC 6.7 4.8 - 10.8 K/mcL LAB HEMETOLOGY METHOD 07/09/2025 12:42 PM [facility] RBC 3.20(L) 4.50 - 5.50 M/mcL LAB HEMETOLOGY METHOD 07/09/2025 12:42 PM [facility] Hemoglobin 10.5(L) 13.5 - 17.5 g/dL LAB HEMETOLOGY METHOD 07/09/2025 12:42 PM [facility] Hematocrit 33.4(L) 42.0 - 54.0 % LAB HEMETOLOGY METHOD 07/09/2025 12:42 PM [facility] MCV 103.7(H) 79.0 - 98.0 FL LAB HEMETOLOGY METHOD 07/09/2025 12:42 PM [facility] MCH 32.6(H) 27.0 - 32.0 pcg LAB HEMETOLOGY METHOD 07/09/2025 12:42 PM [facility] MCHC 31.4(L) 32.0 - 37.0 g/dL LAB HEMETOLOGY METHOD 07/09/2025 12:42 PM EDT [facility] RDW 16.7(H) 11.0 - 15.0 % LAB HEMETOLOGY METHOD 07/09/2025 12:42 PM EDT [facility] Platelets 314 130 - 400 K/mcL LAB HEMETOLOGY METHOD 07/09/2025 12:42 PM EDT [facility] MPV 10.5 7.0 - 11.0 FL LAB HEMETOLOGY METHOD 07/09/2025 12:42 PM EDT [facility] NRBC 0.0 <1.0 % LAB HEMETOLOGY METHOD 07/09/2025 12:42 PM EDT [facility] NRBC Absolute 0.00 <0.10 K/mcL LAB HEMETOLOGY METHOD 07/09/2025 12:42 PM EDT [facility] Blood Venous blood specimen / Unknown Venipuncture / Unknown 07/09/2025 9:12 AM EDT 07/09/2025 12:00 PM EDT us Gui Watters MD LAB BLOOD ORDERABLES Final Result [facility] [address] [place] [address], documented in this encounter Visit Diagnoses Diagnosis Anemia, unspecified documented in this encounter Care Teams Television Reporter Relationship Specialty Start Date End Date Gui Watters MD [address] [place] [id number] PCP - General Internal Medicine 07/02/25 documented as of this encounter
--- OUTSIDE RECORDS SUMMARY | 2025-08-10 14:08 | XMS_ITS | Clinical Summary ---
Author Organization [address] [facility] Address [address] [place] [address] Phone Care Team Providers Care Vault Teller Name Role Phone Gui Watters MD Primary Care Provider [phone]- [phone] Encounters Date Type Department Care Team Description 07/29/2025 Lab Requisition [facility] Lab [address] [place] [address] Gui Watters MD Anemia, unspecified 07/22/2025 Lab Requisition [facility] Lab [address] [place] [address] Gui Watters MD Anemia, unspecified 07/16/2025 Lab Requisition [facility] Lab [address] [place] [address] Gui Watters MD Anemia, unspecified 07/09/2025 Lab Requisition [facility] Lab [address] [place] [address] Gui Watters MD Anemia, unspecified 07/08/2025 Lab Requisition [facility] Lab [address] [place] [address] Gui Watters MD Anemia, unspecified 07/02/2025 Lab Requisition [facility] Lab [address] [place] [address] Gui Watters MD Anemia, unspecified from Last 3 Months Social History Tobacco Use Types Packs/Day Years Used Date Smoking Tobacco: Never Assessed Sex and Gender Information Value Date Recorded Sex Assigned at Not on file Legal Sex Male 9:10 AM EDT Gender Identity Not on file Sexual Orientation Not on file Plan of Treatment Health Maintenance Due Date Last Done Comments Colorectal Cancer Screening: Colonoscopy 1955 DTaP,Tdap,and Td Vaccines (1 - Tdap) 1974 Pneumococcal Vaccine: 50+ Ye ars (1 of 1 - PCV) 2005 Zoster Vaccines (1 of 2) 2005 Depression Screening 10/01/2024 COVID-19 Vaccine (1 - 2023-2 5 season) 2025 Influenza Vaccine (#1) 2025 Abdominal Aortic Aneurysm (A AA) Screen 07/02/2025 Cholesterol Screening (Lipid Panel) 07/02/2025 Falls Risk Assessment 07/02/2025 Hepatitis C Screening 07/02/2025 Medicare Annual Wellness Visit 07/02/2025 Social Influencers of Health Screening 07/02/2025 RSV Immunization Adult Patie nts (1 - 1-dose 75+ series) 2030 HIB Vaccines Aged Out No longer eligi ble based on patient's age to complete this topic HPV Vaccines Aged Out No longer eligi ble based on patient's age to complete this topic Hepatitis A Vaccines Aged Out No long er eligible based on patient's age to complete this topic Hepatitis B Vaccines Aged Out No long er eligible based on patient's age to complete this topic IPV Vaccines Aged Out No longer eligi ble based on patient's age to complete this topic MMR Vaccines Aged Out No longer eligi ble based on patient's age to complete this topic Meningococcal ACWY Vaccine Aged Out N o longer eligible based on patient's age to complete this topic Meningococcal B Vaccine Aged Out No l onger eligible based on patient's age to complete this topic RSV Immunization Patients Un riana 20 months Aged Out No longer eligible b ased on patient's age to complete this topic Varicella Vaccines Aged Out No longer eligible based on patient's age to complete this topic Procedures Procedure Name Priority Date/Time Associated Diagnosis Comments COMPLETE BLOOD COUNT Routine 07/23/2025 10:09 AM EDT Anemia, unspecified BASIC METABOLIC PANEL Routine 07/23/2025 10:09 AM EDT Anemia, unspecified COMPLETE BLOOD COUNT Routine 07/16/2025 8:28 AM EDT Anemia, unspecified BASIC METABOLIC PANEL Routine 07/16/2025 8:28 AM EDT Anemia, unspecified COMPREHENSIVE METABOLIC PANEL Routine 07/09/2025 9:12 AM EDT Anemia, unspecified COMPLETE BLOOD COUNT Routine 07/09/2025 9:12 AM EDT Anemia, unspecified URIC ACID Routine 07/02/2025 7:35 AM EDT Anemia, unspecified THYROID STIMULATING HORMONE WITH REFLEX TO FREE T4 AND FREE T3 Routine 07/02/2025 7:35 AM EDT Anemia, unspecified COMPREHENSIVE METABOLIC PANEL Routine 07/02/2025 7:35 AM EDT Anemia, unspecified COMPLETE BLOOD COUNT Routine 07/02/2025 7:35 AM EDT Anemia, unspecified from Last 3 Months Results * (ABNORMAL) Complete blood count (07/23/2025 10:09 AM EDT) Only the most recent of4 resultswithin the time period is included. WBC 5.9 4.8 - 10.8 K/mcL LAB HEMETOLOGY METHOD 07/23/2025 11:54 AM [facility] RBC 3.00(L) 4.50 - 5.50 M/mcL LAB HEMETOLOGY METHOD 07/23/2025 11:54 AM [facility] Hemoglobin 9.5(L) 13.5 - 17.5 g/dL LAB HEMETOLOGY METHOD 07/23/2025 11:54 AM [facility] Hematocrit 30.9(L) 42.0 - 54.0 % LAB HEMETOLOGY METHOD 07/23/2025 11:54 AM [facility] MCV 101.6(H) 79.0 - 98.0 FL LAB HEMETOLOGY METHOD 07/23/2025 11:54 AM [facility] MCH 31.3 27.0 - 32.0 pcg LAB HEMETOLOGY METHOD 07/23/2025 11:54 AM EDT [facility] MCHC 30.7(L) 32.0 - 37.0 g/dL LAB HEMETOLOGY METHOD 07/23/2025 11:54 AM EDT [facility] RDW 18.0(H) 11.0 - 15.0 % LAB HEMETOLOGY METHOD 07/23/2025 11:54 AM EDT [facility] Platelets 333 130 - 400 K/mcL LAB HEMETOLOGY METHOD 07/23/2025 11:54 AM EDT [facility] MPV 9.8 7.0 - 11.0 FL LAB HEMETOLOGY METHOD 07/23/2025 11:54 AM EDT [facility] NRBC 0.0 <1.0 % LAB HEMETOLOGY METHOD 07/23/2025 11:54 AM EDT [facility] NRBC Absolute 0.00 <0.10 K/mcL LAB HEMETOLOGY METHOD 07/23/2025 11:54 AM T [facility] Blood Venous blood specimen / Unknown Venipuncture / Unknown 07/23/2025 10:09 AM EDT 07/23/2025 11:39 AM EDT Gui Watters MD LAB BLOOD ORDERABLES Final Result [facility] [address] [place] [address], * (ABNORMAL) Basic metabolic panel (07/23/2025 10:09 AM EDT) Only the most recent of2 resultswithin the time period is included. Sodium 140 133 - 145 mmol/L LAB CHEMISTRY METHOD 07/23/2025 1:36 PM EDT [facility] Potassium 3.8 3.5 - 5.5 mmol/L LAB CHEMISTRY METHOD 07/23/2025 1:36 PM [facility] Chloride 107 96 - 110 mmol/L LAB CHEMISTRY METHOD 07/23/2025 1:36 PM [facility] CO2 26 21 - 32 mmol/L LAB CHEMISTRY METHOD 07/23/2025 1:36 PM [facility] Anion Gap 7 3 - 11 LAB CHEMISTRY METHOD 07/23/2025 1:36 PM [facility] Glucose 103(H) 70 - 100 mg/dL LAB CHEMISTRY METHOD 07/23/2025 1:36 PM [facility] BUN 16 5 - 25 mg/dL LAB CHEMISTRY METHOD 07/23/2025 1:36 PM [facility] Creatinine 0.79 0.70 - 1.30 mg/dL LAB CHEMISTRY METHOD 07/23/2025 1:36 PM [facility] eGFR 96 >=60 mL/min/1. 73m2 LAB CHEMISTRY METHOD 07/23/2025 1:36 PM [facility] Comment:Calculation based on the Chronic Kidney Disease Epidemiology Collaboration (CKD-EPI) equation refit without adjustment for race. BUN/Creatinine Ratio 20.3 LAB CHEMISTRY METHOD 07/23/2025 1:36 PM [facility] Calcium 9.0 8.5 - 10.5 mg/dL LAB CHEMISTRY METHOD 07/23/2025 1:36 PM [facility] Blood Venous blood specimen / Unknown Venipuncture / Unknown 07/23/2025 10:09 AM EDT 07/23/2025 11:39 AM EDT us Gui Watters MD LAB BLOOD ORDERABLES Final Result [facility] [address] [place] [address], * (ABNORMAL) Comprehensive metabolic panel (07/09/2025 9:12 AM EDT) Only the most recent of2 resultswithin the time period is included. Sodium 138 133 - 145 mmol/L LAB CHEMISTRY METHOD 07/09/2025 1:57 PM [facility] Potassium 4.7 3.5 - 5.5 mmol/L LAB CHEMISTRY METHOD 07/09/2025 1:57 PM [facility] Chloride 107 96 - 110 mmol/L LAB CHEMISTRY METHOD 07/09/2025 1:57 PM [facility] CO2 16(L) 21 - 32 mmol/L LAB CHEMISTRY METHOD 07/09/2025 1:57 PM [facility] Anion Gap 15(H) 3 - 11 LAB CHEMISTRY METHOD 07/09/2025 1:57 PM [facility] Glucose 111(H) 70 - 100 mg/dL LAB CHEMISTRY METHOD 07/09/2025 1:57 PM [facility] BUN 13 5 - 25 mg/dL LAB CHEMISTRY METHOD 07/09/2025 1:57 PM [facility] Creatinine 0.78 0.70 - 1.30 mg/dL LAB CHEMISTRY METHOD 07/09/2025 1:57 PM [facility] eGFR 97 >=60 mL/min/1. 73m2 LAB CHEMISTRY METHOD 07/09/2025 1:57 PM [facility] Comment:Calculation based on the Chronic Kidney Disease Epidemiology Collaboration (CKD-EPI) equation refit without adjustment for race. BUN/Creatinine Ratio 16.7 LAB CHEMISTRY METHOD 07/09/2025 1:57 PM [facility] Calcium 8.7 8.5 - 10.5 mg/dL LAB CHEMISTRY METHOD 07/09/2025 1:57 PM [facility] AST (SGOT) 45(H) 10 - 42 unit/L LAB CHEMISTRY METHOD 07/09/2025 1:57 PM EDT [facility] ALT (SGPT) 53 10 - 60 unit/L LAB CHEMISTRY METHOD 07/09/2025 1:57 PM EDT [facility] Alkaline Phosphatase 120 42 - 121 unit/L LAB CHEMISTRY METHOD 07/09/2025 1:57 PM EDT [facility] Total Protein 7.2 6.0 - 8.0 g/dL LAB CHEMISTRY METHOD 07/09/2025 1:57 PM EDT [facility] Albumin 2.8(L) 3.2 - 5.0 g/dL LAB CHEMISTRY METHOD 07/09/2025 1:57 PM EDT [facility] Total Bilirubin 0.3 0.0 - 1.4 mg/dL LAB CHEMISTRY METHOD 07/09/2025 1:57 PM EDT [facility] Blood Venous blood specimen / Unknown Venipuncture / Unknown 07/09/2025 9:12 AM EDT 07/09/2025 12:00 PM EDT us Gui Watters MD LAB BLOOD ORDERABLES Final Result Performing Organization Address City/[facility]/ZIP Co de Phone Number [facility] [address] [place] [address], * Thyroid stimulating hormone with reflex to free t4 and free t3 (07/02/2025 7:35 AM EDT) TSH 3.41 0.40 - 4.00 mcIU/mL LAB CHEMISTRY METHOD 07/02/2025 11:25 AM EDT [facility] Blood Venous blood specimen / Unknown Venipuncture / Unknown 07/02/2025 7:35 AM EDT 07/02/2025 9:15 AM EDT us Gui Watters MD LAB BLOOD ORDERABLES Final Result [facility] [address] [place] [address], [place] [phone] * Uric acid (07/02/2025 7:35 AM EDT) Uric Acid 5.4 3.7 - 9.2 mg/dL LAB CHEMISTRY METHOD 07/02/2025 10:28 AM EDT [facility] Blood Venous blood specimen / Unknown Venipuncture / Unknown 07/02/2025 7:35 AM EDT 07/02/2025 9:15 AM EDT us Gui Watters MD LAB BLOOD ORDERABLES Final Result [facility] [address] [place] [address], [place] [phone] from Last 3 Months Insurance [employer] Care Teams Vault Teller Relationship Specialty Start Date End Date Gui Watters MD [address] [place] [address] PCP - General Internal Medicine 07/02/25
[2025-08-10 14:37] LABS: Alanine Aminotransferase 15 U/L (0-40); Albumin Level 4.2 g/dL (3.5-5.0); Alkaline Phosphatase 120 U/L (39-117); Anion Gap 10 (12-20); Aspartate Amino Transferase 22 U/L (5-37); Blood Urea Nitrogen 11 mg/dL (9-16); Calcium 9.6 mg/dL (8.4-10.2); Carbon Dioxide 25 mmol/L (22-29); Chloride 110 mmol/L (96-108); Cholesterol 129 mg/dL (<200); Estimated Glomerular Filt Rate > 60; HDL Cholesterol 38 mg/dL (>40); Hemoglobin A1C 52.9306 umol/L; Iron 66 mcg/dL (45-160); Percent Iron Saturation 29 % (15-50); Potassium 4.2 mmol/L (3.3-5.1); Sodium 141 mmol/L (135-145); Total Iron Binding Capacity 225 mcg/dL (228-428); Total Protein 7.3 g/dL (6.5-8.0); Triglycerides 86 mg/dL (<150); Unsaturated Iron Binding 159 ug/dL
[2025-08-10 14:55] LABS: Ferritin 318 ng/mL (20-250); Uric Acid 5.5 mg/dL (3.4-7.0)
== END 2025-08-10 11:42 | disposition home or self-care (01) ==
LOC: HO.LAB 11:41
PROVIDERS: PCP Internal Medicine; Visit Provider Internal Medicine
DX: Z00.00 Encounter for general adult medical examination without abnormal findings (principal); Z12.5 Encounter for screening for malignant neoplasm of prostate; Z13.29 Encounter for screening for other suspected endocrine disorder; Z11.4 Encounter for screening for human immunodeficiency virus [HIV]; Z20.6 Contact with and (suspected) exposure to human immunodeficiency virus [HIV]; Z13.21 Encounter for screening for nutritional disorder; D52.0 Dietary folate deficiency anemia; R79.89 Other specified abnormal findings of blood chemistry
CPT/HCPCS: 36415; 80053; 80061; 82306; 82607; 82728; 82746; 83036; 83090; 83540; 83921; 84153; 84443; 84550; 85027; 85045; 86704; 86706; 86803; 87340; 87389

== ENCOUNTER 2025-08-13 14:57 | Outpatient (AMB) | payer MEDICARE, SELFPAY ==
--- NOTE | 2025-08-13 15:23 | A.OFFPC_ITS ---
Vital Signs 08/13/25 15:24 Height 5 ft 7 in Weight 230 lb 8 oz BMI 36.1 BP 146/78 H Blood Pressure Location Lt brachial Position Sitting Pulse 76 Pulse Source Pulse Oximeter Temp 97.3 F Temp Source Temporal Artery Scan Pulse Oximetry (%) 98 Oxygen Delivery Method Room Air Intake Visit Reasons: follow up Intake Note: Patient is here to follow up on Lab results. Sales Service Representative Required: No Supervisor Sewing Department: Not Required per policy Accompanied by: Self / Same As Patient Allergies No Known Allergies Allergy (Verified 08/13/25 15:24) Medication List - Last Reconciled 08/13/25 by Yasmani Molina MD acetaminophen (Tylenol) 325 mg PO QID PRN allopurinol 300 mg PO DAILY ergocalciferol (vitamin D2) (Vitamin D2) 1,250 mcg PO Tu@1600 90 days folic acid 1 mg PO DAILY ibuprofen 400 mg (2 x 200 mg) PO Q6H PRN mecobalamin (vitamin B12) 500 mcg PO DAILY [id number] mcg (Centrum Minis Men 50 Plus) 1 tab PO DAILY thiamine HCl (vitamin B1) 100 mg PO DAILY Tobacco use date assessed: 08/13/25 Fall risk assessment: No Falls in past year Last assessed Fall Risk: 08/13/25 Dental Screening Dental Screen Date: 08/07/25 HPI HPI Comments History of Present Illness Details The patient is a 69-year-old male with PMH of gout, orthostatic hypotension, HTN, presenting for a follow-up visit for management of multiple chronic conditions, including leg weakness, pain, and anemia. The patient reports that his overall condition is slowly improving and denies any dizziness or fainting. He notes that the swelling in his legs is decreasing, but he continues to experience weakness in his legs, ankle pain, and pain in one knee, which he feels is not strong. He also has back pain, which is alleviated by ibuprofen. He previously pain in his big toe of his right foot suggestive of gout, but this has resolved. The patient is taking his prescribed medications which include allopurinol, vitamin D, folic acid, and thiamine. Recent blood work revealed a low hemoglobin of 9.6 g/dL on 08/10. His liver enzymes have improved, and tests for HIV and hepatitis were negative. The patient has never had a colonoscopy and has had difficulty scheduling one. A foot X-ray that was previously ordered has not yet been completed. The patient is scheduled to begin in-home physical therapy tomorrow. He mentions having transportation difficulties as he cannot currently drive his own vehicle. His appetite has improved, and he now receives meal delivery service from his insurance. [facility] [facility] Medical History (Updated 08/13/25 @ 17:25 by Yasmani Molina MD) Gout HTN (hypertension) Surgical History (Updated 08/13/25 @ 15:31 by TIO Anderson) History of testicular surgery Social History Household Members: Children and Other Household Members Other:: Daughter in law Housing: Homeless Do you presently have visiting nurse or other home services: No Alcohol intake: former Patient Tobacco Use Status: Current someday Tobacco user Tobacco use type: Cigar e-Cigarette/Vaping Use: Never Used Second Hand Smoke Exposure: No Advance Directives Date on File: 06/30/25 service: No Current occupational status: retired Cognitive needs: No Hearing needs: No Vision needs: No Questionnaire Thrive Questionnaire Date Thrive assessed: 08/07/25 I am a: Patient What is your living situation today?: I have a steady place to live Within the past 12 months, did the food you bought not last and you didn't have the money to get more?: Never true Within the past 12 months, did you worry whether your food would run out before you got money to buy more?: Never true Do you have trouble paying for medicines?: No Do you have trouble getting transportation to medical appointments?: No Do you have trouble paying your heating and electricity bill?: No Do you have trouble taking care of your child, family member or friend?: No Do you have trouble with day-to-day activities such as bathing, preparing meals, shopping, managing finances, etc.?: No Are you currently unemployed and looking for a job?: No Are you interested in more education?: No Please select the resources that you would like help with: None Currently or been in a relationship where the following occur: No concerns reported THRIVE Score: 0 TATE-7 AMB Questionnaire TATE-7 Date TATE - 7 assessed: 08/07/25 Source: Developed by Drs. Jakub Macias, Sheila Tyson, Haider Villagran and colleagues, with an educational bea from [employer]. Review of Systems Const Details: As per HPI. Physical exam (Primary Care) Vital Signs: Last Vital Signs Temp 97.3 F 08/13/25 15:24 Pulse 76 08/13/25 15:24 BP 146/78 H 08/13/25 15:24 Pulse Ox 98 08/13/25 15:24 Oxygen Delivery Method Room Air 08/13/25 15:24 BMI result Body Mass Index 36.1 Tobacco/Smoking Status: Tobacco use Status Tobacco use date assessed 08/13/25 08/13/25 15:25 Patient Tobacco Use Status Current someday Tobacco 08/13/25 15:32 Tobacco use type Cigar 08/13/25 15:32 e-Cigarette/Vaping Use Never Used 08/13/25 15:25 Thrive Assessment: Date of Thrive Assessment Date Thrive assessed 08/07/25 08/13/25 15:25 Currently or been in a relationship where the following occur: No concerns reported Const Other: Pertinent findings are in BOLD GENERAL APPEARANCE NAD, activity normal for age, well developed/ well nourished, no cyanosis, pallor, or diaphoresis. EYES lids/conjunctiva normal. EARS/NOSE/THROAT Mucous membranes moist, nares normal, lips/teeth normal uvula midline without oral pharyngeal erythema, exudate or swelling TMs normal bilaterally. No lymphangitis/lymphedema. HEAD/NECK normocephalic atraumatic, no facial trauma, neck is supple. RESPIRATORY respiratory effort normal, speaks in full sentences, no tripod position, no accessory muscle use. Lungs clear to auscultation without rhonchi, wheezes, rales CARDIAC Regular rate and rhythm, no edema. ABDOMINAL Soft, ND/NT. No evidence of fluid wave. No pulsatile masses on exam, rebound tenderness, Evangelista sign or pain over Mcburney's point. MUSCLES/EXTREMITIES No abnormal range of motion, no swelling. Right foot s welling. Bilateral lower extremities weakness. Bilateral knee tenderness. SKIN Warm, pink and dry. No rashes, dermatoses, petechiae or lesions. NEUROLOGICAL Speech is clear and appropriate. Normal level of consciousness. Gait and coordination are normal. 5/5 strength in all extremities. PSYCH Normal mood and affect. Judgement/competence is appropriate Immunizations Boostrix Tdap 2.5 Lf unit-8 mcg-5 Lf/0.5 mL intramuscular syringe Performing Provider: Yasmani Molina MD [facility] Administered by: Gayla Berger CMA on 08/13/25 16:38 Dose Route Admin Location Dispensed Lot Number Expiration Date NDC Pneumatic Jack Operator 0.5 mL IM Left Deltoid 0.5 mL [id number] 03/12/28 [id number] [employer] Total Dispensed Waste 0.5 mL 0 % VIS Given Date VIS Provided VIS Publication Date 08/13/25 Single Vaccine 21 Eligibility Eligibility Date Funding Source Not [facility] Eligible 08/13/25 Private Coding Level of Care Code Est Pt Level 4 (41680) Diagnoses 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 Anemia type: folate deficiency Folate deficiency anemia type: dietary Right foot pain M79.671 Laterality: right Abnormal LFTs R79.89 Primary hypertension I10 Hypertension type: primary hypertension Orthostasis I95.1 Alcohol abuse F10.10 Leg weakness, bilateral R29.898 Healthcare maintenance Z00.00 Time Spent (min) 30 Assessment & Plan Assessment & Plan (1) Anemia: Comment: 11/02 Alcohol use Code(s): D64.9 - Anemia, unspecified Category: Medical Qualifiers: Anemia type: folate deficiency Folate deficiency anemia type: dietary Qualified Code(s): D52.0 - Dietary folate deficiency anemia Plan: - The patient's hemoglobin was 9.6 g/dL on 08/10. - Continue supplements including Iron, thiamine, vitamin B12, and folic acid. - A prescription for vitamin D will also be provided. - Repeat blood work, including hemoglobin level, will be done in one month before the next visit. - Diet was discussed, including avoiding beef due to gout, with an emphasis on supplements for anemia management. (2) Foot pain: Code(s): M79.673 - Pain in unspecified foot Category: Medical Qualifiers: Laterality: right Qualified Code(s): M79.671 - Pain in right foot Plan: - The patient will continue taking allopurinol. - For pain, the patient may use Tylenol or ibuprofen, but was advised not to take ibuprofen and Aleve on the same day. - A topical gel (Voltaren) will be prescribed for ankle pain. - A previously ordered X-ray of the foot should be completed. - Knee pain will be addressed at the next visit in one month. (3) Abnormal LFTs: Code(s): R79.89 - Other specified abnormal findings of blood chemistry Category: Medical Plan: Resolved. Patient continues Alcohol abstinence. (4) HTN (hypertension): Code(s): I10 - Essential (primary) hypertension Category: Medical Qualifiers: Hypertension type: primary hypertension Qualified Code(s): I10 - Essential (primary) hypertension (5) Orthostasis: Code(s): I95.1 - Orthostatic hypotension Category: Medical (6) Alcohol abuse: Comment: c/b Macrocytic anemia. In remission. Code(s): F10.10 - Alcohol abuse, uncomplicated Category: Social Hx Plan: In remission. (7) Leg weakness, bilateral: Code(s): R29.898 - Other symptoms and signs involving the musculoskeletal system Category: Medical Plan: - The patient is scheduled to begin physical therapy at home, which is expected to help with strength and pain. (8) Healthcare maintenance: Code(s): Z00.00 - Encounter for general adult medical examination without abnormal findings Category: Medical Plan: Tdap immunization completed. Plan I reviewed the patient's recent lab results with him, specifically noting the low hemoglobin of 9.6 g/dL and the improvement in his liver enzymes. I explained that we would continue treatment for his anemia with supplements including thiamine, vitamin B12, folic acid, and vitamin D, and we will repeat his blood work in one month to monitor his progress. We discussed his musculoskeletal pain, and I prescribed a topical gel for his ankle and advised on the use of ibuprofen or Tylenol for pain relief, cautioning against using NSAIDs like ibuprofen and Aleve on the same day. I reinforced the need to complete the pending foot X-ray. I acknowledged his upcoming home physical therapy, which should help with his leg weakness and pain, and we agreed to address his knee pain more specifically at the next visit. I provided him with a new contact number to facilitate scheduling his overdue colonoscopy and informed him that a Tdap vaccine would be administered today. I scheduled a follow-up visit in one month for close monitoring and instructed him to bring a list of his medications and a log of his daily blood pressure readings to that appointment. Orders: Orders Complete Blood Count no Diff 1 Month D52.0 - Dietary folate deficiency anemia IRON PROFILE 1 Month D52.0 - Dietary folate deficiency anemia TDaP Immunization Today Z23 - Encounter for immunization Medications: New mecobalamin (vitamin B12) 500 mcg PO DAILY 90 tabs 3RF diclofenac sodium 1% (Voltaren Arthritis Pain) apply to single elbow, wrist or hand; for hand includes palm/fingers/back of hand 2 grams topical QID 100 grams 2RF cholecalciferol (vitamin D3) 62.5 mcg PO DAILY 90 caps 3RF Discontinued ergocalciferol (vitamin D2) (Vitamin D2) Discontinued Reason: Duplicate 1,250 mcg PO Tu@1600 90 days 13 caps 0RF
[2025-08-13 15:24] VITALS: BP 146/78; PULSE 76; TEMP 36.3; O2SAT 98; BMI 36.1
--- OUTSIDE RECORDS SUMMARY | 2025-08-13 18:13 | XMS_ITS | Clinical Summary ---
Author Organization [address] [facility] Address [address] [place] [address] Phone Care Team Providers Care Court Manager Name Role Phone Gui Watters MD Primary Care Provider +1- [phone] Encounters Date Type Department Care Team Description 07/29/2025 Lab Requisition [facility] [address] [place] [address] Gui Watters MD Anemia, unspecified 07/22/2025 Lab Requisition [facility] [address] [place] [address] Gui Watters MD Anemia, unspecified 07/16/2025 Lab Requisition [facility] [address] [place] [address] Gui Watters MD Anemia, unspecified 07/09/2025 Lab Requisition [facility] [address] [place] [address] Gui Watters MD Anemia, unspecified 07/08/2025 Lab Requisition [facility] [address] [place] [address] Gui Watters MD Anemia, unspecified 07/02/2025 Lab Requisition [facility] [address] [place] [address] Gui Watters MD Anemia, unspecified from Last [...] 07/23/2025 11:54 AM [facility] RBC 3.00(L) 4.50 - 5.50 M/mcL LAB HEMETOLOGY METHOD 07/23/2025 11:54 AM [facility] Hemoglobin 9.5(L) 13.5 - 17.5 g/dL LAB HEMETOLOGY METHOD 07/23/2025 11:54 AM [facility] Hematocrit 30.9(L) 42.0 - 54.0 % LAB HEMETOLOGY METHOD 07/23/2025 11:54 AM [facility] MCV 101.6(H) 79.0 - 98.0 FL LAB HEMETOLOGY METHOD 07/23/2025 11:54 AM [facility] MCH 31.3 27.0 - 32.0 pcg LAB HEMETOLOGY METHOD 07/23/2025 11:54 AM EDT [facility] MCHC 30.7(L) 32.0 - 37.0 g/dL LAB HEMETOLOGY METHOD 07/23/2025 11:54 AM EDT [facility] RDW 18.0(H) 11.0 - 15.0 % LAB HEMETOLOGY METHOD 07/23/2025 11:54 AM EDT [facility] Platelets 333 130 - 400 K/mcL LAB HEMETOLOGY METHOD 07/23/2025 11:54 AM EDT [facility] MPV 9.8 7.0 - 11.0 FL LAB HEMETOLOGY METHOD 07/23/2025 11:54 AM EDT [facility] NRBC 0.0 <1.0 % LAB HEMETOLOGY METHOD 07/23/2025 11:54 AM EDT [facility] NRBC Absolute 0.00 <0.10 K/mcL LAB HEMETOLOGY METHOD 07/23/2025 11:54 AM T [facility] Blood Venous blood specimen / Unknown Venipuncture / Unknown 07/23/2025 10:09 AM EDT 07/23/2025 11:39 AM EDT Gui Watters MD LAB BLOOD ORDERABLES Final Result [facility] [address] [place] [address], * (ABNORMAL) Basic metabolic panel (07/23/2025 10:09 AM EDT) Only the most recent of2 resultswithin the time period is included. Sodium 140 133 - 145 mmol/L LAB CHEMISTRY METHOD 07/23/2025 1:36 PM EDT [facility] Potassium 3.8 3.5 - 5.5 [...] Watters MD LAB BLOOD ORDERABLES Final Result [facility] [address] [place] [address], * (ABNORMAL) Comprehensive metabolic panel (07/09/2025 9:12 AM EDT) Only the most recent of2 resultswithin the time period is included. Sodium 138 133 - 145 mmol/L LAB CHEMISTRY METHOD 07/09/2025 1:57 PM [facility] Potassium 4.7 3.5 - 5.5 mmol/L LAB CHEMISTRY METHOD 07/09/2025 1:57 PM [facility] Chloride 107 96 - 110 mmol/L LAB CHEMISTRY METHOD 07/09/2025 1:57 PM [facility] CO2 16(L) 21 - 32 mmol/L LAB CHEMISTRY METHOD 07/09/2025 1:57 PM [facility] Anion Gap 15(H) 3 - 11 LAB CHEMISTRY METHOD 07/09/2025 1:57 PM [facility] Glucose 111(H) 70 - 100 mg/dL LAB CHEMISTRY METHOD 07/09/2025 1:57 PM [facility] BUN 13 5 - 25 mg/dL LAB CHEMISTRY METHOD 07/09/2025 1:57 PM [facility] Creatinine 0.78 0.70 - 1.30 mg/dL LAB CHEMISTRY METHOD 07/09/2025 1:57 PM [facility] eGFR 97 >=60 mL/min/1. 73m2 LAB CHEMISTRY METHOD 07/09/2025 1:57 PM [facility] Comment:Calculation based on the Chronic Kidney Disease Epidemiology Collaboration (CKD-EPI) equation refit without adjustment for race. BUN/Creatinine Ratio 16.7 LAB CHEMISTRY METHOD 07/09/2025 1:57 PM [facility] Calcium 8.7 8.5 - 10.5 mg/dL LAB CHEMISTRY METHOD 07/09/2025 1:57 PM [facility] AST (SGOT) 45(H) 10 - 42 unit/L LAB CHEMISTRY METHOD 07/09/2025 1:57 PM EDT [facility] ALT (SGPT) 53 10 - 60 unit/L LAB CHEMISTRY METHOD 07/09/2025 1:57 PM EDT [facility] Alkaline Phosphatase 120 42 - 121 unit/L LAB CHEMISTRY METHOD 07/09/2025 1:57 PM EDT [facility] Total Protein 7.2 6.0 - 8.0 g/dL LAB CHEMISTRY METHOD 07/09/2025 1:57 PM EDT [facility] Albumin 2.8(L) 3.2 - 5.0 g/dL LAB CHEMISTRY METHOD 07/09/2025 1:57 PM EDT [facility] Total Bilirubin 0.3 0.0 - 1.4 mg/dL LAB CHEMISTRY METHOD 07/09/2025 1:57 PM EDT [facility] Blood Venous blood specimen / Unknown Venipuncture / Unknown 07/09/2025 9:12 AM EDT 07/09/2025 12:00 PM EDT us Gui Watters MD LAB BLOOD ORDERABLES Final Result Performing Organization Address City/[facility]/ZIP Co de Phone Number [facility] [address] [place] [address], * Thyroid stimulating hormone with reflex to free t4 and free t3 (07/02/2025 7:35 AM EDT) TSH 3.41 0.40 - 4.00 mcIU/mL LAB CHEMISTRY METHOD 07/02/2025 11:25 AM EDT [facility] Blood Venous blood specimen / Unknown Venipuncture / Unknown 07/02/2025 7:35 AM EDT 07/02/2025 9:15 AM EDT us Gui Watters MD LAB BLOOD ORDERABLES Final Result [facility] [address] [place] [address], [place] [phone] * Uric acid (07/02/2025 7:35 AM EDT) Uric Acid 5.4 3.7 - 9.2 mg/dL LAB CHEMISTRY METHOD 07/02/2025 10:28 AM EDT [facility] Blood Venous blood specimen / Unknown Venipuncture / Unknown 07/02/2025 7:35 AM EDT 07/02/2025 9:15 AM EDT us Gui Watters MD LAB BLOOD ORDERABLES Final Result [facility] ([facility]) [facility] [address] [place] [address], [place] [phone] from Last 3 Months Insurance [employer] Care Teams Court Manager Relationship Specialty Start Date End Date Gui Watters MD [address] [place] [address] PCP - General Internal Medicine 07/02/25
--- OUTSIDE RECORDS SUMMARY | 2025-08-13 18:13 | XMS_ITS | Encounter Summary ---
Author Organization [facility] Address [address] [place] [address] Care Team Providers Care Car Salesman Name Role Phone Gui Watters MD Primary Care Provider +1- [phone] Encounter Details Date Type Department Care Team (Late st Contact Info) Description 07/08/2025 Lab Requisition [facility] [address] [facility] [place] [address] Gui Watters MD [address] [place] [address] Anemia, unspecified Social History Tobacco Use Types [...] 1:57 PM EDT [facility] Potassium 4.7 3.5 - 5.5 mmol/L LAB CHEMISTRY METHOD 07/09/2025 1:57 PM EDT [facility] Chloride 107 96 - 110 mmol/L LAB CHEMISTRY METHOD 07/09/2025 1:57 PM T [facility] CO2 16(L) 21 - 32 [...] Final Result [facility] [address] [place] [address], * (ABNORMAL) Complete blood count (07/09/2025 9:12 [...] LAB HEMETOLOGY METHOD 07/09/2025 12:42 PM EDT [facility] RDW 16.7(H) 11.0 - 15.0 % LAB HEMETOLOGY METHOD 07/09/2025 12:42 PM EDT [facility] Platelets 314 130 - 400 K/mcL LAB HEMETOLOGY METHOD 07/09/2025 12:42 PM EDT [facility] MPV 10.5 7.0 - 11.0 FL LAB HEMETOLOGY METHOD 07/09/2025 12:42 PM EDT [facility] NRBC 0.0 <1.0 % LAB HEMETOLOGY METHOD 07/09/2025 12:42 PM EDT [facility] NRBC Absolute 0.00 <0.10 K/mcL LAB HEMETOLOGY METHOD 07/09/2025 12:42 PM EDT [facility] Blood Venous blood specimen / Unknown Venipuncture / Unknown 07/09/2025 9:12 AM EDT 07/09/2025 12:00 PM EDT us Gui Watters MD LAB BLOOD ORDERABLES Final Result [facility] [address] [place] [address], documented in this encounter Visit Diagnoses Diagnosis Anemia, unspecified documented in this encounter Care Teams Car Salesman Relationship Specialty Start Date End Date Gui Watters MD [address] [place] [address] PCP - General Internal Medicine 07/02/25 documented as of this encounter
--- OUTSIDE RECORDS SUMMARY | 2025-08-13 18:13 | XMS_ITS | Encounter Summary ---
Author Organization [facility] Address [address] [place] [address] Care Team Providers Care Industrial Robotics Mechanic Name Role Phone Gui Watters MD Primary Care Provider +1- [phone] Encounter Details Date Type Department Care Team (Late st Contact Info) Description 07/22/2025 Lab Requisition [facility] Lab [address] [facility] [place] [address] Gui Watters MD [address] [place] [address] Anemia, unspecified Social History Tobacco Use Types [...] LAB HEMETOLOGY METHOD 07/23/2025 11:54 AM EDT [facility] RBC 3.00(L) 4.50 - 5.50 M/mcL LAB HEMETOLOGY METHOD 07/23/2025 11:54 AM EDT [facility] Hemoglobin 9.5(L) 13.5 - 17.5 g/dL LAB HEMETOLOGY METHOD 07/23/2025 11:54 AM EDT [facility] Hematocrit 30.9(L) 42.0 - 54.0 % LAB HEMETOLOGY METHOD 07/23/2025 11:54 AM EDT [facility] MCV 101.6(H) 79.0 - 98.0 FL LAB HEMETOLOGY METHOD 07/23/2025 11:54 AM EDT [facility] MCH 31.3 27.0 - 32.0 pcg LAB HEMETOLOGY METHOD 07/23/2025 11:54 AM EDT [facility] MCHC 30.7(L) 32.0 - 37.0 g/dL LAB HEMETOLOGY METHOD 07/23/2025 11:54 AM [facility] RDW 18.0(H) 11.0 - 15.0 % LAB HEMETOLOGY METHOD 07/23/2025 11:54 AM EDT [facility] Platelets 333 130 - 400 K/mcL LAB HEMETOLOGY METHOD 07/23/2025 11:54 AM T [facility] MPV 9.8 7.0 - 11.0 FL LAB HEMETOLOGY METHOD 07/23/2025 11:54 AM [facility] NRBC 0.0 <1.0 % LAB HEMETOLOGY METHOD 07/23/2025 11:54 AM EDT [facility] NRBC Absolute 0.00 <0.10 K/mcL LAB HEMETOLOGY METHOD 07/23/2025 11:54 AM [facility] Blood Venous blood specimen / Unknown Venipuncture / Unknown 07/23/2025 10:09 AM EDT 07/23/2025 11:39 AM EDT us Gui Watters MD LAB BLOOD ORDERABLES Final Result [facility] [address] [place] [address], [place] [phone] * (ABNORMAL) Basic metabolic panel (07/23/2025 10:09 AM EDT) Sodium 140 133 - 145 mmol/L LAB CHEMISTRY METHOD 07/23/2025 1:36 PM [facility] Potassium 3.8 3.5 - 5.5 mmol/L LAB CHEMISTRY METHOD 07/23/2025 1:36 PM [facility] Chloride 107 96 - 110 mmol/L LAB CHEMISTRY METHOD 07/23/2025 1:36 PM [facility] CO2 26 21 - 32 mmol/L LAB CHEMISTRY METHOD 07/23/2025 1:36 PM [facility] Anion Gap 7 3 - 11 LAB CHEMISTRY METHOD 07/23/2025 1:36 PM [facility] Glucose 103(H) 70 - 100 mg/dL LAB CHEMISTRY METHOD 07/23/2025 1:36 PM [facility] BUN 16 5 - 25 mg/dL LAB CHEMISTRY METHOD 07/23/2025 1:36 PM [facility] Creatinine 0.79 0.70 - 1.30 mg/dL LAB CHEMISTRY METHOD 07/23/2025 1:36 PM [facility] eGFR 96 >=60 mL/min/1. 73m2 LAB CHEMISTRY METHOD 07/23/2025 1:36 PM [facility] Comment:Calculation based on the Chronic Kidney Disease Epidemiology Collaboration (CKD-EPI) equation refit without adjustment for race. BUN/Creatinine Ratio 20.3 LAB CHEMISTRY METHOD 07/23/2025 1:36 PM [facility] Calcium 9.0 8.5 - 10.5 mg/dL LAB CHEMISTRY METHOD 07/23/2025 1:36 PM [facility] Blood Venous blood specimen / Unknown Venipuncture / Unknown 07/23/2025 10:09 AM EDT 07/23/2025 11:39 AM EDT Gui Watters MD LAB BLOOD ORDERABLES Final Result [facility] [address] [place] [address], documented in this encounter Visit Diagnoses Diagnosis Anemia, unspecified documented in this encounter Care Teams Industrial Robotics Mechanic Relationship Specialty Start Date End Date Gui Watters MD [address] [place] [address] PCP - General Internal Medicine 07/02/25 documented as of this encounter
--- OUTSIDE RECORDS SUMMARY | 2025-08-13 18:13 | XMS_ITS | Encounter Summary ---
Author Organization [employer] [facility] Address [address] [place] [address] Care Team Providers Care Restaurant Shift Leader Name Role Phone Gui Watters MD Primary Care Provider +1- [phone] Encounter Details Date Type Department Care Team (Late st Contact Info) Description 07/16/2025 Lab Requisition [facility] [address] [facility] [place] [address] Gui Watters MD [address] [place] [address] Anemia, unspecified Social History Tobacco Use Types [...] LAB HEMETOLOGY METHOD 07/16/2025 12:00 PM EDT [facility] RBC 2.70(L) 4.50 - 5.50 M/mcL LAB HEMETOLOGY METHOD 07/16/2025 12:00 PM EDT [facility] Hemoglobin 8.6(L) 13.5 - 17.5 g/dL LAB HEMETOLOGY METHOD 07/16/2025 12:00 PM EDT [facility] Hematocrit 27.2(L) 42.0 - 54.0 % LAB HEMETOLOGY METHOD 07/16/2025 12:00 PM [facility] MCV 100.4(H) 79.0 - 98.0 FL LAB HEMETOLOGY METHOD 07/16/2025 12:00 PM EDT [facility] MCH 31.7 27.0 - 32.0 pcg LAB HEMETOLOGY METHOD 07/16/2025 12:00 PM [facility] MCHC 31.6(L) 32.0 - 37.0 g/dL LAB HEMETOLOGY METHOD 07/16/2025 12:00 PM [facility] RDW 17.1(H) 11.0 - 15.0 % LAB HEMETOLOGY METHOD 07/16/2025 12:00 PM [facility] Platelets 434(H) 130 - 400 K/mcL LAB HEMETOLOGY METHOD 07/16/2025 12:00 PM [facility] MPV 9.6 7.0 - 11.0 FL LAB HEMETOLOGY METHOD 07/16/2025 12:00 PM [facility] NRBC 0.0 <1.0 % LAB HEMETOLOGY METHOD 07/16/2025 12:00 PM [facility] NRBC Absolute 0.00 <0.10 K/mcL LAB HEMETOLOGY METHOD 07/16/2025 12:00 PM [facility] Blood Venous blood specimen / Unknown Venipuncture / Unknown 07/16/2025 8:28 AM EDT 07/16/2025 11:41 AM EDT us Gui Watters MD LAB BLOOD ORDERABLES Final Result [facility] [address] [place] [address], * Basic metabolic panel (07/16/2025 8:28 AM EDT) Sodium 139 133 - 145 mmol/L LAB CHEMISTRY METHOD 07/16/2025 12:37 PM [facility] Potassium 4.3 3.5 - 5.5 mmol/L LAB CHEMISTRY METHOD 07/16/2025 12:37 PM [facility] Chloride 107 96 - 110 mmol/L LAB CHEMISTRY METHOD 07/16/2025 12:37 PM [facility] CO2 26 21 - 32 mmol/L LAB CHEMISTRY METHOD 07/16/2025 12:37 PM [facility] Anion Gap 6 3 - 11 LAB CHEMISTRY METHOD 07/16/2025 12:37 PM [facility] Glucose 73 70 - 100 mg/dL LAB CHEMISTRY METHOD 07/16/2025 12:37 PM [facility] BUN 10 5 - 25 mg/dL LAB CHEMISTRY METHOD 07/16/2025 12:37 PM [facility] Creatinine 0.86 0.70 - 1.30 mg/dL LAB CHEMISTRY METHOD 07/16/2025 12:37 PM [facility] eGFR 94 >=60 mL/min/1. 73m2 LAB CHEMISTRY METHOD 07/16/2025 12:37 PM [facility] Comment:Calculation based on the Chronic Kidney Disease Epidemiology Collaboration (CKD-EPI) equation refit without adjustment for race. BUN/Creatinine Ratio 11.6 LAB CHEMISTRY METHOD 07/16/2025 12:37 PM [facility] Calcium 9.5 8.5 - 10.5 mg/dL LAB CHEMISTRY METHOD 07/16/2025 12:37 PM [facility] Blood Venous blood specimen / Unknown Venipuncture / Unknown 07/16/2025 8:28 AM EDT 07/16/2025 11:41 AM EDT Gui Watters MD LAB BLOOD ORDERABLES Final Result [facility] [address] [place] [address], documented in this encounter Visit Diagnoses Diagnosis Anemia, unspecified documented in this encounter Care Teams Restaurant Shift Leader Relationship Specialty Start Date End Date Gui Watters MD [address] [place] [address] PCP - General Internal Medicine 07/02/25 documented as of this encounter
--- OUTSIDE RECORDS SUMMARY | 2025-08-13 18:13 | XMS_ITS | Encounter Summary ---
Author Organization [facility] Address [address] [place] [address] Care Team Providers Care Director School Of Nursing Name Role Phone Gui Watters MD Primary Care Provider +1- [phone] Encounter Details Date Type Department Care Team (Late st Contact Info) Description 07/29/2025 Lab Requisition [facility] - [facility] Lab [address] [facility] [place] [address] Gui Watters MD [address] [place] [address] Anemia, unspecified Social History Tobacco Use Types [...] unspecified documented in this encounter Care Teams Director School Of Nursing Relationship Specialty Start Date End Date Gui Watters MD [address] [place] [address] PCP - General Internal Medicine 07/02/25 documented as of this encounter
--- OUTSIDE RECORDS SUMMARY | 2025-08-13 18:13 | XMS_ITS | Encounter Summary ---
Author Organization [employer] Address [address] [place] [address] Care Team Providers Care Street Light Servicer Name Role Phone Gui Watters MD Primary Care Provider +1- [phone] Encounter Details Date Type Department Care Team (Late st Contact Info) Description 07/02/2025 Lab Requisition [facility] - Main Lab [address] [facility] [place] [address] Gui Watters MD [address] [place] [address] Anemia, unspecified Social History Tobacco Use Types [...] LAB CHEMISTRY METHOD 07/02/2025 10:28 AM EDT [facility] Blood Venous blood specimen / Unknown Venipuncture / Unknown 07/02/2025 7:35 AM EDT 07/02/2025 9:15 AM EDT us Gui Watters MD LAB BLOOD ORDERABLES Final Result Performing Organization Address [facility]/ZIP Co de Phone Number [facility] [address] [place] [address], [place] [phone] * Thyroid stimulating hormone with reflex to free t4 and free t3 (07/02/2025 7:35 AM EDT) Pathologist [facility] TSH 3.41 0.40 - 4.00 mcIU/mL LAB CHEMISTRY METHOD 07/02/2025 11:25 AM EDT [facility] Blood Venous blood specimen / Unknown Venipuncture / Unknown 07/02/2025 7:35 AM EDT 07/02/2025 9:15 AM EDT us Gui Watters MD LAB BLOOD ORDERABLES Final Result Performing Organization Address [facility]/ZIP Co de Phone Number [facility] [address] [place] [address], [place] [phone] * (ABNORMAL) Comprehensive metabolic panel (07/02/2025 7:35 AM EDT) Sodium 135 133 - 145 mmol/L LAB CHEMISTRY METHOD 07/02/2025 10:31 AM EDT [facility] Potassium 3.7 3.5 - 5.5 mmol/L LAB CHEMISTRY METHOD 07/02/2025 10:31 AM EDT [facility] Chloride 105 96 - 110 mmol/L LAB CHEMISTRY METHOD 07/02/2025 10:31 AM EDT [facility] CO2 22 21 - 32 mmol/L LAB CHEMISTRY METHOD 07/02/2025 10:31 AM EDT [facility] Anion Gap 8 3 - 11 LAB CHEMISTRY METHOD 07/02/2025 10:31 AM [facility] Glucose 105(H) 70 - 100 mg/dL LAB CHEMISTRY METHOD 07/02/2025 10:31 AM [facility] BUN 10 5 - 25 mg/dL LAB CHEMISTRY METHOD 07/02/2025 10:31 AM [facility] Creatinine 0.71 0.70 - 1.30 mg/dL LAB CHEMISTRY METHOD 07/02/2025 10:31 AM [facility] eGFR 99 >=60 mL/min/1. 73m2 LAB CHEMISTRY METHOD 07/02/2025 10:31 AM [facility] Comment:Calculation based on the Chronic Kidney Disease Epidemiology Collaboration (CKD-EPI) equation refit without adjustment for race. BUN/Creatinine Ratio 14.1 LAB CHEMISTRY METHOD 07/02/2025 10:31 AM [facility] Calcium 8.8 8.5 - 10.5 mg/dL LAB CHEMISTRY METHOD 07/02/2025 10:31 AM [facility] AST (SGOT) 39 10 - 42 unit/L LAB CHEMISTRY METHOD 07/02/2025 10:31 AM [facility] ALT (SGPT) 39 10 - 60 unit/L LAB CHEMISTRY METHOD 07/02/2025 10:31 AM [facility] Alkaline Phosphatase 109 42 - 121 unit/L LAB CHEMISTRY METHOD 07/02/2025 10:31 AM [facility] Total Protein 6.6 6.0 - 8.0 g/dL LAB CHEMISTRY METHOD 07/02/2025 10:31 AM [facility] Albumin 2.8(L) 3.2 - 5.0 g/dL LAB CHEMISTRY METHOD 07/02/2025 10:31 AM [facility] Total Bilirubin 0.6 0.0 - 1.4 mg/dL LAB CHEMISTRY METHOD 07/02/2025 10:31 AM [facility] Blood Venous blood specimen / Unknown Venipuncture / Unknown 07/02/2025 7:35 AM EDT 07/02/2025 9:15 AM EDT Gui Watters MD LAB BLOOD ORDERABLES Final Result [facility] [address] [place] [address], * (ABNORMAL) Complete blood count (07/02/2025 7:35 AM EDT) WBC 9.1 4.8 - 10.8 K/mcL LAB HEMETOLOGY METHOD 07/02/2025 9:43 AM EDT [facility] RBC 2.80(L) 4.50 - 5.50 M/mcL LAB HEMETOLOGY METHOD 07/02/2025 9:43 AM EDT [facility] Hemoglobin 9.2(L) 13.5 - 17.5 g/dL LAB HEMETOLOGY METHOD 07/02/2025 9:43 AM [facility] Hematocrit 28.2(L) 42.0 - 54.0 % LAB HEMETOLOGY METHOD 07/02/2025 9:43 AM [facility] MCV 101.8(H) 79.0 - 98.0 FL LAB HEMETOLOGY METHOD 07/02/2025 9:43 AM EDT [facility] MCH 33.2(H) 27.0 - 32.0 pcg LAB HEMETOLOGY METHOD 07/02/2025 9:43 AM EDT [facility] MCHC 32.6 32.0 - 37.0 g/dL LAB HEMETOLOGY METHOD 07/02/2025 9:43 AM [facility] RDW 14.9 11.0 - 15.0 % LAB HEMETOLOGY METHOD 07/02/2025 9:43 AM EDT [facility] Platelets 263 130 - 400 K/mcL LAB HEMETOLOGY METHOD 07/02/2025 9:43 AM EDT [facility] MPV 10.9 7.0 - 11.0 FL LAB HEMETOLOGY METHOD 07/02/2025 9:43 AM EDT [facility] NRBC 0.0 <1.0 % LAB HEMETOLOGY METHOD 07/02/2025 9:43 AM EDT [facility] NRBC Absolute 0.00 <0.10 K/mcL LAB HEMETOLOGY METHOD 07/02/2025 9:43 AM EDT [facility] Blood Venous blood specimen / Unknown Venipuncture / Unknown 07/02/2025 7:35 AM EDT 07/02/2025 9:15 AM EDT Gui Watters MD LAB BLOOD ORDERABLES Final Result [facility] [address] [place] [address], documented in this encounter Visit Diagnoses Diagnosis Anemia, unspecified documented in this encounter Care Teams Street Light Servicer Relationship Specialty Start Date End Date Gui Watters MD [address] [place] [address] PCP - General Internal Medicine 07/02/25 documented as of this encounter
--- OUTSIDE RECORDS SUMMARY | 2025-08-13 18:13 | XMS_ITS | Encounter Summary ---
Author Organization [facility] Address [address] [place] [address] Care Team Providers Care Center Mgr Name Role Phone Gui Watters MD Primary Care Provider +1- [phone] Encounter Details Date Type Department Care Team (Late st Contact Info) Description 07/09/2025 Lab Requisition [facility] - Main Lab [address] [facility] [place] [address] Gui Watters MD [address] [place] [address] Anemia, unspecified Social History Tobacco Use Types [...] unspecified documented in this encounter Care Teams Center Mgr Relationship Specialty Start Date End Date Gui Watters MD [address] [place] [address] PCP - General Internal Medicine 07/02/25 documented as of this encounter
== END 2025-08-13 16:47 | disposition home or self-care (01) ==
LOC: HO.HMCH 14:57
PROVIDERS: PCP Internal Medicine; Visit Provider Internal Medicine
DX: D52.0 Dietary folate deficiency anemia (principal); M79.671 Pain in right foot; R79.89 Other specified abnormal findings of blood chemistry; I10 Essential (primary) hypertension; I95.1 Orthostatic hypotension; F10.10 Alcohol abuse, uncomplicated; R29.898 Other symptoms and signs involving the musculoskeletal system; Z00.00 Encounter for general adult medical examination without abnormal findings; Z23 Encounter for immunization

== ENCOUNTER → 2025-08-13 14:57 | Outpatient (BNVA) | payer MEDICARE, SELFPAY | PROVIDERS: PCP Internal Medicine; Visit Provider Internal Medicine | DX: Z00.00 Encounter for general adult medical examination without abnormal findings (principal); I10 Essential (primary) hypertension; M10.9 Gout, unspecified; D52.0 Dietary folate deficiency anemia; M79.671 Pain in right foot; R79.89 Other specified abnormal findings of blood chemistry; I95.1 Orthostatic hypotension; F10.10 Alcohol abuse, uncomplicated; R29.898 Other symptoms and signs involving the musculoskeletal system; Z23 Encounter for immunization | CPT/HCPCS: 90471; 90715; 99212 ==

== ENCOUNTER 2025-08-19 09:46 | Emergency (ER) | payer MEDICARE, SELFPAY ==
--- NOTE | ~2025-08-19 | XR_ITS ---
EXAMINATION: XR FOOT, RIGHT CLINICAL INFORMATION: right foot pain, hx gout COMPARISON: None available. TECHNIQUE: AP, lateral, and oblique views of the right foot. FINDINGS: Bone alignment is normal. No fracture or dislocation. Soft tissue swelling and focal osteopenia at the medial first MTP joint. Small erosive or cystic change of the medial first metatarsal head. Findings compatible with history of gout. Joint spaces otherwise normal. Small calcaneal spur at the Achilles tendon insertion. XR/XR foot RT min 3V IMPRESSION: Soft tissue swelling, and focal osteopenia of the medial first MTP joint and cystic or erosive change of the first metatarsal head. Findings would be compatible with gout. Electronically signed by: Evette Weinstein MD 08/19/2025 10:34 AM [facility]
[2025-08-19 09:50] VITALS: BP 160/100; PULSE 88; O2SAT 95
[2025-08-19 09:59] VITALS: BP 141/85; PULSE 83; RESP 16; TEMP 36.7; O2SAT 99; BMI 37.8
--- NOTE | 2025-08-19 10:15 | ED.LOWEXIN ---
HPI - Extremity Injury (Lower) General Chief Complaint: Extremity Injury, Lower Stated Complaint: R FOOT PAIN/SWELLING/GOUT,CANT WALK,BP 160/100 Time Seen by Provider: 08/19/25 09:53 Source: patient and EMS Mode of arrival: EMS Limitations: no limitations History of Present Illness ED Provider: DANIELLE CAMACHO PA-C HPI Narrative: 69 year old male with pmhx significant for alcohol abuse and gout presents to the ED today for evaluation of acute on chronic right foot pain/swelling x last night. Reports hx gout, managed with allopurinol daily. Denies new injury/trauma to the foot/ankle. Admits to pain/swelling to the foot, feels like his typical gout pain. Taking tylenol at home without relief. Reports pain with bearing weight on the right foot, prompting him to come to the ED for evaluation. Denies hx DM. Denies fever, chills. Related Data Home Medications ?Medication ?Instructions ?Recorded ?Confirmed [id number] 150 mcg-vit K1 1 tab PO DAILY 06/06/25 08/13/25 30 mcg-lycop 300 mcg-lutein tablet (Centrum Minis Men 50 Plus) Previous Rx's ?Medication ?Instructions ?Recorded acetaminophen 325 mg tablet 325 mg PO QID PRN pain #60 tabs 08/07/25 (Tylenol) allopurinol 300 mg tablet 300 mg PO DAILY gout pain #60 tabs 08/07/25 folic acid 1 mg tablet 1 mg PO DAILY #90 tabs 08/07/25 ibuprofen 200 mg tablet 400 mg (2 x 200 mg) PO Q6H PRN 08/07/25 Pain #60 tabs thiamine HCl (vitamin B1) 100 mg 100 mg PO DAILY #60 caps 08/07/25 capsule cholecalciferol (vitamin D3) 62.5 62.5 mcg PO DAILY #90 caps 08/13/25 mcg (2,500 unit) capsule diclofenac sodium 1 % topical gel 2 g topical QID #100 grams 08/13/25 (Voltaren Arthritis Pain) mecobalamin (vitamin B12) 500 mcg 500 mcg PO DAILY #90 tabs 08/13/25 chewable tablet naproxen 500 mg tablet 500 mg PO BID PRN pain (scale 08/19/25 score 4-6) #20 tabs prednisone 20 mg tablet 40 mg (2 x 20 mg) PO DAILY 5 days 08/19/25 #10 tabs Allergies Allergy/AdvReac Type Severity Reaction Status Date / Time No Known Allergies Allergy Verified 08/19/25 10:00 Review of Systems Review of Systems: Yes all other systems are reviewed and are negative [facility] Past Medical History Attestation statement: The following information was validated with the patient. Source: old records reviewed and nursing notes reviewed Medical History Gout HTN (hypertension) Surgical History History of testicular surgery Social History Social History Household Members: Children and Other Household Members Other:: Daughter in law Housing: Homeless Do you presently have visiting nurse or other home services: No Alcohol intake: former Patient Tobacco Use Status: Current someday Tobacco user Tobacco use type: Cigar e-Cigarette/Vaping Use: Never Used Second Hand Smoke Exposure: No Advance Directives: Yes Advance Directives on File: Yes Advance Directives Date on File: 06/30/25 service: No Current occupational status: retired Cognitive needs: No Hearing needs: No Vision needs: No Physical Exam Vital Signs: Vital Signs: Last Vital Signs Temp 97.5 F 08/19/25 11:53 Pulse 90 08/19/25 11:53 Resp 16 08/19/25 11:53 BP 154/90 H 08/19/25 11:53 Pulse Ox 98 08/19/25 11:53 O2 Del Method Room Air 08/19/25 11:53 BMI result Body Mass Index 37.8 hypertensive, vitals are otherwise wnl General: Well appearing, in no acute distress. Skin: Warm, dry, intact. No rashes or lesions. Head: Normocephalic, atraumatic. EENT: Hearing is intact b/l. Conjunctiva clear. PERRLA. EOM intact. Moist mucous membranes.? Neck: Supple without LAD Cardiac: Chest wall symmetric. RRR Lungs: Normal respiratory effort without accessory muscle use. CTA bilaterally Back: No midline spinous or paraspinal tenderness. No step off deformity. Ext: +mild swelling noted to right mid foot extending to right 1st toe. no significant overlying erythema. diffusely ttp without deformity, crepitus, warmth. FROM intact to all toes on right foot, right ankle. no calf tenderness. no tenderness over plantar fascia or achilles tendon insertion. Neuro: AOx3. Normal speech. Course Course Course Narrative: CBC without leukocytosis or left shift. Normocytic anemia, H and H stable. Chemistry without acute electrolyte abnormality requiring intervention. No DONNA. Random glucose 132, no anion gap. Uric acid 5.7. x-ray of his right foot showing soft tissue swelling and focal osteopenia at the medial 1st MTP joint and cystic v erosive change of the 1st metatarsal head, findings compatible with gout. > patient treated with Toradol in the ED today. Placed in postop shoe for comfort. > I have sent naproxen and prednisone to pharmacy for treatment. Patient has hx of elevated liver function - will defer tx w/ colchicine. On discharge - patient states he does not feel comfortable being discharged home due to his foot pain. He would like a steroid injection - I explained to the patient that this is not done in ED and I have referred him to pain management. In the meantime, will be starting patient on Prednisone. He is refusing to step out of bed, refusing to attempt to place any weight on his right foot. He is lying in bed comfortably. Patient is requesting PT/CM consults. these have been placed. Patient is full code. [id number] -- patient has been evaluated by physical therapy. Recommending home with services. I spoke with Minna from case management. He is [facility].after discussion, patient agreeable discharged home. He will be picking up his naproxen and prednisone. Advised outpatient follow up with PCP and pain management. Patient has remained stable throughout ED visit today. Discussed worrisome signs and symptoms and when to return to the ED. All questions answered at this time. Patient is agreeable with disposition and stable for discharge. Medications Administered Discontinued Medications Generic Name Dose Route Start Last Admin Trade Name Freq PRN Reason Stop Dose Admin Ketorolac Tromethamine 30 mg 08/19/25 12:36 08/19/25 12:43 Ketorolac Tromethamine 30 Mg/Ml Vial IM 08/19/25 12:37 30 mg ONCE ONE Administration Medical Decision Making Medical Decision Making MDM Narrative: 69 year old male with pmhx significant for alcohol abuse and gout presents to the ED today for evaluation of acute on chronic right foot pain/swelling x last night. patient is hypertensive, vitals are otherwise wnl. he is well appearing, lying comfortably on the exma bed. on exam, mild swelling noted to right mid foot extending to right 1st toe. no significant overlying erythema. diffusely ttp without deformity, crepitus, warmth. FROM intact to all toes on right foot, right ankle. no calf tenderness. no tenderness over plantar fascia or achilles tendon insertion. Differential diagnosis includes arthritis, gout, pseudogout, fracture. Unlikely dislocation, Charcot foot, Lyme arthritis, septic joint. Plan for labs, xrays, pain control, re-evaluation. Differential Diagnosis Differential Diagnoses: The differential diagnosis associated with the presentation includes as above. Admission/Observation not indicated. Lab Data MDM Lab Attestation statement: I reviewed the patient's lab results. as above. 08/19/25 10:25 08/19/25 10:25 Labs: Lab Results 08/19/25 08/19/25 Range/Units 10:25 15:21 WBC 6.4 (4.8-10.8) X10*3/uL RBC 3.44 L (4.60-5.80) X10*6/uL Hgb 10.3 L (14.0-18.0) g/dl Hct 33.0 L (42.0-52.0) % MCV 95.9 (80.0-98.0) fL MCH 29.9 (27.0-33.0) pg MCHC 31.2 (31.0-36.0) g/dl RDW 17.0 H (11.0-16.0) % Plt Count 221 (160-400) X10*3/uL MPV 9.2 L (9.4-12.4) fL Immature Gran % (Auto) 0.5 H (0.0-0.4) % Neut % (Auto) 50.2 (45-73) % Lymph % (Auto) 37.4 (20-40) % [place] % (Auto) 9.0 (2-11) % Eos % (Auto) 2.3 (0-4) % Baso % (Auto) 0.6 (0-2) % Lymph # (Auto) 2.4 (1.2-4.9) X10*3/uL [place] # (Auto) 0.6 (0.1-1.2) X10*3/uL Eos # (Auto) 0.2 (0.0-0.4) X10*3/uL Baso # (Auto) 0.0 (0.0-0.2) X10*3/uL Abs Immat Gran (auto) 0.03 (0.00-0.03) X10*3/uL Absolute Neuts (auto) 3.2 (2.0-8.3) x10*3/uL Absolute Nucleated RBC 0.000 (0.0-0.012) X10*3/uL Nucleated RBC % (auto) 0.0 (0.0-0.2) /100WBC Sodium 136 (135-145) mmol/L Potassium 4.4 (3.3-5.1) mmol/L Chloride 106 (96-108) mmol/L Carbon Dioxide 23 (22-29) mmol/L Anion Gap 11 L (12-20) BUN 11 (9-16) mg/dL Creatinine 1.00 (0.5-1.4) mg/dL Estim Creat Clear Calc 82.2 Estimated GFR > 60 Random Glucose 132 H (60-115) mg/dL Uric Acid 5.7 (3.4-7.0) mg/dL Calcium 9.8 (8.4-10.2) mg/dL COVID-19 ([facility]INGA) Negative (Negative) COVID-19 Clin Com See Note Independent Interpretation I performed an independent interpretation of an: Plain X-Ray Interpretation: xr right foot without fracture Radiology Impression Discussion of test interpretation with radiology: I have reviewed the radiologist's reading. Radiologist Impression: Procedure(s): XR foot RT min 3V Accession Number(s): [id number] cc: Danielle Camacho~ Reason for Exam: right foot pain, hx gout EXAMINATION: XR FOOT, RIGHT CLINICAL INFORMATION: right foot pain, hx gout COMPARISON: None available. TECHNIQUE: AP, lateral, and oblique views of the right foot. FINDINGS: Bone alignment is normal. No fracture or dislocation. Soft tissue swelling and focal osteopenia at the medial first MTP joint. Small erosive or cystic change of the medial first metatarsal head. Findings compatible with history of gout. Joint spaces otherwise normal. Small calcaneal spur at the Achilles tendon insertion. XR/XR foot RT min 3V IMPRESSION: Soft tissue swelling, and focal osteopenia of the medial first MTP joint and cystic or erosive change of the first metatarsal head. Findings would be compatible with gout. Electronically signed by: Evette Weinstein MD 08/19/2025 10:34 AM EST Independent Historian Clinical information obtained from an independent historian. History obtained from or confirmed by: EMS External Record Review External record reviewed: Inpatient record Prescription Management I considered prescription management with: Pain Medication and Other (prednisone) Chronic Conditions Patient?s care impacted by: Other (gout) Social Determinants Patient?s care significantly limited by Social Determinants of Health including: Other Social Determinant of Health Procedures Orthopedic Splinting/Casting Injury #1: Side: right Lower Extremity Injury Location: foot Lower Extremity Immobilizer: post-op shoe Critical Care Time Critical Care Time Critical Care Time: No Discharge Plan Discharge Clinical Impression: Gout Patient Disposition: Home, Self-Care Instructions: Low Purine Diet (ED), Gout (ED) Additional Instructions: Your blood work shows elevated uric acid levels. Otherwise reassuring. Your evaluation is consistent with gout. See home care instructions. Your work up is otherwise reassuring. Prednisone is a steroid that has been sent to your pharmacy. Take this daily for the next 4 days, starting tomorrow, as you already received a dose in ED today. I am also sending naproxen, an NSAID, to your pharmacy. Do not take this with other NSAIDs such as Motrin/ibuprofen as this can cause increased risk of GI bleeding. You has been evaluated by physical therapy and case management. Physical therapy is recommending discharge home with services. You have established home services with [facility]. you will be following outpatient with them. Follow up with your primary care provider. I am also sending you a referral to pain management. Return with new or worsening symptoms. In the case of an emergency call 911. Prescriptions: New naproxen 500 mg tablet 500 mg PO BID PRN (Reason: pain (scale score 4-6)) Qty: 20 0RF prednisone 20 mg tablet 40 mg PO DAILY 5 Days Qty: 10 0RF No Action Centrum Minis Men 50 Plus [id number] mcg Tablet 1 tab PO DAILY acetaminophen [Tylenol] 325 mg tablet 325 mg PO QID PRN (Reason: pain) Qty: 60 2RF allopurinol 300 mg tablet 300 mg PO DAILY Qty: 60 2RF folic acid 1 mg tablet 1 mg PO DAILY Qty: 90 3RF ibuprofen 200 mg tablet 400 mg PO Q6H PRN (Reason: Pain) Qty: 60 3RF thiamine HCl (vitamin B1) 100 mg capsule 100 mg PO DAILY Qty: 60 3RF mecobalamin (vitamin B12) 500 mcg tablet,chewable 500 mcg PO DAILY Qty: 90 3RF diclofenac sodium [Voltaren Arthritis Pain] 1 % gel 2 g topical QID Qty: 100 2RF Rx Instructions: apply to single elbow, wrist or hand; for hand includes palm/fingers/back of hand cholecalciferol (vitamin D3) 62.5 mcg (2,500 unit) capsule 62.5 mcg PO DAILY Qty: 90 3RF Referrals: [facility] [Provider Group, Pain Management] Print Language: Afghan
[2025-08-19 10:30] LABS: MANUAL DIFF FLAG NO
[2025-08-19 10:37] LABS: Hematocrit 33.0 % (42.0-52.0); Hemoglobin 10.3 g/dl (14.0-18.0); Imm Gran Abs Auto 0.03 X10*3/uL (0.00-0.03); Imm Gran Pct Auto 0.5 % (0.0-0.4); Lymphocytes Absolute Auto 2.4 X10*3/uL (1.2-4.9); Mean Corpuscular HGB Conc 31.2 g/dl (31.0-36.0); Mean Corpuscular Hemoglobin 29.9 pg (27.0-33.0); Mean Corpuscular Volume 95.9 fL (80.0-98.0); NRBC Abs Auto 0.000 X10*3/uL (0.0-0.012); NRBC Pct Auto 0.0 /100WBC (0.0-0.2); Platelet Count 221 X10*3/uL (160-400); Red Blood Count 3.44 X10*6/uL (4.60-5.80); White Blood Count 6.4 X10*3/uL (4.8-10.8)
[2025-08-19 10:52] LABS: Anion Gap 11 (12-20); Blood Urea Nitrogen 11 mg/dL (9-16); Calcium 9.8 mg/dL (8.4-10.2); Carbon Dioxide 23 mmol/L (22-29); Chloride 106 mmol/L (96-108); Creatinine Clr Calc Pharmacy 82.2; Estimated Glomerular Filt Rate > 60; Potassium 4.4 mmol/L (3.3-5.1); Sodium 136 mmol/L (135-145)
[2025-08-19 11:27] LABS: Uric Acid 5.7 mg/dL (3.4-7.0)
[2025-08-19 11:53] VITALS: BP 154/90; PULSE 90; RESP 16; TEMP 36.4; O2SAT 98
--- NOTE | 2025-08-19 11:54 | PC.NURSE ---
attempted to have patient ambulate, states he cannot ambulate due to the pain. requesting pain medications prior to being discharged, provider aware
[2025-08-19 15:43] LABS: COVID-19 Test Negative (Negative); IDNOW Serial# 58CA691E
--- NOTE | 2025-08-19 16:49 | MHC.CM.ED ---
CM met with patient to discuss discharge planning. Pt lives with son and grandchildren. Uses a rollator. Independent. Pt is active with [facility]. Verified. PT recommends home with services. [facility] aware. Uploaded PT evaluation to agency. Pt agreeable to discharge home. Pt is calling family for transport home. D/C prescriptions sent to [facility]. Pharmacy will fill meds and deliver to patient in overflow.
[2025-08-19 18:58] VITALS: BP 154/90; PULSE 90; RESP 16; TEMP 36.4; O2SAT 98
--- OUTSIDE RECORDS SUMMARY | 2025-08-19 21:34 | XMS_ITS | Encounter Summary ---
Author Organization [employer] [facility] Address [address] [place] [address] Care Team Providers Care Fish Salter Name Role Phone Gui Watters MD Primary Care Provider [phone]- [phone] Encounter Details Date Type Department Care Team (Late st Contact Info) Description 07/16/2025 Lab Requisition [facility] Lab [address] [facility] [place] [address] Gui Watters MD [address] [place] [id number] Anemia, unspecified Social History Tobacco Use Types [...] LAB HEMETOLOGY METHOD 07/16/2025 12:00 PM EDT [facility] RBC 2.70(L) 4.50 - 5.50 M/mcL LAB HEMETOLOGY METHOD 07/16/2025 12:00 PM EDT [facility] Hemoglobin 8.6(L) 13.5 - 17.5 g/dL LAB HEMETOLOGY METHOD 07/16/2025 12:00 PM EDT [facility] Hematocrit 27.2(L) 42.0 - 54.0 % LAB HEMETOLOGY METHOD 07/16/2025 12:00 PM [facility] MCV 100.4(H) 79.0 - 98.0 FL LAB HEMETOLOGY METHOD 07/16/2025 12:00 PM EDT [facility] MCH 31.7 27.0 - 32.0 pcg LAB HEMETOLOGY METHOD 07/16/2025 12:00 PM [facility] MCHC 31.6(L) 32.0 - 37.0 g/dL LAB HEMETOLOGY METHOD 07/16/2025 12:00 PM [facility] RDW 17.1(H) 11.0 - 15.0 % LAB HEMETOLOGY METHOD 07/16/2025 12:00 PM [facility] Platelets 434(H) 130 - 400 K/mcL LAB HEMETOLOGY METHOD 07/16/2025 12:00 PM [facility] MPV 9.6 7.0 - 11.0 FL LAB HEMETOLOGY METHOD 07/16/2025 12:00 PM [facility] NRBC 0.0 <1.0 % LAB HEMETOLOGY METHOD 07/16/2025 12:00 PM [facility] NRBC Absolute 0.00 <0.10 K/mcL LAB HEMETOLOGY METHOD 07/16/2025 12:00 PM [facility] Blood Venous blood specimen / Unknown Venipuncture / Unknown 07/16/2025 8:28 AM EDT 07/16/2025 11:41 AM EDT us Gui Watters MD LAB BLOOD ORDERABLES Final Result [facility] [address] [place] [address], * Basic metabolic panel (07/16/2025 8:28 AM EDT) Sodium 139 133 - 145 mmol/L LAB CHEMISTRY METHOD 07/16/2025 12:37 PM [facility] Potassium 4.3 3.5 - 5.5 mmol/L LAB CHEMISTRY METHOD 07/16/2025 12:37 PM [facility] Chloride 107 96 - 110 mmol/L LAB CHEMISTRY METHOD 07/16/2025 12:37 PM [facility] CO2 26 21 - 32 mmol/L LAB CHEMISTRY METHOD 07/16/2025 12:37 PM [facility] Anion Gap 6 3 - 11 LAB CHEMISTRY METHOD 07/16/2025 12:37 PM [facility] Glucose 73 70 - 100 mg/dL LAB CHEMISTRY METHOD 07/16/2025 12:37 PM [facility] BUN 10 5 - 25 mg/dL LAB CHEMISTRY METHOD 07/16/2025 12:37 PM [facility] Creatinine 0.86 0.70 - 1.30 mg/dL LAB CHEMISTRY METHOD 07/16/2025 12:37 PM [facility] eGFR 94 >=60 mL/min/1. 73m2 LAB CHEMISTRY METHOD 07/16/2025 12:37 PM [facility] Comment:Calculation based on the Chronic Kidney Disease Epidemiology Collaboration (CKD-EPI) equation refit without adjustment for race. BUN/Creatinine Ratio 11.6 LAB CHEMISTRY METHOD 07/16/2025 12:37 PM [facility] Calcium 9.5 8.5 - 10.5 mg/dL LAB CHEMISTRY METHOD 07/16/2025 12:37 PM [facility] Blood Venous blood specimen / Unknown Venipuncture / Unknown 07/16/2025 8:28 AM EDT 07/16/2025 11:41 AM EDT Gui Watters MD LAB BLOOD ORDERABLES Final Result [facility] [address] [place] [address], documented in this encounter Visit Diagnoses Diagnosis Anemia, unspecified documented in this encounter Care Teams Fish Salter Relationship Specialty Start Date End Date Gui Watters MD [address] [place] [address] PCP - General Internal Medicine 07/02/25 documented as of this encounter
--- OUTSIDE RECORDS SUMMARY | 2025-08-19 21:34 | XMS_ITS | Encounter Summary ---
Author Organization [facility] Address [address] [place] [address] Care Team Providers Care Ophthalmic Medical Technologist Name Role Phone Gui Watters MD Primary Care Provider [phone]- [phone] Encounter Details Date Type Department Care Team (Late st Contact Info) Description 07/08/2025 Lab Requisition [facility] Lab [address] [facility] [place] [address] Gui Watters MD [address] [place] [address] Anemia, unspecified Social History Tobacco Use Types [...] LAB CHEMISTRY METHOD 07/09/2025 1:57 PM EDT [facility] Potassium 4.7 3.5 - 5.5 mmol/L LAB CHEMISTRY METHOD 07/09/2025 1:57 PM EDT [facility] Chloride 107 96 - 110 mmol/L LAB CHEMISTRY METHOD 07/09/2025 1:57 PM T [facility] CO2 16(L) 21 - 32 mmol/L LAB CHEMISTRY METHOD 07/09/2025 1:57 PM [facility] Anion Gap 15(H) 3 - 11 LAB CHEMISTRY METHOD 07/09/2025 1:57 PM [facility] Glucose 111(H) 70 - 100 mg/dL LAB CHEMISTRY METHOD 07/09/2025 1:57 PM [facility] BUN 13 5 - 25 mg/dL LAB CHEMISTRY METHOD 07/09/2025 1:57 PM [facility] Creatinine 0.78 0.70 - 1.30 mg/dL LAB CHEMISTRY METHOD 07/09/2025 1:57 PM [facility] LAB eGFR 97 >=60 mL/min/1. 73m2 LAB CHEMISTRY METHOD 07/09/2025 1:57 PM [facility] Comment:Calculation based on the Chronic Kidney Disease Epidemiology Collaboration (CKD-EPI) equation refit without adjustment for race. BUN/Creatinine Ratio 16.7 LAB CHEMISTRY METHOD 07/09/2025 1:57 PM [facility] Calcium 8.7 8.5 - 10.5 mg/dL LAB CHEMISTRY METHOD 07/09/2025 1:57 PM [facility] AST (SGOT) 45(H) 10 - 42 unit/L LAB CHEMISTRY METHOD 07/09/2025 1:57 PM [facility] ALT (SGPT) 53 10 - 60 unit/L LAB CHEMISTRY METHOD 07/09/2025 1:57 PM [facility] Alkaline Phosphatase 120 42 - 121 unit/L LAB CHEMISTRY METHOD 07/09/2025 1:57 PM [facility] Total Protein 7.2 6.0 - 8.0 g/dL LAB CHEMISTRY METHOD 07/09/2025 1:57 PM [facility] Albumin 2.8(L) 3.2 - 5.0 g/dL LAB CHEMISTRY METHOD 07/09/2025 1:57 PM EDT [facility] Total Bilirubin 0.3 0.0 - 1.4 mg/dL LAB CHEMISTRY METHOD 07/09/2025 1:57 PM [facility] Blood Venous blood specimen / Unknown Venipuncture / Unknown 07/09/2025 9:12 AM EDT 07/09/2025 12:00 PM EDT Gui Watters MD LAB BLOOD ORDERABLES Final Result [facility] [address] [place] [address], * (ABNORMAL) Complete blood count (07/09/2025 9:12 AM EDT) WBC 6.7 4.8 - 10.8 K/mcL LAB HEMETOLOGY METHOD 07/09/2025 12:42 PM [facility] RBC 3.20(L) 4.50 - 5.50 M/mcL LAB HEMETOLOGY METHOD 07/09/2025 12:42 PM [facility] Hemoglobin 10.5(L) 13.5 - 17.5 g/dL LAB HEMETOLOGY METHOD 07/09/2025 12:42 PM [facility] Hematocrit 33.4(L) 42.0 - 54.0 % LAB HEMETOLOGY METHOD 07/09/2025 12:42 PM [facility] MCV 103.7(H) 79.0 - 98.0 FL LAB HEMETOLOGY METHOD 07/09/2025 12:42 PM [facility] MCH 32.6(H) 27.0 - 32.0 pcg LAB HEMETOLOGY METHOD 07/09/2025 12:42 PM [facility] MCHC 31.4(L) 32.0 - 37.0 g/dL LAB HEMETOLOGY METHOD 07/09/2025 12:42 PM EDT [facility] RDW 16.7(H) 11.0 - 15.0 % LAB HEMETOLOGY METHOD 07/09/2025 12:42 PM EDT [facility] Platelets 314 130 - 400 K/mcL LAB HEMETOLOGY METHOD 07/09/2025 12:42 PM EDT [facility] MPV 10.5 7.0 - 11.0 FL LAB HEMETOLOGY METHOD 07/09/2025 12:42 PM EDT [facility] NRBC 0.0 <1.0 % LAB HEMETOLOGY METHOD 07/09/2025 12:42 PM EDT [facility] NRBC Absolute 0.00 <0.10 K/mcL LAB HEMETOLOGY METHOD 07/09/2025 12:42 PM EDT [facility] Blood Venous blood specimen / Unknown Venipuncture / Unknown 07/09/2025 9:12 AM EDT 07/09/2025 12:00 PM EDT us Gui Watters MD LAB BLOOD ORDERABLES Final Result [facility] [address] [place] [address], documented in this encounter Visit Diagnoses Diagnosis Anemia, unspecified documented in this encounter Care Teams Ophthalmic Medical Technologist Relationship Specialty Start Date End Date Gui Watters MD [address] [place] [id number] PCP - General Internal Medicine 07/02/25 documented as of this encounter
--- OUTSIDE RECORDS SUMMARY | 2025-08-19 21:34 | XMS_ITS | Encounter Summary ---
Author Organization [employer] [facility] Address [address] [place] [address] Care Team Providers Care Reconnaissance Man Name Role Phone Gui Watters MD Primary Care Provider +1- [phone] Encounter Details Date Type Department Care Team (Late st Contact Info) Description 07/22/[address] [facility] Lab [address] [facility] [place] [address] Gui Watters MD [address] [place] [id number] Anemia, unspecified Social History Tobacco Use Types [...] LAB HEMETOLOGY METHOD 07/23/2025 11:54 AM EDT [facility] RBC 3.00(L) 4.50 - 5.50 M/mcL LAB HEMETOLOGY METHOD 07/23/2025 11:54 AM EDT [facility] LAB Hemoglobin 9.5(L) 13.5 - 17.5 g/dL LAB HEMETOLOGY METHOD 07/23/2025 11:54 AM EDT [facility] LAB Hematocrit 30.9(L) 42.0 - 54.0 % LAB HEMETOLOGY METHOD 07/23/2025 11:54 AM EDT [facility] LAB MCV 101.6(H) 79.0 - 98.0 FL LAB HEMETOLOGY METHOD 07/23/2025 11:54 AM EDT [facility] LAB MCH 31.3 27.0 - 32.0 pcg LAB HEMETOLOGY METHOD 07/23/2025 11:54 AM EDT [facility] LAB MCHC 30.7(L) 32.0 - 37.0 g/dL LAB HEMETOLOGY METHOD 07/23/2025 11:54 AM [facility] LAB RDW 18.0(H) 11.0 - 15.0 % LAB HEMETOLOGY METHOD 07/23/2025 11:54 AM EDT [facility] LAB Platelets 333 130 - 400 K/mcL LAB HEMETOLOGY METHOD 07/23/2025 11:54 AM T [facility] LAB MPV 9.8 7.0 - 11.0 FL LAB HEMETOLOGY METHOD 07/23/2025 11:54 AM [facility] LAB NRBC 0.0 <1.0 % LAB HEMETOLOGY METHOD 07/23/2025 11:54 AM EDT [facility] LAB NRBC Absolute 0.00 <0.10 K/mcL LAB HEMETOLOGY METHOD 07/23/2025 11:54 AM [facility] LAB Blood Venous blood specimen / Unknown Venipuncture / Unknown 07/23/2025 10:09 AM EDT 07/23/2025 11:39 AM EDT us Gui Watters MD LAB BLOOD ORDERABLES Final Result [facility] LAB [address] [place] [address], [place] [phone] * (ABNORMAL) Basic metabolic panel (07/23/2025 10:09 AM EDT) Sodium 140 133 - 145 mmol/L LAB CHEMISTRY METHOD 07/23/2025 1:36 PM [facility] Potassium 3.8 3.5 - 5.5 mmol/L LAB CHEMISTRY METHOD 07/23/2025 1:36 PM [facility] Chloride 107 96 - 110 mmol/L LAB CHEMISTRY METHOD 07/23/2025 1:36 PM [facility] CO2 26 21 - 32 mmol/L LAB CHEMISTRY METHOD 07/23/2025 1:36 PM [facility] Anion Gap 7 3 - 11 LAB CHEMISTRY METHOD 07/23/2025 1:36 PM [facility] Glucose 103(H) 70 - 100 mg/dL LAB CHEMISTRY METHOD 07/23/2025 1:36 PM [facility] BUN 16 5 - 25 mg/dL LAB CHEMISTRY METHOD 07/23/2025 1:36 PM [facility] Creatinine 0.79 0.70 - 1.30 mg/dL LAB CHEMISTRY METHOD 07/23/2025 1:36 PM [facility] LAB eGFR 96 >=60 mL/min/1. 73m2 LAB CHEMISTRY METHOD 07/23/2025 1:36 PM [facility] LAB Comment:Calculation based on the Chronic Kidney Disease Epidemiology Collaboration (CKD-EPI) equation refit without adjustment for race. BUN/Creatinine Ratio 20.3 LAB CHEMISTRY METHOD 07/23/2025 1:36 PM [facility] Calcium 9.0 8.5 - 10.5 mg/dL LAB CHEMISTRY METHOD 07/23/2025 1:36 PM [facility] Blood Venous blood specimen / Unknown Venipuncture / Unknown 07/23/2025 10:09 AM EDT 07/23/2025 11:39 AM EDT Gui Watters MD LAB BLOOD ORDERABLES Final Result [facility] LAB [address] [place] [address], documented in this encounter Visit Diagnoses Diagnosis Anemia, unspecified documented in this encounter Care Teams Reconnaissance Man Relationship Specialty Start Date End Date Gui Watters MD [address] [place] [address] PCP - General Internal Medicine 07/02/25 documented as of this encounter
--- OUTSIDE RECORDS SUMMARY | 2025-08-19 21:34 | XMS_ITS | Clinical Summary ---
Author Organization [address] [facility] Address [address] [place] [address] Phone Care Team Providers Care Lens Generating Machine Tender Name Role Phone Gui Watters MD Primary Care Provider +1- [phone] Encounters Date Type Department Care Team Description 07/29/2025 Lab Requisition [facility] Lab [address] [place] [address] Gui Watters MD Anemia, unspecified 07/22/2025 Lab Requisition [facility] Lab [address] [place] [address] Gui Watters MD Anemia, unspecified 07/16/2025 Lab Requisition [facility] Lab [address] [place] [address] Gui Watters MD Anemia, unspecified 07/09/2025 Lab Requisition [facility] Lab [address] [place] [address] Gui Watters MD Anemia, unspecified 07/08/2025 Lab Requisition [facility] Lab [address] [place] [address] Gui Watters MD Anemia, unspecified 07/02/2025 Lab Requisition [facility] Lab [address] [place] [address] Gui Watters MD Anemia, unspecified from Last [...] Depression Screening 10/01/2024 COVID-19 Vaccine (1 - 2024-2 6 season) 2025 Influenza Vaccine (#1) 2025 Abdominal [...] K/mcL LAB HEMETOLOGY METHOD 07/23/2025 11:54 AM [facility] LAB RBC 3.00(L) 4.50 - 5.50 M/mcL LAB HEMETOLOGY METHOD 07/23/2025 11:54 AM [facility] LAB Hemoglobin 9.5(L) 13.5 - 17.5 g/dL LAB HEMETOLOGY METHOD 07/23/2025 11:54 AM [facility] LAB Hematocrit 30.9(L) 42.0 - 54.0 % LAB HEMETOLOGY METHOD 07/23/2025 11:54 AM [facility] LAB MCV 101.6(H) 79.0 - 98.0 FL LAB HEMETOLOGY METHOD 07/23/2025 11:54 AM [facility] LAB MCH 31.3 27.0 - 32.0 pcg LAB HEMETOLOGY METHOD 07/23/2025 11:54 AM EDT [facility] LAB MCHC 30.7(L) 32.0 - 37.0 g/dL LAB HEMETOLOGY METHOD 07/23/2025 11:54 AM EDT [facility] LAB RDW 18.0(H) 11.0 - 15.0 % LAB HEMETOLOGY METHOD 07/23/2025 11:54 AM EDT [facility] LAB Platelets 333 130 - 400 K/mcL LAB HEMETOLOGY METHOD 07/23/2025 11:54 AM EDT [facility] LAB MPV 9.8 7.0 - 11.0 FL LAB HEMETOLOGY METHOD 07/23/2025 11:54 AM EDT [facility] LAB NRBC 0.0 <1.0 % LAB HEMETOLOGY METHOD 07/23/2025 11:54 AM EDT [facility] LAB NRBC Absolute 0.00 <0.10 K/mcL LAB HEMETOLOGY METHOD 07/23/2025 11:54 AM T [facility] Blood Venous blood specimen / Unknown Venipuncture / Unknown 07/23/2025 10:09 AM EDT 07/23/2025 11:39 AM EDT Gui Watters MD LAB BLOOD ORDERABLES Final Result [facility] [address] [place] [address], * (ABNORMAL) Basic metabolic panel (07/23/2025 10:09 AM EDT) Only the most recent of2 resultswithin the time period is included. Sodium 140 133 - 145 mmol/L LAB CHEMISTRY METHOD 07/23/2025 1:36 PM EDT [facility] LAB Potassium 3.8 3.5 - 5.5 mmol/L LAB CHEMISTRY METHOD 07/23/2025 1:36 PM [facility] LAB Chloride 107 96 - 110 mmol/L LAB CHEMISTRY METHOD 07/23/2025 1:36 PM [facility] LAB CO2 26 21 - 32 mmol/L LAB CHEMISTRY METHOD 07/23/2025 1:36 PM [facility] LAB Anion Gap 7 3 - 11 LAB CHEMISTRY METHOD 07/23/2025 1:36 PM [facility] LAB Glucose 103(H) 70 - 100 mg/dL LAB CHEMISTRY METHOD 07/23/2025 1:36 PM [facility] LAB BUN 16 5 - 25 mg/dL LAB CHEMISTRY METHOD 07/23/2025 1:36 PM [facility] LAB Creatinine 0.79 0.70 - 1.30 mg/dL LAB CHEMISTRY METHOD 07/23/2025 1:36 PM [facility] LAB eGFR 96 >=60 mL/min/1. 73m2 LAB CHEMISTRY METHOD 07/23/2025 1:36 PM [facility] LAB Comment:Calculation based on the Chronic Kidney Disease Epidemiology Collaboration (CKD-EPI) equation refit without adjustment for race. BUN/Creatinine Ratio 20.3 LAB CHEMISTRY METHOD 07/23/2025 1:36 PM [facility] LAB Calcium 9.0 8.5 - 10.5 mg/dL LAB CHEMISTRY METHOD 07/23/2025 1:36 PM [facility] LAB Blood Venous blood specimen / Unknown Venipuncture / Unknown 07/23/2025 10:09 AM EDT 07/23/2025 11:39 AM EDT us Gui Watters MD LAB BLOOD ORDERABLES Final Result [facility] LAB [address] [place] [address], * (ABNORMAL) Comprehensive metabolic panel (07/09/2025 9:12 AM EDT) Only the most recent of2 resultswithin the time period is included. Sodium 138 133 - 145 mmol/L LAB CHEMISTRY METHOD 07/09/2025 1:57 PM [facility] LAB Potassium 4.7 3.5 - 5.5 mmol/L LAB CHEMISTRY METHOD 07/09/2025 1:57 PM [facility] LAB Chloride 107 96 - 110 mmol/L LAB CHEMISTRY METHOD 07/09/2025 1:57 PM [facility] LAB CO2 16(L) 21 - 32 [...] LAB CHEMISTRY METHOD 07/09/2025 1:57 PM EDT [facility] ALT (SGPT) 53 10 - 60 unit/L LAB CHEMISTRY METHOD 07/09/2025 1:57 PM EDT [facility] LAB Alkaline Phosphatase 120 42 - 121 unit/L LAB CHEMISTRY METHOD 07/09/2025 1:57 PM EDT [facility] Total Protein 7.2 6.0 - 8.0 g/dL LAB CHEMISTRY METHOD 07/09/2025 1:57 PM EDT [facility] Albumin 2.8(L) 3.2 - 5.0 g/dL LAB CHEMISTRY METHOD 07/09/2025 1:57 PM EDT [facility] Total Bilirubin 0.3 0.0 - 1.4 mg/dL LAB CHEMISTRY METHOD 07/09/2025 1:57 PM EDT [facility] Blood Venous blood specimen / Unknown Venipuncture / Unknown 07/09/2025 9:12 AM EDT 07/09/2025 12:00 PM EDT us Gui Watters MD LAB BLOOD ORDERABLES Final Result Performing Organization Address City/[facility]/ZIP Co de Phone Number [facility] [address] [place] [address], * Thyroid stimulating hormone with reflex to free t4 and free t3 (07/02/2025 7:35 AM EDT) TSH 3.41 0.40 - 4.00 mcIU/mL LAB CHEMISTRY METHOD 07/02/2025 11:25 AM EDT [facility] LAB Blood Venous blood specimen / Unknown Venipuncture / Unknown 07/02/2025 7:35 AM EDT 07/02/2025 9:15 AM EDT us Gui Watters MD LAB BLOOD ORDERABLES Final Result [facility] [address] [place] [address], [place] [phone] * Uric acid (07/02/2025 7:35 AM EDT) Uric Acid 5.4 3.7 - 9.2 mg/dL LAB CHEMISTRY METHOD 07/02/2025 10:28 AM EDT [facility] Blood Venous blood specimen / Unknown Venipuncture / Unknown 07/02/2025 7:35 AM EDT 07/02/2025 9:15 AM EDT us Gui Watters MD LAB BLOOD ORDERABLES Final Result [facility] ([facility]) [facility] [address] [place] [address], [place] [phone] from Last 3 Months Insurance [employer] Care Teams Lens Generating Machine Tender Relationship Specialty Start Date End Date Gui Watters MD [address] [place] [address] PCP - General Internal Medicine 07/02/25
--- OUTSIDE RECORDS SUMMARY | 2025-08-19 21:34 | XMS_ITS | Encounter Summary ---
Author Organization [facility] Address [address] [place] [address] Care Team Providers Care Mid Level Game Designer Name Role Phone Gui Watters MD Primary Care Provider +1- [phone] Encounter Details Date Type Department Care Team (Late st Contact Info) Description 07/29/2025 Lab Requisition [facility] Lab [address] [facility] [address] [place] [address] Gui Watters MD [address] [place] [address] Anemia, unspecified Social History Tobacco Use Types [...] unspecified documented in this encounter Care Teams Mid Level Game Designer Relationship Specialty Start Date End Date Gui Watters MD [address] [place] [address] PCP - General Internal Medicine 07/02/25 documented as of this encounter
--- OUTSIDE RECORDS SUMMARY | 2025-08-19 21:34 | XMS_ITS | Encounter Summary ---
Author Organization [employer] Address [address] [place] [address] Care Team Providers Care Manager Placement Name Role Phone Gui Watters MD Primary Care Provider +1- [phone] Encounter Details Date Type Department Care Team (Late st Contact Info) Description 07/02/2025 Lab Requisition [facility] - Main Lab [address] [facility] [place] [address] Gui Watters MD [address] [place] [address] Anemia, unspecified Social History Tobacco Use Types [...] LAB CHEMISTRY METHOD 07/02/2025 10:28 AM EDT [facility] LAB Blood Venous blood specimen / Unknown Venipuncture / Unknown 07/02/2025 7:35 AM EDT 07/02/2025 9:15 AM EDT us Gui Watters MD LAB BLOOD ORDERABLES Final Result Performing Organization Address [facility]/ZIP Co de Phone Number [facility] [address] [place] [address], [place] [phone] * Thyroid stimulating hormone with reflex to free t4 and free t3 (07/02/2025 7:35 AM EDT) Pathologist [facility] TSH 3.41 0.40 - 4.00 mcIU/mL LAB CHEMISTRY METHOD 07/02/2025 11:[address] [facility] LAB Blood Venous blood specimen / Unknown Venipuncture / Unknown 07/02/2025 7:35 AM EDT 07/02/2025 9:15 AM EDT us Gui Watters MD LAB BLOOD ORDERABLES Final Result Performing Organization Address [facility]/ZIP Co de Phone Number [facility] [address] [place] [address], [place] [phone] * (ABNORMAL) Comprehensive metabolic panel (07/02/2025 7:35 AM EDT) Sodium 135 133 - 145 mmol/L LAB CHEMISTRY METHOD 07/02/2025 10:[address] [facility] Potassium 3.7 3.5 - 5.5 mmol/L LAB CHEMISTRY METHOD 07/02/2025 10:[address] [facility] Chloride 105 96 - 110 mmol/L LAB CHEMISTRY METHOD 07/02/2025 10:[address] [facility] CO2 22 21 - 32 mmol/L LAB CHEMISTRY METHOD 07/02/2025 10:[address] [facility] Anion Gap 8 3 - 11 LAB CHEMISTRY METHOD 07/02/2025 10:31 AM [facility] LAB Glucose 105(H) 70 - 100 mg/dL LAB CHEMISTRY METHOD 07/02/2025 10:31 AM [facility] BUN 10 5 - 25 mg/dL LAB CHEMISTRY METHOD 07/02/2025 10:31 AM [facility] LAB Creatinine 0.71 0.70 - 1.30 mg/dL LAB CHEMISTRY METHOD 07/02/2025 10:31 AM [facility] LAB eGFR 99 >=60 mL/min/1. 73m2 LAB CHEMISTRY METHOD 07/02/2025 10:31 AM [facility] LAB Comment:Calculation based on the Chronic Kidney Disease Epidemiology Collaboration (CKD-EPI) equation refit without adjustment for race. BUN/Creatinine Ratio 14.1 LAB CHEMISTRY METHOD 07/02/2025 10:31 AM [facility] Calcium 8.8 8.5 - 10.5 mg/dL LAB CHEMISTRY METHOD 07/02/2025 10:31 AM [facility] LAB AST (SGOT) 39 10 - 42 unit/L LAB CHEMISTRY METHOD 07/02/2025 10:31 AM [facility] ALT (SGPT) 39 10 - 60 unit/L LAB CHEMISTRY METHOD 07/02/2025 10:31 AM [facility] LAB Alkaline Phosphatase 109 42 - 121 unit/L LAB CHEMISTRY METHOD 07/02/2025 10:31 AM [facility] LAB Total Protein 6.6 6.0 - 8.0 g/dL LAB CHEMISTRY METHOD 07/02/2025 10:31 AM [facility] Albumin 2.8(L) 3.2 - 5.0 g/dL LAB CHEMISTRY METHOD 07/02/2025 10:31 AM [facility] LAB Total Bilirubin 0.6 0.0 - 1.4 mg/dL LAB CHEMISTRY METHOD 07/02/2025 10:31 AM [facility] LAB Blood Venous blood specimen / Unknown Venipuncture / Unknown 07/02/2025 7:35 AM EDT 07/02/2025 9:15 AM EDT Gui Watters MD LAB BLOOD ORDERABLES Final Result [facility] [address] [place] [address], * (ABNORMAL) Complete blood count (07/02/2025 7:35 AM EDT) WBC 9.1 4.8 - 10.8 K/mcL LAB HEMETOLOGY METHOD 07/02/2025 9:[address] [facility] RBC 2.80(L) 4.50 - 5.50 M/mcL LAB HEMETOLOGY METHOD 07/02/2025 9:[address] [facility] Hemoglobin 9.2(L) 13.5 - 17.5 g/dL LAB HEMETOLOGY METHOD 07/02/2025 9:43 AM [facility] LAB Hematocrit 28.2(L) 42.0 - 54.0 % LAB HEMETOLOGY METHOD 07/02/2025 9:43 AM [facility] LAB MCV 101.8(H) 79.0 - 98.0 FL LAB HEMETOLOGY METHOD 07/02/2025 9:[address] [facility] MCH 33.2(H) 27.0 - 32.0 pcg LAB HEMETOLOGY METHOD 07/02/2025 9:[address] [facility] MCHC 32.6 32.0 - 37.0 g/dL LAB HEMETOLOGY METHOD 07/02/2025 9:43 AM [facility] RDW 14.9 11.0 - 15.0 % LAB HEMETOLOGY METHOD 07/02/2025 9:[address] [facility] Platelets 263 130 - 400 K/mcL LAB HEMETOLOGY METHOD 07/02/2025 9:[address] [facility] MPV 10.9 7.0 - 11.0 FL LAB HEMETOLOGY METHOD 07/02/2025 9:[address] [facility] NRBC 0.0 <1.0 % LAB HEMETOLOGY METHOD 07/02/2025 9:[address] [facility] NRBC Absolute 0.00 <0.10 K/mcL LAB HEMETOLOGY METHOD 07/02/2025 9:[address] [facility] Blood Venous blood specimen / Unknown Venipuncture / Unknown 07/02/2025 7:35 AM EDT 07/02/2025 9:15 AM EDT Gui Watters MD LAB BLOOD ORDERABLES Final Result [facility] [address] [place] [address], documented in this encounter Visit Diagnoses Diagnosis Anemia, unspecified documented in this encounter Care Teams Manager Placement Relationship Specialty Start Date End Date Gui Watters MD [address] [place] [id number] PCP - General Internal Medicine 07/02/25 documented as of this encounter
--- OUTSIDE RECORDS SUMMARY | 2025-08-19 21:34 | XMS_ITS | Encounter Summary ---
Author Organization [facility] Address [address] [place] [address] Care Team Providers Care Clam Grower Name Role Phone Gui Watters MD Primary Care Provider +1- [phone] Encounter Details Date Type Department Care Team (Late st Contact Info) Description 07/09/2025 Lab Requisition [facility] - Main Lab [address] [facility] [place] [address] Gui Watters MD [address] [place] [address] Anemia, unspecified Social History Tobacco Use Types [...] unspecified documented in this encounter Care Teams Clam Grower Relationship Specialty Start Date End Date Gui Watters MD [address] [place] [address] PCP - General Internal Medicine 07/02/25 documented as of this encounter
== END 2025-08-19 18:55 | disposition home or self-care (01) ==
PROVIDERS: Physician Assistant Medical; Emergency Provider Emergency Medicine; PCP Internal Medicine
DX: M10.9 Gout, unspecified (principal); M79.671 Pain in right foot; R60.0 Localized edema; Z03.818 Encounter for observation for suspected exposure to other biological agents ruled out; I10 Essential (primary) hypertension; Z79.899 Other long term (current) drug therapy
CPT/HCPCS: 36415; 73630; 80048; 84550; 85025; 87635; 96372; 97161; 99284; J1885

== ENCOUNTER → 2025-08-19 10:17 | Outpatient (BNV) | payer MEDICARE, SELFPAY | PROVIDERS: Emergency Provider Emergency Medicine; PCP Internal Medicine; Visit Provider Radiology Diagnostic Radiology | DX: M79.89 Other specified soft tissue disorders (principal); M85.871 Other specified disorders of bone density and structure, right ankle and foot | CPT/HCPCS: 73630 ==

== ENCOUNTER 2025-09-09 13:39 | Outpatient (AMB) | payer MEDICARE, SELFPAY ==
[2025-09-09 13:48] VITALS: BP 124/68; PULSE 89; RESP 18; O2SAT 97; BMI 39.9
--- NOTE | 2025-09-09 13:48 | MHC.PC.OV ---
Vital Signs 09/09/25 13:48 Height 5 ft 7 in Weight 254 lb 8 oz BMI 39.9 BP 124/68 Blood Pressure Location Lt brachial Position Sitting Respiration 18 Pulse 89 Pulse Source Pulse Oximeter Temp Source Temporal Artery Scan Pulse Oximetry (%) 97 Oxygen Delivery Method Room Air Intake Visit Reasons: 1 Month Follow up Aids Nurse Required: No Accompanied by: Self / Same As Patient Allergies No Known Allergies Allergy (Verified 09/09/25 13:48) Medication List - Last Reconciled 09/09/25 by Yasmani Molina MD acetaminophen (Tylenol) 325 mg PO QID PRN allopurinol 300 mg PO DAILY cholecalciferol (vitamin D3) 62.5 mcg PO DAILY diclofenac sodium 1% (Voltaren Arthritis Pain) 2 grams topical QID folic acid 1 mg PO DAILY gabapentin 100 mg PO BEDTIME ibuprofen 400 mg (2 x 200 mg) PO Q6H PRN lisinopril 10 mg PO DAILY mecobalamin (vitamin B12) 500 mcg PO DAILY [id number] mcg (Centrum Minis Men 50 Plus) 1 tab PO DAILY naproxen 500 mg PO BID PRN thiamine HCl (vitamin B1) 100 mg PO DAILY Tobacco use date assessed: 09/09/25 Fall risk assessment: 1 Fall in past year Last assessed Fall Risk: 09/09/25 Dental Screening Dental Screen Date: 09/09/25 Did you have a dental visit in the last 12 months?: No Did you have a dental problem in the last 6 months where you did not have access to dental care?: No Was dental information given to patient?: No HPI HPI Comments History of Present Illness Details The patient is a 70 year old male with PMH of gout, AUD, anemia, vit D deficiency, presenting for follow-up of right foot gout. He was recently seen in the emergency department for what was diagnosed as gout, where he was treated with naproxen and five days course of prednisone, which provided significant relief. He reports the foot is much better, though he still has some residual pain and describes his toe as feeling tight, with some limited movement. He has completed the course of prednisone. The patient was requesting Oxycodone in the past for his pain. Due to his history of AUD, Oxycodone is contra-indicated due to history of addiction in the past. 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 He is prescribed folic acid and takes a multivitamin to help improve his blood counts. He is not taking iron supplements as his iron levels have been good. Regarding medications, the patient takes allopurinol regularly for gout and has gabapentin for neuropathic pain. He does not take Tylenol. He is out of vitamin D and thiamine (vitamin B1). He has an upcoming appointment with a pain specialist on October 02 and a colonoscopy scheduled for November 27. [facility] Medical History Gout HTN (hypertension) Surgical History History of testicular surgery Social History Household Members: Children and Other Household Members Other:: Daughter in law Housing: Homeless Do you presently have visiting nurse or other home services: No Alcohol intake: former Patient Tobacco Use Status: Current someday Tobacco user Tobacco use type: Cigar e-Cigarette/Vaping Use: Never Used Second Hand Smoke Exposure: No Advance Directives Date on File: 06/30/25 service: No Current occupational status: retired Cognitive needs: No Hearing needs: No Vision needs: No Questionnaire Thrive Questionnaire Date Thrive assessed: 09/09/25 I am a: Patient What is your living situation today?: I have a steady place to live Within the past 12 months, did the food you bought not last and you didn't have the money to get more?: Never true Within the past 12 months, did you worry whether your food would run out before you got money to buy more?: Never true Do you have trouble paying for medicines?: No Do you have trouble getting transportation to medical appointments?: No Do you have trouble paying your heating and electricity bill?: No Do you have trouble taking care of your child, family member or friend?: No Do you have trouble with day-to-day activities such as bathing, preparing meals, shopping, managing finances, etc.?: No Are you currently unemployed and looking for a job?: No Are you interested in more education?: No Please select the resources that you would like help with: None Currently or been in a relationship where the following occur: No concerns reported THRIVE Score: 0 TATE-7 AMB Questionnaire TATE-7 Date TATE - 7 assessed: 08/07/25 Source: Developed by Drs. Jakub Macias, Sheila Tyson, Haider Villagran and colleagues, with an educational bea from [employer]. Review of Systems Const Details: As per HPI. Physical exam (Primary Care) Vital Signs: Last Vital Signs Pulse 89 09/09/25 13:48 Resp 18 09/09/25 13:48 BP 124/68 09/09/25 13:48 Pulse Ox 97 09/09/25 13:48 Oxygen Delivery Method Room Air 09/09/25 13:48 BMI result Body Mass Index 39.9 Tobacco/Smoking Status: Tobacco use Status Tobacco use date assessed 09/09/25 09/09/25 13:49 Patient Tobacco Use Status Current someday Tobacco 09/09/25 13:49 Tobacco use type Cigar 09/09/25 13:49 e-Cigarette/Vaping Use Never Used 09/09/25 13:49 Thrive Assessment: Date of Thrive Assessment Date Thrive assessed 09/09/25 09/09/25 13:49 Currently or been in a relationship where the following occur: No concerns reported Const Other: Pertinent findings are in BOLD GENERAL APPEARANCE NAD, activity normal for age, well developed/ well nourished, no cyanosis, pallor, or diaphoresis. EYES lids/conjunctiva normal. EARS/NOSE/THROAT Mucous membranes moist, nares normal, lips/teeth normal uvula midline without oral pharyngeal erythema, exudate or swelling TMs normal bilaterally. No lymphangitis/lymphedema. HEAD/NECK normocephalic atraumatic, no facial trauma, neck is supple. RESPIRATORY respiratory effort normal, speaks in full sentences, no tripod position, no accessory muscle use. Lungs clear to auscultation without rhonchi, wheezes, rales CARDIAC Regular rate and rhythm, no edema. ABDOMINAL Soft, ND/NT. No evidence of fluid wave. No pulsatile masses on exam, rebound tenderness, Evangelista sign or pain over Mcburney's point. MUSCLES/EXTREMITIES No abnormal range of motion, no swelling. Right foot swelling. Patient uses walker to ambulate. SKIN Warm, pink and dry. No rashes, dermatoses, petechiae or lesions. NEUROLOGICAL Speech is clear and appropriate. Normal level of consciousness. Gait and coordination are normal. 5/5 strength in all extremities. PSYCH Normal mood and affect. 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 - Continue allopurinol for long-term management. - A new prescription for naproxen 500 mg BID will be sent for acute pain. (2) Foot pain: Code(s): M79.673 - Pain in unspecified foot Category: Medical Qualifiers: Laterality: right Qualified Code(s): M79.671 - Pain in right foot Plan: - A prescription for gabapentin 100 mg to be taken at bedtime has been sent to the pharmacy. - The patient has an appointment with a neckties painter on October 02. - Oxycodone is Contraindicated knowing ther history of substance use disorder in the past. - The patient is continuing with home physical therapy. (3) HTN (hypertension): Code(s): I10 - Essential (primary) hypertension Category: Medical Qualifiers: Hypertension type: primary hypertension Qualified Code(s): I10 - Essential (primary) hypertension Plan: - The patient's home blood pressure readings have been elevated, with systolic pressures ranging from 139 to 156 mmHg. - A new prescription for lisinopril 10 mg daily will be started. (4) Anemia: Comment: 2/2 Alcohol use Code(s): D64.9 - Anemia, unspecified Category: Medical Qualifiers: Anemia type: folate deficiency Folate deficiency anemia type: dietary Qualified Code(s): D52.0 - Dietary folate deficiency anemia Plan: - The anemia is likely due to chronic alcohol use. - The patient will continue taking folic acid and a multivitamin. - Iron supplementation is not needed as iron levels are normal. Plan I reviewed the patient's recent visit to the emergency department for gout, and we discussed the improvement in his symptoms with naproxen and prednisone. I explained that his lab results show an improved uric acid level, but his blood pressure is elevated, necessitating a new medication, lisinopril. We discussed that his anemia is likely from chronic alcohol use and that continuing folic acid and a multivitamin should help. I have sent prescriptions for naproxen, gabapentin, lisinopril, and vitamin D. We also confirmed his upcoming appointments with pain management on October 02 and for a colonoscopy on November 27, and advised that the colonoscopy is preferable to a Cologuard test. I advised the patient that the goal for pain management is not zero pain, but to manage severe pain. A follow-up visit is scheduled for six months, but he can call sooner if needed. Orders: Orders Hemoglobin A1c 12 Months Z00.00 - Encounter for general adult medical examination without abnormal findings Lipid Panel 12 Months Z00.00 - Encounter for general adult medical examination without abnormal findings TSH reflex Free T4 12 Months Z00.00 - Encounter for general adult medical examination without abnormal findings Complete Blood Count no Diff 12 Months Z00.00 - Encounter for general adult medical examination without abnormal findings Comprehensive Met. Panel 12 Months Z00.00 - Encounter for general adult medical examination without abnormal findings Vitamin B12 and Folate 12 Months D64.9 - Anemia, unspecified, Z00.00 - Encounter for general adult medical examination without abnormal findings IRON PROFILE 12 Months Z00.00 - Encounter for general adult medical examination without abnormal findings Medications: New gabapentin 100 mg PO BEDTIME 30 caps 3RF lisinopril 10 mg PO DAILY 60 tabs 3RF Refilled naproxen 500 mg PO BID PRN 20 tabs 0RF pain (scale score 4-6) cholecalciferol (vitamin D3) 62.5 mcg PO DAILY 90 caps 3RF thiamine HCl (vitamin B1) 100 mg PO DAILY 60 caps 3RF naproxen 500 mg PO BID PRN 30 tabs 3RF pain (scale score 4-6) Discontinued gabapentin Taper: Take 1 tab of 100 mg two times per day for three days. Then take 1 tab of 100 mg one time per day for 2 days. Discontinued Reason: Duplicate 100 mg PO DAILY 30 tabs 0RF
--- OUTSIDE RECORDS SUMMARY | 2025-09-09 21:13 | XMS_ITS | Encounter Summary ---
Author Organization [employer] [facility] Address [address] [place] [address] Care Team Providers Care Silk Screen Printer Name Role Phone Gui Watters MD Primary Care Provider [phone]- [phone] Encounter Details Date Type Department Care Team (Late st Contact Info) Description 07/16/2025 Lab Requisition [facility] Lab [address] [facility] [place] [address] Gui Watters MD [address] [place] [phone] Anemia, unspecified Social History Tobacco Use Types [...] LAB HEMETOLOGY METHOD 07/16/2025 12:00 PM EDT [facility] LAB RBC 2.70(L) 4.50 - 5.50 M/mcL LAB HEMETOLOGY METHOD 07/16/2025 12:00 PM EDT [facility] LAB Hemoglobin 8.6(L) 13.5 - 17.5 g/dL LAB HEMETOLOGY METHOD 07/16/2025 12:00 PM EDT [facility] LAB Hematocrit 27.2(L) 42.0 - 54.0 % LAB HEMETOLOGY METHOD 07/16/2025 12:00 PM [facility] LAB MCV 100.4(H) 79.0 - 98.0 FL LAB HEMETOLOGY METHOD 07/16/2025 12:00 PM EDT [facility] LAB MCH 31.7 27.0 - 32.0 pcg LAB HEMETOLOGY METHOD 07/16/2025 12:00 PM [facility] LAB MCHC 31.6(L) 32.0 - 37.0 g/dL LAB HEMETOLOGY METHOD 07/16/2025 12:00 PM [facility] LAB RDW 17.1(H) 11.0 - 15.0 % LAB HEMETOLOGY METHOD 07/16/2025 12:00 PM [facility] LAB Platelets 434(H) 130 - 400 K/mcL LAB HEMETOLOGY METHOD 07/16/2025 12:00 PM [facility] LAB MPV 9.6 7.0 - 11.0 FL LAB HEMETOLOGY METHOD 07/16/2025 12:00 PM [facility] LAB NRBC 0.0 <1.0 % LAB HEMETOLOGY METHOD 07/16/2025 12:00 PM [facility] LAB NRBC Absolute 0.00 <0.10 K/mcL LAB HEMETOLOGY METHOD 07/16/2025 12:00 PM [facility] LAB Blood Venous blood specimen / Unknown Venipuncture / Unknown 07/16/2025 8:28 AM EDT 07/16/2025 11:41 AM EDT us Gui Watters MD LAB BLOOD ORDERABLES Final Result [facility] LAB [address] [place] [address], * Basic metabolic panel (07/16/2025 8:28 AM EDT) Sodium 139 133 - 145 mmol/L LAB CHEMISTRY METHOD 07/16/2025 12:37 PM [facility] LAB Potassium 4.3 3.5 - 5.5 mmol/L LAB CHEMISTRY METHOD 07/16/2025 12:37 PM [facility] LAB Chloride 107 96 - 110 mmol/L LAB CHEMISTRY METHOD 07/16/2025 12:37 PM [facility] LAB CO2 26 21 - 32 mmol/L LAB CHEMISTRY METHOD 07/16/2025 12:37 PM [facility] LAB Anion Gap 6 3 - 11 LAB CHEMISTRY METHOD 07/16/2025 12:37 PM [facility] LAB Glucose 73 70 - 100 mg/dL LAB CHEMISTRY METHOD 07/16/2025 12:37 PM [facility] LAB BUN 10 5 - 25 mg/dL LAB CHEMISTRY METHOD 07/16/2025 12:37 PM [facility] LAB Creatinine 0.86 0.70 - 1.30 mg/dL LAB CHEMISTRY METHOD 07/16/2025 12:37 PM [facility] LAB eGFR 94 >=60 mL/min/1. 73m2 LAB CHEMISTRY METHOD 07/16/2025 12:37 PM [facility] LAB Comment:Calculation based on the Chronic Kidney Disease Epidemiology Collaboration (CKD-EPI) equation refit without adjustment for race. BUN/Creatinine Ratio 11.6 LAB CHEMISTRY METHOD 07/16/2025 12:37 PM [facility] LAB Calcium 9.5 8.5 - 10.5 mg/dL LAB CHEMISTRY METHOD 07/16/2025 12:37 PM [facility] LAB Blood Venous blood specimen / Unknown Venipuncture / Unknown 07/16/2025 8:28 AM EDT 07/16/2025 11:41 AM EDT Gui Watters MD LAB BLOOD ORDERABLES Final Result [facility] LAB [address] [place] [address], documented in this encounter Visit Diagnoses Diagnosis Anemia, unspecified documented in this encounter Care Teams Silk Screen Printer Relationship Specialty Start Date End Date Gui Watters MD [address] [place] [address] PCP - General Internal Medicine 07/02/25 documented as of this encounter
--- OUTSIDE RECORDS SUMMARY | 2025-09-09 21:13 | XMS_ITS | Encounter Summary ---
Author Organization [employer] [facility] Address [address] [place] [address] Care Team Providers Care Relay Repairer Name Role Phone Gui Watters MD Primary Care Provider +1- [phone] Encounter Details Date Type Department Care Team (Late st Contact Info) Description 07/09/2025 Lab Requisition [facility] Lab [address] [place] [address] Gui Watters MD [address] [place] [id number] Anemia, unspecified Social History Tobacco Use Types [...] unspecified documented in this encounter Care Teams Relay Repairer Relationship Specialty Start Date End Date Gui Watters MD [address] [place] [phone] PCP - General Internal Medicine 07/02/25 documented as of this encounter
--- OUTSIDE RECORDS SUMMARY | 2025-09-09 21:13 | XMS_ITS | Encounter Summary ---
Author Organization [employer] [facility] Address [address] [place] [address] Care Team Providers Care Security Delivery Specialist Name Role Phone Gui Watters MD Primary Care Provider +1- [phone] Encounter Details Date Type Department Care Team (Late st Contact Info) Description 07/08/2025 Lab Requisition [facility] - [facility] Lab [address] [facility] [place] [address] Gui Watters MD [address] [place] [phone] Anemia, unspecified Social History Tobacco Use Types [...] LAB CHEMISTRY METHOD 07/09/2025 1:57 PM EDT [facility] LAB Potassium 4.7 3.5 - 5.5 mmol/L LAB CHEMISTRY METHOD 07/09/2025 1:57 PM EDT [facility] LAB Chloride 107 96 - 110 mmol/L LAB CHEMISTRY METHOD 07/09/2025 1:57 PM T [facility] LAB CO2 16(L) 21 - 32 mmol/L LAB CHEMISTRY METHOD 07/09/2025 1:57 PM [facility] LAB Anion Gap 15(H) 3 - 11 LAB CHEMISTRY METHOD 07/09/2025 1:57 PM [facility] LAB Glucose 111(H) 70 - 100 mg/dL LAB CHEMISTRY METHOD 07/09/2025 1:57 PM [facility] LAB BUN 13 5 - 25 mg/dL LAB CHEMISTRY METHOD 07/09/2025 1:57 PM [facility] LAB Creatinine 0.78 0.70 - 1.30 mg/dL LAB CHEMISTRY METHOD 07/09/2025 1:57 PM [facility] LAB eGFR 97 >=60 mL/min/1. 73m2 LAB CHEMISTRY METHOD 07/09/2025 1:57 PM [facility] LAB Comment:Calculation based on the Chronic Kidney Disease Epidemiology Collaboration (CKD-EPI) equation refit without adjustment for race. BUN/Creatinine Ratio 16.7 LAB CHEMISTRY METHOD 07/09/2025 1:57 PM [facility] LAB Calcium 8.7 8.5 - 10.5 mg/dL LAB CHEMISTRY METHOD 07/09/2025 1:57 PM [facility] LAB AST (SGOT) 45(H) 10 - 42 unit/L LAB CHEMISTRY METHOD 07/09/2025 1:57 PM [facility] LAB ALT (SGPT) 53 10 - 60 unit/L LAB CHEMISTRY METHOD 07/09/2025 1:57 PM [facility] LAB Alkaline Phosphatase 120 42 - 121 unit/L LAB CHEMISTRY METHOD 07/09/2025 1:57 PM [facility] LAB Total Protein 7.2 6.0 - 8.0 g/dL LAB CHEMISTRY METHOD 07/09/2025 1:57 PM [facility] LAB Albumin 2.8(L) 3.2 - 5.0 g/dL LAB CHEMISTRY METHOD 07/09/2025 1:57 PM EDT [facility] LAB Total Bilirubin 0.3 0.0 - 1.4 mg/dL LAB CHEMISTRY METHOD 07/09/2025 1:57 PM [facility] LAB Blood Venous blood specimen / Unknown Venipuncture / Unknown 07/09/2025 9:12 AM EDT 07/09/2025 12:00 PM EDT Gui Watters MD LAB BLOOD ORDERABLES Final Result [facility] LAB [address] [place] [address], * (ABNORMAL) Complete blood count (07/09/2025 9:12 AM EDT) WBC 6.7 4.8 - 10.8 K/mcL LAB HEMETOLOGY METHOD 07/09/2025 12:42 PM [facility] LAB RBC 3.20(L) 4.50 - 5.50 M/mcL LAB HEMETOLOGY METHOD 07/09/2025 12:42 PM [facility] LAB Hemoglobin 10.5(L) 13.5 - 17.5 g/dL LAB HEMETOLOGY METHOD 07/09/2025 12:42 PM [facility] LAB Hematocrit 33.4(L) 42.0 - 54.0 % LAB HEMETOLOGY METHOD 07/09/2025 12:42 PM [facility] LAB MCV 103.7(H) 79.0 - 98.0 FL LAB HEMETOLOGY METHOD 07/09/2025 12:42 PM [facility] LAB MCH 32.6(H) 27.0 - 32.0 pcg LAB HEMETOLOGY METHOD 07/09/2025 12:42 PM [facility] LAB MCHC 31.4(L) 32.0 - 37.0 g/dL LAB HEMETOLOGY METHOD 07/09/2025 12:42 PM EDT [facility] LAB RDW 16.7(H) 11.0 - 15.0 % LAB HEMETOLOGY METHOD 07/09/2025 12:42 PM EDT [facility] LAB Platelets 314 130 - 400 K/mcL LAB HEMETOLOGY METHOD 07/09/2025 12:42 PM EDT [facility] LAB MPV 10.5 7.0 - 11.0 FL LAB HEMETOLOGY METHOD 07/09/2025 12:42 PM EDT [facility] LAB NRBC 0.0 <1.0 % LAB HEMETOLOGY METHOD 07/09/2025 12:42 PM EDT [facility] LAB NRBC Absolute 0.00 <0.10 K/mcL LAB HEMETOLOGY METHOD 07/09/2025 12:42 PM EDT [facility] LAB Blood Venous blood specimen / Unknown Venipuncture / Unknown 07/09/2025 9:12 AM EDT 07/09/2025 12:00 PM EDT us Gui Watters MD LAB BLOOD ORDERABLES Final Result [facility] [address] [place] [address], documented in this encounter Visit Diagnoses Diagnosis Anemia, unspecified documented in this encounter Care Teams Security Delivery Specialist Relationship Specialty Start Date End Date Gui Watters MD [address] [place] [phone] PCP - General Internal Medicine 07/02/25 documented as of this encounter
--- OUTSIDE RECORDS SUMMARY | 2025-09-09 21:13 | XMS_ITS | Encounter Summary ---
Author Organization [employer] [facility] Address [address] [place] [address] Care Team Providers Care Pellet Machine Operator Name Role Phone Gui Watters MD Primary Care Provider +1- [phone] Encounter Details Date Type Department Care Team (Late st Contact Info) Description 07/22/2025 Lab Requisition [facility] [address] [facility] [address] [place] [address] Gui Watters MD [address] [place] [id number] Anemia, unspecified Social History Tobacco Use Types [...] LAB HEMETOLOGY METHOD 07/23/2025 11:54 AM EDT [facility] RBC 3.00(L) 4.50 - 5.50 M/mcL LAB HEMETOLOGY METHOD 07/23/2025 11:54 AM EDT [facility] Hemoglobin 9.5(L) 13.5 - 17.5 g/dL LAB HEMETOLOGY METHOD 07/23/2025 11:54 AM EDT [facility] Hematocrit 30.9(L) 42.0 - 54.0 % LAB HEMETOLOGY METHOD 07/23/2025 11:54 AM EDT [facility] MCV 101.6(H) 79.0 - 98.0 FL LAB HEMETOLOGY METHOD 07/23/2025 11:54 AM EDT [facility] MCH 31.3 27.0 - 32.0 pcg LAB HEMETOLOGY METHOD 07/23/2025 11:54 AM EDT [facility] MCHC 30.7(L) 32.0 - 37.0 g/dL LAB HEMETOLOGY METHOD 07/23/2025 11:54 AM [facility] RDW 18.0(H) 11.0 - 15.0 % LAB HEMETOLOGY METHOD 07/23/2025 11:54 AM EDT [facility] Platelets 333 130 - 400 K/mcL LAB HEMETOLOGY METHOD 07/23/2025 11:54 AM T [facility] MPV 9.8 7.0 - 11.0 FL LAB HEMETOLOGY METHOD 07/23/2025 11:54 AM [facility] NRBC 0.0 <1.0 % LAB HEMETOLOGY METHOD 07/23/2025 11:54 AM EDT [facility] NRBC Absolute 0.00 <0.10 K/mcL LAB HEMETOLOGY METHOD 07/23/2025 11:54 AM [facility] Blood Venous blood specimen / Unknown Venipuncture / Unknown 07/23/2025 10:09 AM EDT 07/23/2025 11:39 AM EDT us Gui Watters MD LAB BLOOD ORDERABLES Final Result [facility] [address] [place] [address], [place] [phone] * (ABNORMAL) Basic metabolic panel (07/23/2025 10:09 AM EDT) Sodium 140 133 - 145 mmol/L LAB CHEMISTRY METHOD 07/23/2025 1:36 PM [facility] Potassium 3.8 3.5 - 5.5 mmol/L LAB CHEMISTRY METHOD 07/23/2025 1:36 PM [facility] Chloride 107 96 - 110 mmol/L LAB CHEMISTRY METHOD 07/23/2025 1:36 PM [facility] CO2 26 21 - 32 mmol/L LAB CHEMISTRY METHOD 07/23/2025 1:36 PM [facility] Anion Gap 7 3 - 11 LAB CHEMISTRY METHOD 07/23/2025 1:36 PM [facility] Glucose 103(H) 70 - 100 mg/dL LAB CHEMISTRY METHOD 07/23/2025 1:36 PM [facility] BUN 16 5 - 25 mg/dL LAB CHEMISTRY METHOD 07/23/2025 1:36 PM [facility] Creatinine 0.79 0.70 - 1.30 mg/dL LAB CHEMISTRY METHOD 07/23/2025 1:36 PM [facility] eGFR 96 >=60 mL/min/1. 73m2 LAB CHEMISTRY METHOD 07/23/2025 1:36 PM [facility] Comment:Calculation based on the Chronic Kidney Disease Epidemiology Collaboration (CKD-EPI) equation refit without adjustment for race. BUN/Creatinine Ratio 20.3 LAB CHEMISTRY METHOD 07/23/2025 1:36 PM [facility] Calcium 9.0 8.5 - 10.5 mg/dL LAB CHEMISTRY METHOD 07/23/2025 1:36 PM [facility] Blood Venous blood specimen / Unknown Venipuncture / Unknown 07/23/2025 10:09 AM EDT 07/23/2025 11:39 AM EDT Gui Watters MD LAB BLOOD ORDERABLES Final Result [facility] [address] [place] [address], documented in this encounter Visit Diagnoses Diagnosis Anemia, unspecified documented in this encounter Care Teams Pellet Machine Operator Relationship Specialty Start Date End Date Gui Watters MD [address] [place] [address] PCP - General Internal Medicine 07/02/25 documented as of this encounter
--- OUTSIDE RECORDS SUMMARY | 2025-09-09 21:13 | XMS_ITS | Encounter Summary ---
Author Organization [facility] [facility] Address [address] [place] [address] Care Team Providers Care Call Center Nurse Name Role Phone Gui Watters MD Primary Care Provider +1- [phone] Encounter Details Date Type Department Care Team (Late st Contact Info) Description 07/29/[address] [facility] [address] [facility] [place] [address] Gui Watters MD [address] [place] [id number] Anemia, unspecified Social History Tobacco Use Types [...] unspecified documented in this encounter Care Teams Call Center Nurse Relationship Specialty Start Date End Date Gui Watters MD [address] [place] [address] PCP - General Internal Medicine 07/02/25 documented as of this encounter
--- OUTSIDE RECORDS SUMMARY | 2025-09-09 21:13 | XMS_ITS | Encounter Summary ---
Author Organization [employer] Address [address] [place] [address] Care Team Providers Care Bean Sprout Grower Name Role Phone Gui Watters MD Primary Care Provider +1- [phone] Encounter Details Date Type Department Care Team (Late st Contact Info) Description 07/02/2025 Lab Requisition [facility] Lab [address] [facility] [address] Gui Watters MD [address] [place] [address] Anemia, unspecified Social History Tobacco Use Types [...] LAB CHEMISTRY METHOD 07/02/2025 10:28 AM EDT [facility] Blood Venous blood specimen / Unknown Venipuncture / Unknown 07/02/2025 7:35 AM EDT 07/02/2025 9:15 AM EDT us Gui Watters MD LAB BLOOD ORDERABLES Final Result Performing Organization Address [facility]/ZIP Co de Phone Number [facility] [address] [place] [address], [place] [phone] * Thyroid stimulating hormone with reflex to free t4 and free t3 (07/02/2025 7:35 AM EDT) Pathologist [facility] TSH 3.41 0.40 - 4.00 mcIU/mL LAB CHEMISTRY METHOD 07/02/2025 11:25 AM EDT [facility] Blood Venous blood specimen / Unknown Venipuncture / Unknown 07/02/2025 7:35 AM EDT 07/02/2025 9:15 AM EDT us Gui Watters MD LAB BLOOD ORDERABLES Final Result Performing Organization Address [facility]/ZIP Co de Phone Number [facility] [address] [place] [address], [place] [phone] * (ABNORMAL) Comprehensive metabolic panel (07/02/2025 7:35 AM EDT) Sodium 135 133 - 145 mmol/L LAB CHEMISTRY METHOD 07/02/2025 10:31 AM EDT [facility] Potassium 3.7 3.5 - 5.5 mmol/L LAB CHEMISTRY METHOD 07/02/2025 10:31 AM EDT [facility] Chloride 105 96 - 110 mmol/L LAB CHEMISTRY METHOD 07/02/2025 10:31 AM EDT [facility] CO2 22 21 - 32 mmol/L LAB CHEMISTRY METHOD 07/02/2025 10:31 AM EDT [facility] Anion Gap 8 3 - 11 LAB CHEMISTRY METHOD 07/02/2025 10:31 AM [facility] Glucose 105(H) 70 - 100 mg/dL LAB CHEMISTRY METHOD 07/02/2025 10:31 AM [facility] BUN 10 5 - 25 mg/dL LAB CHEMISTRY METHOD 07/02/2025 10:31 AM [facility] Creatinine 0.71 0.70 - 1.30 mg/dL LAB CHEMISTRY METHOD 07/02/2025 10:31 AM [facility] eGFR 99 >=60 mL/min/1. 73m2 LAB CHEMISTRY METHOD 07/02/2025 10:31 AM [facility] Comment:Calculation based on the Chronic Kidney Disease Epidemiology Collaboration (CKD-EPI) equation refit without adjustment for race. BUN/Creatinine Ratio 14.1 LAB CHEMISTRY METHOD 07/02/2025 10:31 AM [facility] Calcium 8.8 8.5 - 10.5 mg/dL LAB CHEMISTRY METHOD 07/02/2025 10:31 AM [facility] AST (SGOT) 39 10 - 42 unit/L LAB CHEMISTRY METHOD 07/02/2025 10:31 AM [facility] ALT (SGPT) 39 10 - 60 unit/L LAB CHEMISTRY METHOD 07/02/2025 10:31 AM [facility] Alkaline Phosphatase 109 42 - 121 unit/L LAB CHEMISTRY METHOD 07/02/2025 10:31 AM [facility] Total Protein 6.6 6.0 - 8.0 g/dL LAB CHEMISTRY METHOD 07/02/2025 10:31 AM [facility] Albumin 2.8(L) 3.2 - 5.0 g/dL LAB CHEMISTRY METHOD 07/02/2025 10:31 AM [facility] Total Bilirubin 0.6 0.0 - 1.4 mg/dL LAB CHEMISTRY METHOD 07/02/2025 10:31 AM [facility] Blood Venous blood specimen / Unknown Venipuncture / Unknown 07/02/2025 7:35 AM EDT 07/02/2025 9:15 AM EDT Gui Watters MD LAB BLOOD ORDERABLES Final Result [facility] [address] [place] [address], * (ABNORMAL) Complete blood count (07/02/2025 7:35 AM EDT) WBC 9.1 4.8 - 10.8 K/mcL LAB HEMETOLOGY METHOD 07/02/2025 9:43 AM EDT [facility] RBC 2.80(L) 4.50 - 5.50 M/mcL LAB HEMETOLOGY METHOD 07/02/2025 9:43 AM EDT [facility] Hemoglobin 9.2(L) 13.5 - 17.5 g/dL LAB HEMETOLOGY METHOD 07/02/2025 9:43 AM [facility] Hematocrit 28.2(L) 42.0 - 54.0 % LAB HEMETOLOGY METHOD 07/02/2025 9:43 AM [facility] MCV 101.8(H) 79.0 - 98.0 FL LAB HEMETOLOGY METHOD 07/02/2025 9:43 AM EDT [facility] MCH 33.2(H) 27.0 - 32.0 pcg LAB HEMETOLOGY METHOD 07/02/2025 9:43 AM EDT [facility] MCHC 32.6 32.0 - 37.0 g/dL LAB HEMETOLOGY METHOD 07/02/2025 9:43 AM [facility] RDW 14.9 11.0 - 15.0 % LAB HEMETOLOGY METHOD 07/02/2025 9:43 AM EDT [facility] Platelets 263 130 - 400 K/mcL LAB HEMETOLOGY METHOD 07/02/2025 9:43 AM EDT [facility] MPV 10.9 7.0 - 11.0 FL LAB HEMETOLOGY METHOD 07/02/2025 9:43 AM EDT [facility] NRBC 0.0 <1.0 % LAB HEMETOLOGY METHOD 07/02/2025 9:43 AM EDT [facility] NRBC Absolute 0.00 <0.10 K/mcL LAB HEMETOLOGY METHOD 07/02/2025 9:43 AM EDT [facility] Blood Venous blood specimen / Unknown Venipuncture / Unknown 07/02/2025 7:35 AM EDT 07/02/2025 9:15 AM EDT Gui Watters MD LAB BLOOD ORDERABLES Final Result [facility] [address] [place] [address], documented in this encounter Visit Diagnoses Diagnosis Anemia, unspecified documented in this encounter Care Teams Bean Sprout Grower Relationship Specialty Start Date End Date Gui Watters MD [address] [place] [phone] PCP - General Internal Medicine 07/02/25 documented as of this encounter
--- OUTSIDE RECORDS SUMMARY | 2025-09-09 21:14 | XMS_ITS | Clinical Summary ---
Author Organization [address] [facility] Address [address] [place] [address] Phone Care Team Providers Care Electrical Appliance Servicer Name Role Phone Gui Watters MD Primary Care Provider +1- [phone] Encounters Date Type Department Care Team Description 07/29/2025 Lab Requisition [facility] Lab [address] [place] [address] Gui Watters MD Anemia, unspecified 07/22/2025 Lab Requisition [facility] Lab [address] [place] [address] Gui Watters MD Anemia, unspecified 07/16/2025 Lab Requisition [facility] Lab [address] [place] [address] Gui Watters MD Anemia, unspecified 07/09/2025 Lab Requisition [facility] Lab [address] [place] [address] Gui Watters MD Anemia, unspecified 07/08/2025 Lab Requisition [facility] Lab [address] [place] [address] Gui Watters MD Anemia, unspecified 07/02/2025 Lab Requisition [facility] Lab [address] [place] [address] Gui Watters MD Anemia, unspecified from Last [...] K/mcL LAB HEMETOLOGY METHOD 07/23/2025 11:54 AM [facility] RBC 3.00(L) 4.50 - 5.50 M/mcL LAB HEMETOLOGY METHOD 07/23/2025 11:54 AM [facility] Hemoglobin 9.5(L) 13.5 - 17.5 g/dL LAB HEMETOLOGY METHOD 07/23/2025 11:54 AM [facility] Hematocrit 30.9(L) 42.0 - 54.0 % LAB HEMETOLOGY METHOD 07/23/2025 11:54 AM [facility] MCV 101.6(H) 79.0 - 98.0 FL LAB HEMETOLOGY METHOD 07/23/2025 11:54 AM [facility] MCH 31.3 27.0 - 32.0 pcg LAB HEMETOLOGY METHOD 07/23/2025 11:54 AM EDT [facility] MCHC 30.7(L) 32.0 - 37.0 g/dL LAB HEMETOLOGY METHOD 07/23/2025 11:54 AM EDT [facility] RDW 18.0(H) 11.0 - 15.0 % LAB HEMETOLOGY METHOD 07/23/2025 11:54 AM EDT [facility] Platelets 333 130 - 400 K/mcL LAB HEMETOLOGY METHOD 07/23/2025 11:54 AM EDT [facility] MPV 9.8 7.0 - 11.0 FL LAB HEMETOLOGY METHOD 07/23/2025 11:54 AM EDT [facility] NRBC 0.0 <1.0 % LAB HEMETOLOGY METHOD 07/23/2025 11:54 AM EDT [facility] NRBC Absolute 0.00 <0.10 K/mcL LAB HEMETOLOGY METHOD 07/23/2025 11:54 AM T [facility] Blood Venous blood specimen / Unknown Venipuncture / Unknown 07/23/2025 10:09 AM EDT 07/23/2025 11:39 AM EDT Gui Watters MD LAB BLOOD ORDERABLES Final Result [facility] [address] [place] [address], * (ABNORMAL) Basic metabolic panel (07/23/2025 10:09 AM EDT) Only the most recent of2 resultswithin the time period is included. Sodium 140 133 - 145 mmol/L LAB CHEMISTRY METHOD 07/23/2025 1:36 PM EDT [facility] Potassium 3.8 3.5 - 5.5 mmol/L LAB CHEMISTRY METHOD 07/23/2025 1:36 PM [facility] Chloride 107 96 - 110 mmol/L LAB CHEMISTRY METHOD 07/23/2025 1:36 PM [facility] CO2 26 21 - 32 mmol/L LAB CHEMISTRY METHOD 07/23/2025 1:36 PM [facility] Anion Gap 7 3 - 11 LAB CHEMISTRY METHOD 07/23/2025 1:36 PM [facility] Glucose 103(H) 70 - 100 mg/dL LAB CHEMISTRY METHOD 07/23/2025 1:36 PM [facility] BUN 16 5 - 25 mg/dL LAB CHEMISTRY METHOD 07/23/2025 1:36 PM [facility] Creatinine 0.79 0.70 - 1.30 mg/dL LAB CHEMISTRY METHOD 07/23/2025 1:36 PM [facility] eGFR 96 >=60 mL/min/1. 73m2 LAB CHEMISTRY METHOD 07/23/2025 1:36 PM [facility] Comment:Calculation based on the Chronic Kidney Disease Epidemiology Collaboration (CKD-EPI) equation refit without adjustment for race. BUN/Creatinine Ratio 20.3 LAB CHEMISTRY METHOD 07/23/2025 1:36 PM [facility] Calcium 9.0 8.5 - 10.5 mg/dL LAB CHEMISTRY METHOD 07/23/2025 1:36 PM [facility] Blood Venous blood specimen / Unknown Venipuncture / Unknown 07/23/2025 10:09 AM EDT 07/23/2025 11:39 AM EDT us Gui Watters MD LAB BLOOD ORDERABLES Final Result [facility] [address] [place] [address], * (ABNORMAL) Comprehensive metabolic panel (07/09/2025 9:12 AM EDT) Only the most recent of2 resultswithin the time period is included. Sodium 138 133 - 145 mmol/L LAB CHEMISTRY METHOD 07/09/2025 1:57 PM [facility] Potassium 4.7 3.5 - 5.5 mmol/L LAB CHEMISTRY METHOD 07/09/2025 1:57 PM [facility] Chloride 107 96 - 110 mmol/L LAB CHEMISTRY METHOD 07/09/2025 1:57 PM [facility] CO2 16(L) 21 - 32 mmol/L LAB CHEMISTRY METHOD 07/09/2025 1:57 PM [facility] Anion Gap 15(H) 3 - 11 LAB CHEMISTRY METHOD 07/09/2025 1:57 PM [facility] Glucose 111(H) 70 - 100 mg/dL LAB CHEMISTRY METHOD 07/09/2025 1:57 PM [facility] BUN 13 5 - 25 mg/dL LAB CHEMISTRY METHOD 07/09/2025 1:57 PM [facility] Creatinine 0.78 0.70 - 1.30 mg/dL LAB CHEMISTRY METHOD 07/09/2025 1:57 PM [facility] eGFR 97 >=60 mL/min/1. 73m2 LAB CHEMISTRY METHOD 07/09/2025 1:57 PM [facility] Comment:Calculation based on the Chronic Kidney Disease Epidemiology Collaboration (CKD-EPI) equation refit without adjustment for race. BUN/Creatinine Ratio 16.7 LAB CHEMISTRY METHOD 07/09/2025 1:57 PM [facility] Calcium 8.7 8.5 - 10.5 mg/dL LAB CHEMISTRY METHOD 07/09/2025 1:57 PM [facility] AST (SGOT) 45(H) 10 - 42 unit/L LAB CHEMISTRY METHOD 07/09/2025 1:57 PM EDT [facility] ALT (SGPT) 53 10 - 60 unit/L LAB CHEMISTRY METHOD 07/09/2025 1:57 PM EDT [facility] Alkaline Phosphatase 120 42 - 121 unit/L LAB CHEMISTRY METHOD 07/09/2025 1:57 PM EDT [facility] Total Protein 7.2 6.0 - 8.0 g/dL LAB CHEMISTRY METHOD 07/09/2025 1:57 PM EDT [facility] Albumin 2.8(L) 3.2 - 5.0 g/dL LAB CHEMISTRY METHOD 07/09/2025 1:57 PM EDT [facility] Total Bilirubin 0.3 0.0 - 1.4 mg/dL LAB CHEMISTRY METHOD 07/09/2025 1:57 PM EDT [facility] Blood Venous blood specimen / Unknown Venipuncture / Unknown 07/09/2025 9:12 AM EDT 07/09/2025 12:00 PM EDT us Gui Watters MD LAB BLOOD ORDERABLES Final Result Performing Organization Address City/[facility]/ZIP Co de Phone Number [facility] [address] [place] [address], * Thyroid stimulating hormone with reflex to free t4 and free t3 (07/02/2025 7:35 AM EDT) TSH 3.41 0.40 - 4.00 mcIU/mL LAB CHEMISTRY METHOD 07/02/2025 11:25 AM EDT [facility] Blood Venous blood specimen / Unknown Venipuncture / Unknown 07/02/2025 7:35 AM EDT 07/02/2025 9:15 AM EDT us Gui Watters MD LAB BLOOD ORDERABLES Final Result [facility] [address] [place] [address], [place] [phone] * Uric acid (07/02/2025 7:35 AM EDT) Uric Acid 5.4 3.7 - 9.2 mg/dL LAB CHEMISTRY METHOD 07/02/2025 10:28 AM EDT [facility] Blood Venous blood specimen / Unknown Venipuncture / Unknown 07/02/2025 7:35 AM EDT 07/02/2025 9:15 AM EDT us Gui Watters MD LAB BLOOD ORDERABLES Final Result [facility] ([facility] [address] [place] [address], [place] [phone] from Last 3 Months Insurance [employer] Care Teams Electrical Appliance Servicer Relationship Specialty Start Date End Date Gui Watters MD [address] [place] [address] PCP - General Internal Medicine 07/02/25
--- OUTSIDE RECORDS SUMMARY | 2025-10-11 19:00 | XMS_ITS | Clinical Summary ---
Author Organization Unknown Care Team Providers Care Reliability Technicians Name Role Phone FAIZAN WILHELM MD, SHANTHI Unavailable Unavailab kim JOSEPH RN, RENE Unavailable Unavailable Payers Payer Name Policy Type Policy Number Effective Date Expira tion Date [employer] MED[employer]ARE ADVANTAGE FFS [id number] MEDICARE - [facility]/[place] - PD [id number] Problems Condition Name Condition Details Condition Category Status Onset Date Resolution Date Last Treatment Date Treating Clinician Comments ALCOHOL USE, UNSPECIFIED, UNCOMPLICATE D Active 06-30 00:00: 00 UNSPECIFIED ATRIAL FLUTTER Active 2024-10 00:00: 00 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 Ordering Clinician Indication Dosage Frequency Signature (SIG) Comments Components allopurinol 300 mg tablet 2024-10 00:00: 00 Yes [id number] 300 mg EVERY AM 300 mg EVERY AM (route: oral) Med Classific ation: Gout and Hyperuric emia Therapy cyanocobala min (vit B-12) 1,000 mcg tablet 2024-10 00:00: 00 Yes [id number] 1 tablet EVERY AM 1 tablet EVERY AM (route: oral) Med Classific ation: Electroly te Balance-N utritiona l Products ergocalcife rol (vitamin D2) 1,250 mcg (50,000 unit) capsule 2024-10 00:00: 00 Yes [id number] 1 capsule WEEKLY 1 capsule WEEKLY (route: oral) Med Classific ation: Electroly te Balance-N utritiona l Products ferrous sulfate 325 mg (65 mg iron) tablet 2024-10 00:00: 00 Yes [id number] 1 tablet EVERY AM 1 tablet EVERY AM (route: oral) Med Classific ation: Electroly te Balance-N utritiona l Products fludrocorti sone 0.1 mg tablet 2024-10 00:00: 00 Yes [id number] 1 tablet EVERY AM 1 tablet EVERY AM (route: oral) Med Classific ation: Endocrine gabapentin 100 mg capsule 2024-10 00:00: 00 Yes [id number] 1 capsule 3 TIMES DAILY 1 capsule 3 TIMES DAILY (route: oral) Med Classific ation: Central Nervous System Agents lidocaine 5 % topical cream 2024-10 00:00: 00 Yes [id number] Per instruc tions NEEDED Per instructio ns NEEDED (route: topical) Med Classific ation: Dermatolo gical metoprolol tartrate 25 mg tablet 2024-10 00:00: 00 Yes [id number] 1 tablet 2 TIMES DAILY 1 tablet 2 TIMES DAILY (route: oral) Med Classific ation: Cardiovas cular Therapy Agents prednisone 20 mg tablet 2024-10 00:00: 00 08-24 23:59 :00 No [id number] 40 mg DAILY 40 mg DAILY (route: oral) Med Classific ation: Endocrine Vital Signs Vital Name Observation Time Observation Value Commen ts Temperature 2025-09-04 15:51:00.000 96.7 [degF] Temperature 2025-09-01 14:08:00.000 97.2 [degF] Temperature 2025-08-24 16:23:00.000 98.6 [degF] Temperature 2025-08-21 15:32:00.000 98.5 [degF] Temperature 2025-08-18 14:15:00.000 96.9 [degF] Temperature 2025-08-14 15:53:00.000 97.9 [degF] BMI (%) 2025-08-14 15:53:00.000 33 kg/m2 Height 2025-08-14 15:53:00.000 68 [in_us] Pulse 2025 19:06:00.000 75 /min Pulse 2025-09-04 15:54:00.000 91 /min Pulse 2025-09-01 14:08:00.000 88 /min Pulse 2025-08-24 16:23:00.000 83 /min Pulse 2025-08-21 15:32:00.000 86 /min Pulse 2025-08-18 14:15:00.000 98 /min Pulse 2025-08-14 15:53:00.000 84 /min O2 Saturation (%) 2025-08-18 14:15:00.000 98 % Respirations 2025 19:06:00.000 18 /min Respirations 2025-09-04 15:51:00.000 18 /min Respirations 2025-09-01 14:08:00.000 16 /min Respirations 2025-08-24 16:23:00.000 18 /min Respirations 2025-08-21 15:32:00.000 18 /min Respirations 2025-08-18 14:15:00.000 18 /min Respirations 2025-08-14 15:53:00.000 18 /min Weight (lbs) 2025-08-14 15:53:00.000 222 [lb_av] Systolic Blood Pressure 2025 19:06:00.000 136 mm [Hg] Systolic Blood Pressure 2025-09-04 15:51:00.000 144 mm [Hg] Systolic Blood Pressure 2025-09-01 14:08:00.000 148 mm [Hg] Systolic Blood Pressure 2025-08-24 16:23:00.000 139 mm [Hg] Systolic Blood Pressure 2025-08-21 15:32:00.000 141 mm [Hg] Systolic Blood Pressure 2025-08-18 14:15:00.000 138 mm [Hg] Systolic Blood Pressure 2025-08-14 15:53:00.000 154 mm [Hg] Diastolic Blood Pressure 2025 19:06:00.000 75 mm [Hg] Diastolic Blood Pressure 2025-09-04 15:51:00.000 88 mm [Hg] Diastolic Blood Pressure 2025-09-01 14:08:00.000 88 mm [Hg] Diastolic Blood Pressure 2025-08-24 16:23:00.000 81 mm [Hg] Diastolic Blood Pressure 2025-08-21 15:32:00.000 86 mm [Hg] Diastolic Blood Pressure 2025-08-18 14:15:00.000 84 mm [Hg] Diastolic Blood Pressure 2025-08-14 15:53:00.000 88 mm [Hg] Plan of Treatment Planned Activity Planned Date Details Comments Future Scheduled Test SKILLED NU RSE TO EVALUATE PATIENT, IDENTIFY PRIMARY AND CO-MORBID CONDITIONS CODED PER CODING GUIDELINES, AND DEVELOP PATIENT SPECIFIC PLAN OF CARE THAT INCLUDES PATIENT GOAL FOR HOME HEALTH. PLAN OF CARE TO INCLUDE 3 PRN VISIT(S) FOR OASIS DATA COLLECTION/COMPREHENSIVE ASSESSMENT AT TIMEPOINTS PER FEDERAL REGULATIONS. THIS INCLUDES VISITS FOR GRIS, RECERT, SCIC, AND/OR DC. [code = SKILLED NURSE TO EVALUATE PATIENT, IDENTIFY PRIMARY AND CO-MORBID CONDITIONS CODED PER CODING GUIDELINES, AND DEVELOP PATIENT SPECIFIC PLAN OF CARE THAT INCLUDES PATIENT GOAL FOR HOME HEALTH. PLAN OF CARE TO INCLUDE 3 PRN VISIT(S) FOR OASIS DATA COLLECTION/COMPREHENSIVE ASSESSMENT AT TIMEPOINTS PER FEDERAL REGULATIONS. THIS INCLUDES VISITS FOR GRIS, RECERT, SCIC, AND/OR DC.] Future Scheduled Test SKILLED NU RSE TO PRE-POUR MEDICATION PER MEDICATION LIST WEEKLY [code = SKILLED NURSE TO PRE-POUR MEDICATION PER MEDICATION LIST WEEKLY] Future Scheduled Test PATIENT MA Y HAVE ONE SET OF EMERGENCY MEDICATION NOT TO BE PRE-POURED ANY SOONER THAN 24 HOURS BEFORE SEVERE INCLEMENT WEATHER OR EMERGENT EVENT AND FOLLOWING SKILLED NURSE EVALUATION OF PATIENT SAFETY. [code = PATIENT MAY HAVE ONE SET OF EMERGENCY MEDICATION NOT TO BE PRE-POURED ANY SOONER THAN 24 HOURS BEFORE SEVERE INCLEMENT WEATHER OR EMERGENT EVENT AND FOLLOWING SKILLED NURSE EVALUATION OF PATIENT SAFETY.] Future Scheduled Test SKILLED NU RSE TO O/A OF PATIENTS MENTAL/BEHAVIORAL STATUS, ASSESS VITAL SIGNS EVERY VISIT ALLOW 2 PRNS FOR MEDICATION MANAGEMENT. [code = SKILLED NURSE TO O/A OF PATIENTS MENTAL/BEHAVIORAL STATUS, ASSESS VITAL SIGNS EVERY VISIT ALLOW 2 PRNS FOR MEDICATION MANAGEMENT.] Future Scheduled Test SKILLED NU RSE FOR O/A OF GENERAL HEALTH STATUS OF PAIN, CARDIAC, RESPIRATORY, GASTROINTESTINAL, GENITOURINARY, SKIN, NEUROLOGIC, ENDOCRINE SYSTEMS TO IDENTIFY CHANGES ASSOCIATED WITH EXACERBATION FOR EARLY INTERVENTION OF COMPLICATIONS WEEKLY. [code = SKILLED NURSE FOR O/A OF GENERAL HEALTH STATUS OF PAIN, CARDIAC, RESPIRATORY, GASTROINTESTINAL, GENITOURINARY, SKIN, NEUROLOGIC, ENDOCRINE SYSTEMS TO IDENTIFY CHANGES ASSOCIATED WITH EXACERBATION FOR EARLY INTERVENTION OF COMPLICATIONS WEEKLY.] Future Scheduled Test SKILLED NU RSE FOR O/A AND SKILLED TEACHING RELATED TO MANAGEMENT OF DEPRESSIVE SYMPTOMS AND/OR DEPRESSION. SN TO REPORT SIGNIFICANT CHANGE IN DEPRESSIVE SYMPTOMS TO CLINICAL PROVIDER FOR EARLY INTERVENTION. [code = SKILLED NURSE FOR O/A AND SKILLED TEACHING RELATED TO MANAGEMENT OF DEPRESSIVE SYMPTOMS AND/OR DEPRESSION. SN TO REPORT SIGNIFICANT CHANGE IN DEPRESSIVE SYMPTOMS TO CLINICAL PROVIDER FOR EARLY INTERVENTION.] Future Scheduled Test SKILLED NU RSE TO PROVIDE TEACHING ON SIGNS AND SYMPTOMS AND MANAGEMENT OF HYPERTENSION. [code = SKILLED NURSE TO PROVIDE TEACHING ON SIGNS AND SYMPTOMS AND MANAGEMENT OF HYPERTENSION.] Future Scheduled Test SKILLED NU RSE FOR O/A AND TEACHING ON SIGNS AND SYMPTOMS AND MANAGEMENT OF HYPOTENSION [code = SKILLED NURSE FOR O/A AND TEACHING ON SIGNS AND SYMPTOMS AND MANAGEMENT OF HYPOTENSION] Future Scheduled Test SKILLED NU RSE TO PERFORM HOME SAFETY AND FALL ASSESSMENT AND PROVIDE INSTRUCTION TO IMPLEMENT HOME SAFETY AND FALL PREVENTION STRATEGIES. [code = SKILLED NURSE TO PERFORM HOME SAFETY AND FALL ASSESSMENT AND PROVIDE INSTRUCTION TO IMPLEMENT HOME SAFETY AND FALL PREVENTION STRATEGIES.] Future Scheduled Test SKILLED NU RSE FOR OBSERVATION AND ASSESSMENT OF PATIENT S PAIN LEVEL AND EFFECTIVENESS OF PAIN MANAGEMENT REGIMEN. SKILLED NURSE TO INSTRUCT PATIENT/CAREGIVER REGARDING PHARMACOLOGIC AND NON-PHARMACOLOGIC PAIN CONTROL MEASURES. SKILLED NURSE TO REPORT TO PHYSICIAN IF PAIN IS UNCONTROLLED WITH CURRENT PAIN MANAGEMENT REGIMEN. [code = SKILLED NURSE FOR OBSERVATION AND ASSESSMENT OF PATIENT S PAIN LEVEL AND EFFECTIVENESS OF PAIN MANAGEMENT REGIMEN. SKILLED NURSE TO INSTRUCT PATIENT/CAREGIVER REGARDING PHARMACOLOGIC AND NON-PHARMACOLOGIC PAIN CONTROL MEASURES. SKILLED NURSE TO REPORT TO PHYSICIAN IF PAIN IS UNCONTROLLED WITH CURRENT PAIN MANAGEMENT REGIMEN.] Future Scheduled Test PATIENT HERNANDEZ S A RISK OF HOSPITALIZATION AND ED USE. SKILLED NURSE TO ESTABLISH SUPPORT MEASURES TO MINIMIZE RISK OF HOSPITALIZATION AND ED USE, AND INSTRUCT PATIENT/CAREGIVER ON METHODS TO REDUCE AVOIDABLE HOSPITALIZATION AND ED USE. [code = PATIENT HAS A RISK OF HOSPITALIZATION AND ED USE. SKILLED NURSE TO ESTABLISH SUPPORT MEASURES TO MINIMIZE RISK OF HOSPITALIZATION AND ED USE, AND INSTRUCT PATIENT/CAREGIVER ON METHODS TO REDUCE AVOIDABLE HOSPITALIZATION AND ED USE.] Future Scheduled Test SKILLED NU RSE TO REVIEW PATIENT MEDICATIONS. INSTRUCT PATIENT/CAREGIVER ON MONITORING OF EFFECTIVENESS, ADVERSE DRUG REACTIONS, SIDE EFFECTS OF ALL MEDICATIONS (PRESCRIPTION/-OTC), AND HOW AND WHEN TO REPORT PROBLEMS. [code = SKILLED NURSE TO REVIEW PATIENT MEDICATIONS. INSTRUCT PATIENT/CAREGIVER ON MONITORING OF EFFECTIVENESS, ADVERSE DRUG REACTIONS, SIDE EFFECTS OF ALL MEDICATIONS (PRESCRIPTION/-OTC), AND HOW AND WHEN TO REPORT PROBLEMS.] Future Scheduled Test SKILLED NU RSE FOR O/A OF CLIENT'S SOCIAL ISOLATION AND PROVIDE ASSISTANCE TO CLIENT IN DEVELOPMENT OF PLANNED ACTIVITIES [code = SKILLED NURSE FOR O/A OF CLIENT'S SOCIAL ISOLATION AND PROVIDE ASSISTANCE TO CLIENT IN DEVELOPMENT OF PLANNED ACTIVITIES] Future Scheduled Test SKILLED NU RSE TO ASSESS PATIENT S PSYCHOSOCIAL STATUS TO IDENTIFY POTENTIAL ISSUES THAT MAY COMPLICATE THE PROVISION OF THE PLAN OF CARE INCLUDING THE PATIENT S ABILITY TO ACCESS COMMUNITY RESOURCES AND PSYCHOSOCIAL SUPPORT SERVICES. [code = SKILLED NURSE TO ASSESS PATIENT S PSYCHOSOCIAL STATUS TO IDENTIFY POTENTIAL ISSUES THAT MAY COMPLICATE THE PROVISION OF THE PLAN OF CARE INCLUDING THE PATIENT S ABILITY TO ACCESS COMMUNITY RESOURCES AND PSYCHOSOCIAL SUPPORT SERVICES.] Future Scheduled Test SKILLED NU RSE WILL MAINTAIN SITUATIONAL AWARENESS FOR SAFETY AND WILL NOTIFY CLINICAL CHIROPRACTIC CARE AND PHYSICIAN/PROVIDER WITH ANY CHANGE IN CONDITION. [code = SKILLED NURSE WILL MAINTAIN SITUATIONAL AWARENESS FOR SAFETY AND WILL NOTIFY CLINICAL CHIROPRACTIC CARE AND PHYSICIAN/PROVIDER WITH ANY CHANGE IN CONDITION.] Future Scheduled Test SKILLED NU RSE TO PROVIDE INSTRUCTION TO PATIENT/CAREGIVER RELATED TO DISCHARGE PLANNING. [code = SKILLED NURSE TO PROVIDE INSTRUCTION TO PATIENT/CAREGIVER RELATED TO DISCHARGE PLANNING.] Goal Patient Goal - STAY OUT OF [facility] Goal Provider Goal - A PLAN OF CARE WILL BE ESTABLISHED THAT MEETS PATIENT'S ALF NEEDS AND INCLUDES PATIENT GOAL FOR HOME HEALTH. Goal Provider Goal - PATIENT WILL COMPLY WITH MEDICATION WHEN SKILLED NURSE PRE-POURS MEDICATION THROUGHOUT CERTIFICATION PERIOD. Goal Provider Goal - MEDICATION WILL BE AVAILABLE DURING INCLEMENT WEATHER OR EMERGENT EVENT THROUGHOUT CERTIFICATION PERIOD. Goal Provider Goal - ALTERED MENTAL/BEHAVIORAL STATUS WILL BE IDENTIFIED PROMPTLY AND INTERVENTION INITIATED QUICKLY TO MINIMIZE ASSOCIATED RISKS THROUGHOUT CERTIFICATION PERIOD. Goal Provider Goal - CHANGE IN GENERAL HEALTH STATUS WILL BE IDENTIFIED AND REPORTED TO PHYSICIAN FOR PROMPT INTERVENTION TO MINIMIZE ASSOCIATED RISKS THROUGHOUT CERTIFICATION PERIOD. Goal Provider Goal - PATIENT WILL REMAIN SAFE WITHOUT DECOMPENSATION IN DEPRESSIVE CONDITION, WHILE MAINTAINING OPTIMAL LEVEL OF MENTAL HEALTH AND WELL BEING THROUGHOUT CERTIFICATION PERIOD. Goal Provider Goal - PATIENT/CAREGIVER WILL VERBALIZE SIGNS AND SYMPTOMS OF HYPERTENSION AND WILL BE ABLE TO DEMONSTRATE ABILITY TO MANAGE EXACERBATION BY END OF THE EPISODE. Goal Provider Goal - PATIENT/CAREGIVER WILL VERBALIZE SIGNS AND SYMPTOMS OF HYPOTENSION AND WILL BE ABLE TO DEMONSTRATE ABILITY TO MANAGE EXACERBATION BY END OF THE EPISODE. Goal Provider Goal - PATIENT/CAREGIVER WILL VERBALIZE/DEMONSTRATE EFFECTIVE HOME SAFETY AND FALL PREVENTION STRATEGIES THROUGHOUT CERTIFICATION PERIOD. Goal Provider Goal - PATIENT/CAREGIVER WILL DEMONSTRATE UNDERSTANDING OF PHARMACOLOGIC AND NONPHARMACOLOGIC PAIN CONTROL MEASURES AND PATIENT WILL HAVE IMPROVEMENT IN PAIN INTERFERING WITH ACTIVITY EVIDENCED BY PAIN AT A LEVEL THAT IS ACCEPTABLE TO THE PATIENT AND PAIN LEVEL WITHIN ESTABLISHED PARAMETERS BY END OF CERTIFICATION PERIOD. Goal Provider Goal - PATIENT WILL HAVE SUPPORT MEASURES ESTABLISHED TO PREVENT HOSPITALIZATION AND ED USE AND PATIENT/CAREGIVER WILL VERBALIZE/DEMONSTRATE METHODS TO REDUCE AVOIDABLE HOSPITALIZATION AND ED USE BY END OF EPISODE. Goal Provider Goal - PATIENT/CAREGIVER WILL VERBALIZE UNDERSTANDING OF EDUCATION PROVIDED ON MEDICATIONS BY THE END OF THE CERTIFICATION PERIOD. Goal Provider Goal - PATIENT WILL DEMONSTRATE AN INCREASED INTEREST IN SOCIALIZATION AND ACTIVITIES BY THE END OF THE CERTIFICATION PERIOD. Goal Provider Goal - PSYCHOSOCIAL NEEDS WILL BE IDENTIFIED AND PLAN IMPLEMENTED TO MINIMIZE RISK THROUGHOUT CERTIFICATION PERIOD. Goal Provider Goal - PATIENT WILL REMAIN SAFE IN THE COMMUNITY AND WILL BE FREE OF DANGER TO SELF AND OTHERS THROUGHOUT THE CERTIFICATION PERIOD. Goal Provider Goal - PATIENT/CAREGIVER WILL VERBALIZE UNDERSTANDING OF DISCHARGE PLANNING INSTRUCTIONS BY DATE OF DISCHARGE. Progress Notes Progress Notes <paragraph>[Visit Date: 2024 by RENE JOSEPH RN]:</paragraph><paragraph>PATIENT ALERT AND ABLE TO MAKE NEEDS KNOWN AMBULATING WITH A WALKER, PATIENT WITH HISTORY OF GOUT FLARE UPS ESPECIALLY ON RIGHT LOWER EXTREMITY, PATIENT PROVIDED WITH EDUCATION ON GOUT FLARE MANAGEMENT INCLUDING IMPORTANCE OF HYDRATION, AVOIDING HIGH PURINE FOODS AND ELAVATING THE EFFECTED EXTREMITY,,PATIENT HAS A DR APPOINTMENT THIS COMING SUNDAY FOR MEDICATION REVIEW AND PAIN MANAGEMENT</paragraph> Encounters Start Date/Time End Date/Time Encounter Type Admission Type Attending [facility] Facility Care Department Encounter ID Discharge Date Discharge Status Discharge Condition Discharge Reason Percent Goals Met 2025-08-14 00:00:00 2025-10-12 00:00:00 Outpatient NEW ADMISSION RENE JOSEPH [facility] [id number] 14.29
== END 2025-09-09 14:59 | disposition home or self-care (01) ==
LOC: HO.HMCH 13:40
PROVIDERS: PCP Internal Medicine; Visit Provider Internal Medicine
DX: M1A.2710 Drug-induced chronic gout, right ankle and foot, without tophus (tophi) (principal); M79.671 Pain in right foot; I10 Essential (primary) hypertension; D52.0 Dietary folate deficiency anemia

== ENCOUNTER → 2025-09-09 13:39 | Outpatient (BNVA) | payer MEDICARE, SELFPAY | PROVIDERS: PCP Internal Medicine; Visit Provider Internal Medicine | DX: M1A.2710 Drug-induced chronic gout, right ankle and foot, without tophus (tophi) (principal); M79.671 Pain in right foot; I10 Essential (primary) hypertension; D52.0 Dietary folate deficiency anemia | CPT/HCPCS: 99212 ==